=== PATIENT | male | born 1940 | race Caucasian/White ===

== ENCOUNTER → 2019-02-27 15:58 | Outpatient (CLI) | payer MEDICARE, SELFPAY | PROVIDERS: PCP Internal Medicine; Visit Provider Internal Medicine | DX: R19.5 Other fecal abnormalities (principal); R15.9 Full incontinence of feces; R19.7 Diarrhea, unspecified; C61 Malignant neoplasm of prostate ==

== ENCOUNTER → 2019-03-20 13:32 | Outpatient (CLI) | payer MEDICARE, SELFPAY ==
[2019-03-20 16:36] LABS: Thyroid Stimulating Hormone 1.55 uIU/mL (0.47-4.68)
== END ==
PROVIDERS: PCP Internal Medicine; Visit Provider Internal Medicine Cardiovascular Disease
DX: I48.91 Unspecified atrial fibrillation (principal)
CPT/HCPCS: 36415; 84443

== ENCOUNTER → 2019-03-22 15:47 | Outpatient (CLI) | payer MEDICARE, SELFPAY ==
[2019-03-22 16:54] LABS: Add Manual Diff / Slide Review NO; Basophils Absolute Auto 100 /uL (0-100); Basophils Percent Auto 0.9 % (0-2); Eosinophils Absolute Auto 300 /uL (0-450); Eosinophils Percent Auto 4.5 % (2-4); Hematocrit 40.4 % (41-53); Hemoglobin 13.5 g/dL (13.5-17.5); Lymphocytes Absolute Auto 1400 /uL (1100-4500); Lymphocytes Percent Auto 22.9 % (25-40); Mean Corpuscular HGB Conc 33.4 % (30-36); Mean Corpuscular Hemoglobin 31.8 PG (26-34); Mean Corpuscular Volume 95.3 fL (80-100); Monocytes Absolute Auto 500 /uL (0-900); Monocytes Percent Auto 8.1 % (3-14); Neutrophils Absolute Auto 3900 /uL (1500-7000); Neutrophils Percent Auto 63.6 % (50-75); Platelet Count 227 X10^3/uL (150-400); Red Blood Cell Count 4.24 X10^6/uL (4.5-5.9); Red Cell Distribution Width 14.1 % (11.6-14.8); White Blood Cell Count 6.1 X10^3/uL (4.5-11.0)
[2019-03-22 16:56] LABS: Reticulocyte Count, Percent 0.5 % (0.87-2.60)
[2019-03-22 17:19] LABS: HEMOLYSIS < 15 (0-50); Iron 102 ug/dL (49-181)
[2019-03-22 17:23] LABS: Blood Urea Nitrogen 24 mg/dL (9-20); C-Reactive Protein Quant 0.9 mg/dL (<1.0); Calcium 9.5 mg/dL (8.4-10.2); Carbon Dioxide 32 mmol/L (22-32); Chloride 102 mmol/L (98-107); Estimated Glomerular Filt Rate > 60.0 mL/min (>60); Glucose 93 mg/dL (80-110); HEMOLYSIS < 15 (0-50); Potassium 4.3 mmol/L (3.4-5.1); Sodium 139 mmol/L (137-145)
[2019-03-22 17:30] LABS: Percent Iron Saturation 32 % (20-50); Total Iron Binding Capacity 317 ug/dL (261-462); Transferrin 234 mg/dL (206-381)
[2019-03-22 17:58] LABS: Erythrocyte Sedimentation Rate 9 MM/HR (0-15)
[2019-03-22 18:28] LABS: Folate > 20.0 ng/mL (2.76-20.0); Vitamin B12 631 pg/mL (239-931)
[2019-03-24 14:55] LABS: Haptoglobin 96 mg/dL (43-212)
== END ==
PROVIDERS: PCP Internal Medicine; Visit Provider Internal Medicine
DX: D64.9 Anemia, unspecified (principal); I10 Essential (primary) hypertension; I48.91 Unspecified atrial fibrillation; Z79.01 Long term (current) use of anticoagulants
CPT/HCPCS: 36415; 80048; 82607; 82746; 83010; 83540; 83550; 85025; 85045; 85651; 86140

== ENCOUNTER → 2019-04-30 11:06 | Outpatient (CLI) | payer MEDICARE, SELFPAY ==
[2019-04-30 14:51] LABS: Adenovirus F 40/41 Not Detected (Not Detect); Astrovirus Not Detected (Not Detect); Campylobacter Not Detected (Not Detect); Clostridium difficile toxin AB Not Detected (Not Detect); Cryptosporidium Not Detected (Not Detect); Cyclospora cayetanensis Not Detected (Not Detect); Entamoeba histolytica Not Detected (Not Detect); Enteroaggregative E.coli Not Detected (Not Detect); Enteropathogenic E.coli Not Detected (Not Detect); Enterotoxigenic E.coli It/st Not Detected (Not Detect); Giardia lamblia Not Detected (Not Detect); Norovirus GI/GII Not Detected (Not Detect); Plesiomonsa shigelloides Not Detected (Not Detect); Rotavirus A Not Detected (Not Detect); Salmonella Not Detected (Not Detect); Shiga-like toxin-prod E.coli Not Detected (Not Detect); Shigella/Enteroinvasive E.coli Not Detected (Not Detect); Vibrio Not Detected (Not Detect); Vibrio cholerae Not Detected (Not Detect); Yersinia enterocolitica Not Detected (Not Detect)
== END ==
PROVIDERS: PCP Internal Medicine; Visit Provider Physician Assistant
DX: R15.9 Full incontinence of feces (principal)
CPT/HCPCS: 87507

== ENCOUNTER → 2019-10-26 15:19 | Outpatient (CLI) | payer MEDICARE, SELFPAY ==
[2019-10-26 16:42] LABS: Alanine Aminotransferase 26 IU/L (<50); Albumin 4.3 g/dL (3.5-5.0); Albumin Globulin Ratio 1.7 (1.0-2.8); Alkaline Phosphatase 79 U/L (38-126); Aspartate Aminotransferase 34 IU/L (17-59); BUN Creatinine Ratio 23.6 (6-22); Bilirubin Total 0.9 mg/dL (0.2-1.3); Blood Urea Nitrogen 26 mg/dL (9-20); C-Reactive Protein Quant 0.6 mg/dL (<1.0); Calcium 9.4 mg/dL (8.4-10.2); Carbon Dioxide 31 mmol/L (22-32); Chloride 102 mmol/L (98-107); Estimated Glomerular Filt Rate > 60.0 mL/min (>60); Globulin 2.6 g/dL (1.7-4.1); Glucose 99 mg/dL (80-110); HEMOLYSIS < 15 (0-50); Potassium 3.9 mmol/L (3.4-5.1); Sodium 140 mmol/L (137-145); Total Protein 6.9 g/dL (6.3-8.2)
[2019-10-26 16:44] LABS: Add Manual Diff / Slide Review NO; Basophils Absolute Auto 0 /uL (0-100); Basophils Percent Auto 0.7 % (0-2); Eosinophils Absolute Auto 100 /uL (0-450); Eosinophils Percent Auto 2.4 % (2-4); Hematocrit 41.2 % (41-53); Lymphocytes Absolute Auto 1200 /uL (1100-4500); Lymphocytes Percent Auto 20.8 % (25-40); Mean Corpuscular HGB Conc 33.9 % (30-36); Mean Corpuscular Hemoglobin 32.6 PG (26-34); Mean Corpuscular Volume 96.2 fL (80-100); Monocytes Absolute Auto 500 /uL (0-900); Monocytes Percent Auto 7.9 % (3-14); Neutrophils Absolute Auto 4100 /uL (1500-7000); Neutrophils Percent Auto 68.2 % (50-75); Platelet Count 210 X10^3/uL (150-400); Red Blood Cell Count 4.28 X10^6/uL (4.5-5.9); Red Cell Distribution Width 14.9 % (11.6-14.8); White Blood Cell Count 5.9 X10^3/uL (4.5-11.0)
[2019-10-26 17:34] LABS: Erythrocyte Sedimentation Rate 5 MM/HR (0-15)
== END ==
PROVIDERS: PCP Internal Medicine; Visit Provider Internal Medicine
DX: R10.9 Unspecified abdominal pain (principal)
CPT/HCPCS: 36415; 80053; 85025; 85651; 86140

== ENCOUNTER → 2019-10-30 12:37 | Outpatient (CLI) | payer MEDICARE, SELFPAY ==
--- NOTE | 2019-10-30 12:38 | DI.US.S_ITS ---
PROCEDURE: US RENAL COMPLETE INDICATIONS: RT FLANK PAIN TECHNIQUE: Real-time scanning was performed of the kidneys and bladder, with image documentation. COMPARISON: None. FINDINGS: Kidneys: Kidneys are normal in size. Right kidney measures 10.7 cm long; left kidney measures 10.6 cm long. Right renal cortical thickness is 1.1 cm; left renal cortical thickness is 1.6 cm. Renal cortical echotexture is normal. No hydronephrosis or nephrolithiasis. No suspicious solid mass lesions. Bladder: Pre-void bladder volume is 152 mL. Post-void residual is 54 mL. Pre-void images demonstrate no intraluminal masses or stones. On pre-void images, bilateral ureteral jets are noted with color Doppler interrogation. (Of note, ureteral jets may not be detectable in up to 25% of cases due to insufficient differences in specific gravity between ureteral and bladder urine). Miscellaneous: No free pelvic fluid. Incidental finding of cholelithiasis without evidence for cholecystitis. IMPRESSION: 1. No source for right flank pain identified. 2. Cholelithiasis without acute cholecystitis. Dictated by: Lukas Garcia [facility] Interpreted: Cally Escalante MD on 10/30/2019 at 15:05 Approved by: Cally Escalante M.D. on 10/30/2019 at 16:22
== END ==
PROVIDERS: PCP Internal Medicine; Visit Provider Internal Medicine
DX: R10.9 Unspecified abdominal pain (principal); K80.20 Calculus of gallbladder without cholecystitis without obstruction
CPT/HCPCS: 76770

== ENCOUNTER 2020-06-06 12:06 | Emergency (ER) | payer MEDICARE, SELFPAY ==
[2020-06-06] VITALS (15 sets, daily range): BP systolic 115–162; BP diastolic 72–94; PULSE 69–86; RESP 15–30; TEMP 36.7; O2SAT 94–98; BMI 30.1
--- NOTE | 2020-06-06 12:38 | DI.US.S_ITS ---
PROCEDURE: US CAROTID DOPPLER BI INDICATIONS: SYNCOPE TECHNIQUE: Color and pulse Doppler interrogation was performed of both carotid systems, with image documentation and velocity measurements. COMPARISON: None. FINDINGS: Stenosis calculations are based on SRU (Society of Radiologists in Ultrasound) criteria. Right side: Brachial blood pressure: 125/79 mm Hg. Common carotid artery peak systolic velocity: 63 cm/sec. Internal carotid artery peak systolic velocity: 32 cm/sec. Internal carotid artery end diastolic velocity: 14 cm/sec. External carotid artery peak systolic velocity: 74 cm/sec. ICA/CCA peak systolic ratio: 0.5 . Yu scale imaging description: Mild soft plaque Percent internal carotid artery stenosis: Less than 50% stenosis . Vertebral artery: Flow direction is not identified. Left side: Brachial blood pressure: 128/88 mm Hg. Common carotid artery peak systolic velocity: 54 cm/sec. Internal carotid artery peak systolic velocity: 44 cm/sec. Internal carotid artery end diastolic velocity: 16 cm/sec. External carotid artery peak systolic velocity: 70 cm/sec. ICA/CCA peak systolic ratio: 0.8 . Yu scale imaging description: Pqja-mg-[id number] soft plaque Percent internal carotid artery stenosis: Less than 50% stenosis . Vertebral artery: Flow direction is antegrade. IMPRESSION: Mild to moderate soft plaque within the carotid arteries, no significant stenosis found. Based on the imaging findings less than 50% stenosis is estimated to be present at each proximal internal carotid artery. Nonvisualization of the right vertebral artery likely due to a normal anatomic variant diminutive right vertebral vessel. Dictated by: Tarik Snow M.D. on 06/06/2020 at 13:50 Approved by: Tarik Snow M.D. on 06/06/2020 at 13:52
--- NOTE | 2020-06-06 12:38 | DI.CT.S_ITS ---
PROCEDURE: CT HEAD/BRAIN WO CON INDICATIONS: fall coumadin TECHNIQUE: Noncontrast 4.5 mm thick angled axial sections acquired from the foramen magnum to the vertex, with coronal and sagittal reformats. For radiation dose reduction, the following was used: automated exposure control, adjustment of mA and/or kV according to patient size. COMPARISON: None. FINDINGS: Image quality: Excellent. CSF spaces: Basal cisterns are patent. No extra-axial fluid collections. The ventricles are symmetric in size and shape. Brain: No intracranial bleeds or masses. There is cerebral volume loss for age, with resultant ventricular and sulcal prominence. There are periventricular and deep white matter chronic small vessel ischemic changes. There is intracranial internal carotid artery atherosclerosis. Skull and face: Calvarium and visualized facial bones appear intact, without suspicious lesions. Sinuses: Visualized sinuses and mastoids are clear. IMPRESSION: Mild microvascular atherosclerotic change in the deep white matter of each hemisphere but no brain injury is found. Note is made of a mild cephalohematoma involving the midline and left paramedian forehead region. Dictated by: Tarik Snow M.D. on 06/06/2020 at 13:54 Approved by: Tarik Snow M.D. on 06/06/2020 at 13:54
--- NOTE | 2020-06-06 12:39 | DI.RAD.S_ITS ---
PROCEDURE: XR CHEST 1V INDICATIONS: syncope TECHNIQUE: One view of the chest was acquired. COMPARISON: None. FINDINGS: Surgical changes and devices: None. Lungs and pleura: Lungs are clear. No pleural effusions or pneumothorax. Mediastinum: Mediastinal contours appear normal. Heart size is normal. Bones and chest wall: No suspicious bony lesions. Overlying soft tissues appear unremarkable. IMPRESSION: No acute disease. Dictated by: Javier Jim M.D. on 06/06/2020 at 13:38 Approved by: Javier Jim M.D. on 06/06/2020 at 13:39
--- NOTE | 2020-06-06 12:54 | ED_ITS ---
HPI - Syncope General Chief Complaint: Trauma Stated Complaint: fainted last night, hit forehead on carpet Time Seen by Provider: 06/06/20 12:31 Source: patient Mode of arrival: Family Vehicle Limitations: no limitations History of Present Illness HPI narrative: Patient is an 80-year-old male who presents after syncopal episode last evening. He states he got up from his reclining chair he walked around the corner and his heard him pass out hitting his face and head. He is on Coumadin for atrial fibrillation. He states that he may have felt like he was going to pass out he had some brief episode of dizziness but it was too brief for him to do anything before he hit the ground. He thought he could get to the bed but he was unable to do so. His states that he was out for quite some time but he was able to turn his head and come to. They decided to wait until morning is for him to be evaluated. He currently denies any chest pain numbness tingling or weakness. He has a large contusion on left side of his head. He said this happened to him once before 13 years ago prior to when he was diagnosed with atrial fibrillation MD complaint: loss of consciousness and collapsed Related Data Home Medications Medication Instructions Recorded Confirmed metoprolol tartrate 75 mg tablet 75 mg PO BID 03/22/19 11/01/19 Previous Rx's Medication Instructions Recorded tamsulosin 0.4 mg capsule 0.4 mg PO DAILY #90 cap 01/01/20 warfarin 5 mg tablet 5 mg PO DAILY #90 tab 01/01/20 furosemide 20 mg tablet 20 mg PO DAILY #90 tab 01/03/20 allopurinol 300 mg tablet 300 mg PO DAILY #90 tab 06/02/20 Allergies Allergy/AdvReac Type Severity Reaction Status Date / Time No Known Drug Allergies Allergy Verified 06/06/20 12:38 Review of Systems Review of Systems Narrative: GENERAL: Denies chills, fatigue, malaise, fever, sweats, travel HEENT: Denies sinus pain, ear pain, sore throat, difficulty swallowing, neck pain RESPIRATORY: Denies dyspnea, cough, wheezing, hemoptysis, sputum. CARDIOVASCULAR: See HPI GASTROINTESTINAL: Denies nausea, vomiting, abdominal pain, diarrhea, constipation, melena. : Denies dysuria, frequency, incontinence, hematuria, urinary retention, flank pain. MUSCULOSKELETAL: Denies weakness, joint pain, or bony pain SKIN: No rash, no erythema, no pruritus NEUROLOGIC: Denies weakness, dizziness, headache, numbness, change in speech, confusion PSYCHIATRIC: No concerning psychosocial issues. 12 point review of systems is negative except for those stated above and HPI Patient History Medical History Anemia (Chronic) Atrial fibrillation (Chronic ~2006) Chicken pox (Resolved) Fecal incontinence (Chronic ~2014) Gout (Chronic ~1996) Hearing loss (Chronic ~1971) Herpes (Resolved) Hypertension (Chronic ~2006) Kidney stones (Inactive ~2009) Low testosterone (Chronic ~2011) Measles (Resolved) Melanoma (Resolved ~2017) Mumps (Resolved) Peripheral edema (Chronic) Prostate cancer (Inactive ~2011) Seasonal allergies (Chronic ~2009) Urinary incontinence (Acute) Vision disorder (Chronic) Surgical History Carcinoma (Inactive ~2016) History of rotator cuff surgery (Inactive ~1994) Family History Father Cancer Hypertension Sister Stomach problems Grandfather Lung disease Grandmother No problems noted. Social History Smoking Status: Former smoker Smoking Status: Former smoker alcohol intake frequency: 0-2 drinks per day Alcohol type: wine Substance Use Type: does not use Exam Initial Vital Signs Initial Vital Signs: Vital Signs Temperature 98.0 F 06/06/20 12:33 Pulse Rate 81 06/06/20 12:33 Respiratory Rate 17 06/06/20 12:33 Blood Pressure 123/79 06/06/20 12:33 Pulse Oximetry 97 06/06/20 12:33 GENERAL: Well-appearing, well-nourished and in no acute distress. HEENT: Head contusion left forehead extraocular muscles intact NECK: No vertebral tenderness step-offs pain with flexion and extension no pain with rotation CARDIOVASCULAR: Regular rate and rhythm without murmurs, rubs or gallops. RESPIRATORY: Breath sounds equal bilaterally, no wheezes rales or rhonchi. ABDOMEN: Soft, nontender. Normoactive bowel sounds all 4 quadrants. No guarding or rebound. EXTREMITIES: Normal range of motion, no clubbing or edema. Neurovascularly intact NEUROLOGICAL: Alert and oriented x4.Normal gait and speech. Forming Process Line Worker strength equal bilaterally SKIN: Warm, dry, no laceration, no petechiae, no rashes or lesions. Scores NIH Stroke Scale Level of Conciousness: Alert, keenly responsive Ask month/age: Answers both questions correctly. Open/close eyes, close hand: Performs both tasks correctly Best gaze horizontal: Normal Visual colindres: No visual loss Facial palsy: Normal symetrical movement Left arm drift: No drift for full 10 sec Right arm drift: No drift for full 10 sec Left leg drift: No drift for full 10 sec Right leg drift: No drift for full 10 sec Limb ataxia: Absent Sensory on face/arms/legs: Normal, no sensory loss Best language: No aphasia, normal Dysarthria: Normal Extinction or inattention: No abnormality Total NIH Stroke scale score: 0 Course Orders Ordered: ED Orders 06/06/20 12:38 CT head/brain wo con Stat US carotid doppler BI Stat 06/06/20 12:39 XR chest 1V Stat 06/06/20 12:40 EKG-12 Lead Stat 06/06/20 13:19 CT cervical spine wo con Stat 06/06/20 13:22 Complete Blood Count AUTO DIFF Stat Comprehensive Metabolic Panel Stat Lipase Stat Partial Thromboplastin Time Stat Prothrombin Time INR Stat Troponin & CK Cardiac Panel Stat 06/06/20 15:21 Troponin I Stat Discontinued Medications Sodium Chloride (Normal Saline 0.9%) 1,000 mls @ 150 mls/hr IV CONT HEIKE Last Infusion: 06/06/20 17:28 Dose: 0 mls/hr Documented by: Admin: 06/06/20 13:00 Dose: 150 mls/hr Documented by: MANOJ Vital Signs Vital signs: Vital Signs - 8 hr 06/06/20 12:33 06/06/20 12:34 06/06/20 13:00 Temperature 98.0 F Pulse Rate 81 86 75 Respiratory Rate 17 23 26 H Blood Pressure 123/79 Pulse Oximetry 97 96 95 06/06/20 13:03 06/06/20 13:04 06/06/20 13:15 Temperature Pulse Rate 74 73 77 Respiratory Rate 26 H 21 30 H Blood Pressure 128/88 125/79 128/87 Pulse Oximetry 95 96 96 06/06/20 13:30 06/06/20 14:00 06/06/20 14:30 Temperature Pulse Rate 70 72 70 Respiratory Rate 20 20 Blood Pressure 115/72 120/80 138/85 Pulse Oximetry 97 94 96 06/06/20 15:00 06/06/20 15:30 06/06/20 16:00 Temperature Pulse Rate 69 70 70 Respiratory Rate 19 15 18 Blood Pressure 153/90 H 151/88 H Pulse Oximetry 96 97 98 06/06/20 16:30 06/06/20 17:00 06/06/20 17:03 Temperature Pulse Rate 71 71 77 Respiratory Rate 23 28 H 18 Blood Pressure 143/88 H 162/82 H 151/94 H Pulse Oximetry 97 97 98 MDM - Syncope Lab Data Attestation: I reviewed the patient's lab results. Result diagrams: 06/06/20 13:22 06/06/20 13:22 Labs: Lab Results 06/06/20 06/06/20 06/06/20 Range/Units 13:22 13:22 13:22 WBC 8.3 (4.5-11.0) X10^3/uL RBC 4.23 L (4.5-5.9) X10^6/uL Hgb 13.7 (13.5-17.5) g/dL Hct 40.8 L (41-53) % MCV 96.5 (80-100) fL MCH 32.3 (26-34) PG MCHC 33.5 (30-36) % RDW 14.6 (11.6-14.8) % Plt Count 187 (150-400) X10^3/uL Neut % (Auto) 76.3 H (50-75) % Lymph % (Auto) 14.0 L (25-40) % [place] % (Auto) 7.2 (3-14) % Eos % (Auto) 1.5 L (2-4) % Baso % (Auto) 1.0 (0-2) % Neut # (Auto) 6300 (3169-3314) /uL Lymph # (Auto) 1200 (2759-3937) /uL [place] # (Auto) 600 (0-900) /uL Eos # (Auto) 100 (0-450) /uL Baso # (Auto) 100 (0-100) /uL PT 29.0 H (10.1-12.7) SECONDS INR 2.6 H (0.9-1.3) APTT 41 H (26.4-36.2) SECONDS Sodium 138 (137-145) mmol/L Potassium 4.0 (3.4-5.1) mmol/L Chloride 105 (98-107) mmol/L Carbon Dioxide 28 (22-32) mmol/L BUN 25 H (9-20) mg/dL Creatinine 0.95 (0.66-1.25) mg/dL Estimated GFR > 60.0 (>60) mL/min BUN/Creatinine Ratio 26.3 H (6-22) Glucose 103 (80-110) mg/dL Calcium 9.1 (8.4-10.2) mg/dL Total Bilirubin 1.2 (0.2-1.3) mg/dL AST 36 (17-59) IU/L ALT 28 (<50) IU/L Alkaline Phosphatase 86 (38-126) U/L Total Creatine Kinase 151 (55-170) U/L CK-MB (CK-2) 2.67 H (<2.37) ng/mL CK-MB (CK-2) Rel Index 1.8 (1.5-5.0) % Troponin I 0.101 H (0.01-0.034) ng/mL Total Protein 6.9 (6.3-8.2) g/dL Albumin 4.1 (3.5-5.0) g/dL Globulin 2.8 (1.7-4.1) g/dL Albumin/Globulin Ratio 1.5 (1.0-2.8) Lipase 153 (23-300) U/L 06/06/ Range/Units 15:21 WBC (4.5-11.0) X10^3/uL RBC (4.5-5.9) X10^6/uL Hgb (13.5-17.5) g/dL Hct (41-53) % MCV (80-100) fL MCH (26-34) PG MCHC (30-36) % RDW (11.6-14.8) % Plt Count (150-400) X10^3/uL Neut % (Auto) (50-75) % Lymph % (Auto) (25-40) % [place] % (Auto) (3-14) % Eos % (Auto) (2-4) % Baso % (Auto) (0-2) % Neut # (Auto) (4307-8414) /uL Lymph # (Auto) (0577-4768) /uL [place] # (Auto) (0-900) /uL Eos # (Auto) (0-450) /uL Baso # (Auto) (0-100) /uL PT (10.1-12.7) SECONDS INR (0.9-1.3) APTT (26.4-36.2) SECONDS Sodium (137-145) mmol/L Potassium (3.4-5.1) mmol/L Chloride (98-107) mmol/L Carbon Dioxide (22-32) mmol/L BUN (9-20) mg/dL Creatinine (0.66-1.25) mg/dL Estimated GFR (>60) mL/min BUN/Creatinine Ratio (6-22) Glucose (80-110) mg/dL Calcium (8.4-10.2) mg/dL Total Bilirubin (0.2-1.3) mg/dL AST (17-59) IU/L ALT (<50) IU/L Alkaline Phosphatase (38-126) U/L Total Creatine Kinase (55-170) U/L CK-MB (CK-2) (<2.37) ng/mL CK-MB (CK-2) Rel Index (1.5-5.0) % Troponin I 0.089 H (0.01-0.034) ng/mL Total Protein (6.3-8.2) g/dL Albumin (3.5-5.0) g/dL Globulin (1.7-4.1) g/dL Albumin/Globulin Ratio (1.0-2.8) Lipase (23-300) U/L Imaging Data CT scan - head: Radiologist's Impression: PROCEDURE: CT HEAD/BRAIN WO CON INDICATIONS: fall coumadin TECHNIQUE: Noncontrast 4.5 mm thick angled axial sections acquired from the foramen magnum to the vertex, with coronal and sagittal reformats. For radiation dose reduction, the following was used: automated exposure control, adjustment of mA and/or kV according to patient size. COMPARISON: None. FINDINGS: Image quality: Excellent. CSF spaces: Basal cisterns are patent. No extra-axial fluid collections. The ventricles are symmetric in size and shape. Brain: No intracranial bleeds or masses. There is cerebral volume loss for age, with resultant ventricular and sulcal prominence. There are periventricular and deep white matter chronic small vessel ischemic changes. There is intracranial internal carotid artery atherosclerosis. Skull and face: Calvarium and visualized facial bones appear intact, without nguyen spicious lesions. Sinuses: Visualized sinuses and mastoids are clear. IMPRESSION: Mild microvascular atherosclerotic change in the deep white matter of each hemisphere but no brain injury is found. Note is made of a mild cephalohematoma involving the midline and left paramedian forehead region. Dictated by: Tarik Snow M.D. on 06/06/2020 at 13:54 Approved by: Tarik Sonw M.D. on 06/06/2020 at 13:54 CT - cervical spine: Radiologist's Impression: PROCEDURE: CT CERVICAL SPINE WO CON INDICATIONS: fall coumadin last night TECHNIQUE: Noncontrast 3 mm thick sections acquired from the skull base to the T4 level. Sagittal and coronal reformats were then constructed. For radiation dose reduction, the following was used: automated exposure control, adjustment of mA and/or kV according to patient size. COMPARISON: None. FINDINGS: Image quality: Excellent. Bones: No fractures or dislocations. Visualized superior ribs are intact. Soft tissues: Prevertebral soft tissues are normal in thickness. No paravertebral hematomas. No apical pneumothoraces. IMPRESSION: Nnhs-gn-[id number] degenerative disc disease and facet osteoarthritis along cervical spine but no fracture or traumatic subluxation is seen. Dictated by: Tarik Snow M.D. on 06/06/2020 at 13:52 Chest x-ray: Radiologist's Impression: PROCEDURE: XR CHEST 1V INDICATIONS: syncope TECHNIQUE: One view of the chest was acquired. COMPARISON: None. FINDINGS: Surgical changes and devices: None. Lungs and pleura: Lungs are clear. No pleural effusions or pneumothorax. Mediastinum: Mediastinal contours appear normal. Heart size is normal. Bones and chest wall: No suspicious bony lesions. Overlying soft tissues appear unremarkable. IMPRESSION: No acute disease. Dictated by: Javier Jim M.D. on 06/06/2020 at 13:38 carotid doppler: Radiologist's Impression: PROCEDURE: US CAROTID DOPPLER BI INDICATIONS: SYNCOPE TECHNIQUE: Color and pulse Doppler interrogation was performed of both carotid systems, with image documentation and velocity measurements. COMPARISON: None. FINDINGS: Stenosis calculations are based on SRU (Society of Radiologists in Ultrasound) criteria. Right side: Brachial blood pressure: 125/79 mm Hg. Common carotid artery peak systolic velocity: 63 cm/sec. Internal carotid artery peak systolic velocity: 32 cm/sec. Internal carotid artery end diastolic velocity: 14 cm/sec. External carotid artery peak systolic velocity: 74 cm/sec. ICA/CCA peak systolic ratio: 0.5 . Yu scale imaging description: Mild soft plaque Percent internal carotid artery stenosis: Less than 50% stenosis . Vertebral artery: Flow direction is not identified. Left side: Brachial blood pressure: 128/88 mm Hg. Common carotid artery peak systolic velocity: 54 cm/sec. Internal carotid artery peak systolic velocity: 44 cm/sec. Internal carotid artery end diastolic velocity: 16 cm/sec. External carotid artery peak systolic velocity: 70 cm/sec. ICA/CCA peak systolic ratio: 0.8 . Yu scale imaging description: Aini-jm-ikexwkje soft plaque Percent internal carotid artery stenosis: Less than 50% stenosis . Vertebral artery: Flow direction is antegrade. IMPRESSION: Mild to moderate soft plaque within the carotid arteries, no significant stenosis found. Based on the imaging findings less than 50% stenosis is estimated to be present at each proximal internal carotid artery. Nonvisualization of the right vertebral artery likely due to a normal anatomic variant diminutive right vertebral vessel. Dictated by: Tarik Snow M.D. on 06/06/2020 at 13:50 Approved by: Tarik Snow M.D. on 06/06/2020 at 13:52 ECG Data Attestation: I personally reviewed and interpreted this ECG as follows: Prior ECG tracings: not available for review Interpretation: Atrial fibrillation rate [address] changes no prior to compare [facility] Narrative Medical decision making narrative: The patient had a likely syncopal episode last evening falling and hitting his head while on Coumadin. Scans are negative carotid Doppler is also reassuring. However troponin is noted to be indet erminate. Patient denies any chest pain at all or palpitations shortness of breath he has no symptoms concerning for acute coronary syndrome. Repeat troponin has decreased. I touch base with patient's primary care provider Dr. Rizo who follow-up with patient in the clinic. At this time patient feels ready and able to go home. Discharge Plan Departure Patient Disposition: Home Clinical Impression: Closed head injury Qualifiers: Encounter type: initial encounter Qualified Code(s): S09.90XA - Unspecified injury of head, initial encounter Atrial fibrillation Qualifiers: Atrial fibrillation type: persistent (not longstanding) Qualified Code(s): I48.19 - Other persistent atrial fibrillation Discharge Date/Time: 06/06/20 18:33 Instructions: Closed Head Injury Activity Restrictions/Additional Instructions: *You have been diagnosed with closed head injury in atrial fibrillation *What to do: Be sure that when You fallen and your head is extremely important to come to the emergency department immediately specially because you are on warfarin which can cause internal brain bleeding *Continue to take medications as directed *Follow up with your primary care provider in 2-3 days *Return to ER if you should have increased confusion, weakness, chest pain, shortness of breath or any new, worsening or concerning symptoms Prescriptions: No Action tamsulosin 0.4 mg capsule 0.4 mg PO DAILY Qty: 90 RF: 1 warfarin 5 mg tablet 5 mg PO DAILY Qty: 90 RF: 3 furosemide 20 mg tablet 20 mg PO DAILY Qty: 90 RF: 1 allopurinol 300 mg tablet 300 mg PO DAILY Qty: 90 RF: 3 metoprolol tartrate 75 mg tablet 75 mg PO BID RF: 0 Referrals: Stan Rizo MD [Primary Care Provider] -
[2020-06-06] MEDS: SODIUM CHLORIDE 0.9% 1,000 ML 150 ML IV (13:00)
--- NOTE | 2020-06-06 13:08 | PC.NURSE ---
pt to ct
--- NOTE | 2020-06-06 13:19 | DI.CT.S_ITS ---
PROCEDURE: CT CERVICAL SPINE WO CON INDICATIONS: fall coumadin last night TECHNIQUE: Noncontrast 3 mm thick sections acquired from the skull base to the T4 level. Sagittal and coronal reformats were then constructed. For radiation dose reduction, the following was used: automated exposure control, adjustment of mA and/or kV according to patient size. COMPARISON: None. FINDINGS: Image quality: Excellent. Bones: No fractures or dislocations. Visualized superior ribs are intact. Soft tissues: Prevertebral soft tissues are normal in thickness. No paravertebral hematomas. No apical pneumothoraces. 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 Dictated by: Tarik Snow M.D. on 06/06/2020 at 13:52 Approved by: Tarik Snow M.D. on 06/06/2020 at 13:53
[2020-06-06 13:30] LABS: Add Manual Diff / Slide Review NO; Basophils Absolute Auto 100 /uL (0-100); Eosinophils Absolute Auto 100 /uL (0-450); Eosinophils Percent Auto 1.5 % (2-4); Hematocrit 40.8 % (41-53); Hemoglobin 13.7 g/dL (13.5-17.5); Lymphocytes Absolute Auto 1200 /uL (1100-4500); Mean Corpuscular HGB Conc 33.5 % (30-36); Mean Corpuscular Hemoglobin 32.3 PG (26-34); Mean Corpuscular Volume 96.5 fL (80-100); Monocytes Absolute Auto 600 /uL (0-900); Monocytes Percent Auto 7.2 % (3-14); Neutrophils Absolute Auto 6300 /uL (1500-7000); Neutrophils Percent Auto 76.3 % (50-75); Platelet Count 187 X10^3/uL (150-400); Red Blood Cell Count 4.23 X10^6/uL (4.5-5.9); Red Cell Distribution Width 14.6 % (11.6-14.8); White Blood Cell Count 8.3 X10^3/uL (4.5-11.0)
[2020-06-06 13:38] LABS: INR 2.6 (0.9-1.3)
[2020-06-06 13:40] LABS: PTT Partial Thromboplastin Tim 41 SECONDS (26.4-36.2)
[2020-06-06 13:42] LABS: Alanine Aminotransferase 28 IU/L (<50); Albumin 4.1 g/dL (3.5-5.0); Albumin Globulin Ratio 1.5 (1.0-2.8); Alkaline Phosphatase 86 U/L (38-126); Aspartate Aminotransferase 36 IU/L (17-59); BUN Creatinine Ratio 26.3 (6-22); Bilirubin Total 1.2 mg/dL (0.2-1.3); Blood Urea Nitrogen 25 mg/dL (9-20); Calcium 9.1 mg/dL (8.4-10.2); Carbon Dioxide 28 mmol/L (22-32); Chloride 105 mmol/L (98-107); Creatine Kinase 151 U/L (55-170); Estimated Glomerular Filt Rate > 60.0 mL/min (>60); Globulin 2.8 g/dL (1.7-4.1); Glucose 103 mg/dL (80-110); HEMOLYSIS < 15 (0-50); Lipase 153 U/L (23-300); Sodium 138 mmol/L (137-145); Total Protein 6.9 g/dL (6.3-8.2)
[2020-06-06 13:55] LABS: Troponin I 0.101 ng/mL (0.01-0.034)
[2020-06-06 13:57] LABS: CKMB % Relative Index 1.8 % (1.5-5.0); Creatine Kinase MB 2.67 ng/mL (<2.37)
[2020-06-06 15:52] LABS: Troponin I 0.089 ng/mL (0.01-0.034)
== END 2020-06-06 18:33 | disposition home or self-care (01) ==
PROVIDERS: Emergency Provider Emergency Medicine; PCP Internal Medicine
DX: S09.90XA Unspecified injury of head, initial encounter (principal); I48.19 Other persistent atrial fibrillation; Z79.01 Long term (current) use of anticoagulants; R55 Syncope and collapse; S00.93XA Contusion of unspecified part of head, initial encounter
CPT/HCPCS: 36415; 70450; 71045; 72125; 80053; 82550; 82553; 83690; 84484; 85025; 85610; 85730; 93005; 93010; 93880; 96360; 96361; 99284

== ENCOUNTER → 2020-06-18 13:58 | Outpatient (CLI) | payer MEDICARE, SELFPAY ==
--- NOTE | 2020-07-10 09:28 | P.HOLT.S_ITS ---
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 These 5 events were associated variably with atrial fibrillation and PVCs. (Patient was continuously in atrial fibrillation) Data: minimum heart rate identified was 46 beats per minute at 11:28 on 27 June 2020. Maximum heart rate was 210 beats per minute at 23:38 on 01 July 2020 during a 9 beat run of nonsustained ventricular tachycardia Patient was continuously in atrial fibrillation as above with heart rate ranging between 46 and 189 beats per minute Patient had less than 1% of identified beats as ventricular ectopic in origin There were 21 runs of nonsustained ventricular tachycardia the fastest being 9 beat run as above at 210 beats per minute. The longest run was Falcon 0.5 seconds long at a much lower rate of 120 beats per minute and could well be consistent with alternate ventricular conduction of his atrial fibrillation rather than true VT. Impression: Patient with continuous atrial fibrillation with relatively controlled rate. Also with significant episodes of nonsustained ventricular tachycardia Clinical correlation suggested
== END ==
PROVIDERS: Family Provider Internal Medicine; PCP Internal Medicine; Referring Provider Internal Medicine; Visit Provider Internal Medicine
DX: R55 Syncope and collapse (principal)
CPT/HCPCS: 0296T; 0298T

== ENCOUNTER → 2020-07-17 14:50 | Outpatient (CLI) | payer MEDICARE, SELFPAY ==
--- NOTE | 2020-07-17 14:54 | DI.ECHO.S_ITS ---
[facility] +---------+ : : [address] : [address] : : : : [id number] : : : : Phone: [phone]+ Echocardiogram Report + + :Name: AZIZA FARMER Study Date: 07/17/2020 Height: 73 in : :[facility] Weight: 210 lb : : Gender: Male BSA: 2.2 m2 : :: 1940 Age: 80 yrs BP: 126/89 mmHg: :Reason For Study: AFIB, VENT TACHYCARDIA : :Ordering Physician: SAMMI, : :CAMMY Cavazos Performed By: Yoli Irving : :Referring: CAMMY CHAPA : + + Interpretation Summary 1) Normal left ventricular size with mildly increased thickness and low normal systolic function (EF 50-55%). 2) Normal right ventricular size with mildly reduced function. 3) Both atria are very severely dilated. 4) There is mild to moderate mitral regurgitation. 5) There is moderate tricuspid regurgitation. 6) The right ventricular systolic pressure is estimated to be at least 38 mmHg based on an estimated right atrial pressure of 8 mm Hg. 7) The ascending aorta is moderately enlarged at 4.7cm. 8) Compared to the Echo done 04/16/2019, no significant change. Procedure: A two-dimensional transthoracic echocardiogram with color flow and Doppler was performed. The study quality was technically adequate. Comparison is made with the echocardiogram of 04/16/2019. The patient was in atrial fibrillation with heart rates between 73-91 bpm during the exam. Left Ventricle: The left ventricle is normal in size. Left ventricular wall thickness is mildly increased. The ejection fraction is estimated to be 50- 55%. Diastolic function could not be accurately assessed due to atrial fibrillation. Right Ventricle: The right ventricle is normal size. Right ventricular systolic function is mildly reduced. Atria: Both atria are severely dilated. There is no Doppler evidence for an interatrial shunt. Mitral Valve: The mitral valve is normal in structure but abnormal in function. There is mild to moderate mitral regurgitation. Aortic Valve: The aortic valve is trileaflet. The aortic valve opens well. There is no aortic valve stenosis. There is trace aortic regurgitation. Tricuspid Valve: The tricuspid valve is normal in structure but is abnormal in function. There is moderate tricuspid regurgitation. The right ventricular systolic pressure is estimated to be at least 38 mmHg based on an estimated right atrial pressure of 8 mm Hg. Pulmonic Valve: The pulmonic valve is not well visualized. There is a trace or physiologic amount of pulmonic regurgitation. Great Vessels: The aortic root is mildly dilated. The ascending aorta is moderately enlarged. The IVC is dilated (diameter is greater than 2.1 cm) yet it collapses greater than 50% with a sniff. This suggests a right atrial pressure of 8 mm Hg. Pericardium/ Pleura There is no pericardial effusion. There is no pleural effusion. MMode/2D Measurements & Calculations LVIDd: 4.6 cm LVOT diam: 2.3 cm LVIDs: 3.4 cm Ao root diam: 4.2 cm FS: 26.7 % asc Aorta Diam: 4.7 cm EPSS: 0.51 cm Ao Arch Diam (Prox Trans): 3.0 cm IVSd: 0.93 cm LVPWd: 1.2 cm LV buchanan. diameter/BSA (cm/m^2): 2.1 LV sys. diameter/BSA (cm/m^2): 1.5 LA A2 area: 45.2 cm2 RA long axis: 8.8 cm LA A4 area: 44.8 cm2 RA area: 42.2 cm2 LA length (vol): 8.8 cm RA vol: 171.5 ml LA vol: 196.1 ml RA : 78.1 ml/m2 LA vol index: 89.3 ml/m2 IVC diam: 2.2 cm RVD1 (basal): 3.6 cm TAPSE: 1.6 cm Doppler Measurements & Calculations Ao V2 max: 102.6 cm/sec LVOT Max Tony: 63.4 cm/sec Ao V2 mean: 72.0 cm/sec LV V1 max P.6 mmHg Ao max P.2 mmHg LV V1 VTI: 11.6 cm Ao mean P.3 mmHg SILVINO(I,D): 2.6 cm2 Ao V2 VTI: 18.2 cm SILVINO(V,D): 2.5 cm2 sev ratio: 0.64 SILVINO indexed to BSA (cm^2/m^2): 1.2 MV E max tony: 83.6 cm/sec TR max tony: 270.6 cm/sec MV A max tony: 1.6 cm/sec TR max P.1 mmHg MV E/A: 52.3 PA V2 max: 38.4 cm/sec Med Peak E' Tony: 7.5 cm/sec PA V2 mean: 25.5 cm/sec E/E' med: 11.1 PA mean P.30 mmHg Lat Peak E' Tony: 12.2 cm/sec PA pr(Accel): 34.0 mmHg E/E' lat: 6.8 E/e' average: 9.0 MV dec time: 0.17 sec SV(LVOT): 47.4 ml Reading Physician:11:04 AM
== END ==
PROVIDERS: Family Provider Internal Medicine; PCP Internal Medicine; Referring Provider Internal Medicine; Visit Provider Internal Medicine
DX: I08.1 Rheumatic disorders of both mitral and tricuspid valves (principal); I77.89 Other specified disorders of arteries and arterioles; I48.19 Other persistent atrial fibrillation; I47.2 Ventricular tachycardia
CPT/HCPCS: 93306

== ENCOUNTER → 2021-12-16 09:45 | Outpatient (CLI) | payer MEDICARE, SELFPAY ==
[2021-12-16 11:13] LABS: Add Manual Diff / Slide Review NO; Basophils Absolute Auto 0 /uL (0-100); Basophils Percent Auto 0.8 % (0-2); Eosinophils Absolute Auto 200 /uL (0-450); Eosinophils Percent Auto 3.1 % (2-4); Hematocrit 40.6 % (41-53); Hemoglobin 13.7 g/dL (13.5-17.5); Lymphocytes Absolute Auto 1200 /uL (1100-4500); Mean Corpuscular HGB Conc 33.9 % (30-36); Mean Corpuscular Hemoglobin 32.8 PG (26-34); Mean Corpuscular Volume 96.7 fL (80-100); Monocytes Absolute Auto 400 /uL (0-900); Neutrophils Absolute Auto 3100 /uL (1500-7000); Neutrophils Percent Auto 62.1 % (50-75); Platelet Count 170 X10^3/uL (150-400); Red Cell Distribution Width 14.7 % (11.6-14.8)
[2021-12-16 11:31] LABS: Alanine Aminotransferase 30 IU/L (<50); Albumin 4.1 g/dL (3.5-5.0); Albumin Globulin Ratio 1.6 (1.0-2.8); Alkaline Phosphatase 74 U/L (38-126); Aspartate Aminotransferase 33 IU/L (17-59); BUN Creatinine Ratio 25.8 (6-22); Bilirubin Total 1.2 mg/dL (0.2-1.3); Blood Urea Nitrogen 24 mg/dL (9-20); Calcium 9.2 mg/dL (8.4-10.2); Carbon Dioxide 28 mmol/L (22-32); Chloride 105 mmol/L (98-107); Cholesterol 147 mg/dL (140-199); Estimated Glomerular Filt Rate > 60.0 mL/min (>60); Globulin 2.6 g/dL (1.7-4.1); Glucose 94 mg/dL (80-110); HDL Cholesterol 48 mg/dL (40-60); HEMOLYSIS < 15 (0-50); LDL Cholesterol Calculated 86 mg/dL (<100); Potassium 3.8 mmol/L (3.4-5.1); Sodium 139 mmol/L (137-145); Total Protein 6.7 g/dL (6.3-8.2); Triglycerides 67 mg/dL (35-150); Uric Acid 4.6 mg/dL (3.5-8.5)
== END ==
PROVIDERS: Family Provider Internal Medicine; PCP Internal Medicine; Referring Provider Internal Medicine; Visit Provider Internal Medicine
DX: I10 Essential (primary) hypertension (principal); I48.19 Other persistent atrial fibrillation; M10.9 Gout, unspecified; Z13.6 Encounter for screening for cardiovascular disorders; Z79.01 Long term (current) use of anticoagulants
CPT/HCPCS: 36415; 80053; 80061; 84550; 85025

== ENCOUNTER → 2022-04-06 10:52 | Outpatient (CLI) | payer MEDICARE, SELFPAY ==
[2022-04-06 12:31] LABS: Blood Urea Nitrogen 26 mg/dL (9-20); Carbon Dioxide 34 mmol/L (22-32); Chloride 99 mmol/L (98-107); Estimated Glomerular Filt Rate > 60 mL/min (>60); Glucose 86 mg/dL (80-110); HEMOLYSIS < 15 (0-50); Potassium 3.7 mmol/L (3.4-5.1); Sodium 141 mmol/L (137-145)
== END ==
PROVIDERS: Family Provider Internal Medicine; PCP Internal Medicine; Referring Provider Nurse Practitioner Acute Care; Visit Provider Nurse Practitioner Acute Care
DX: I50.9 Heart failure, unspecified (principal)
CPT/HCPCS: 36415; 80048

== ENCOUNTER → 2022-05-17 12:03 | Outpatient (CLI) | payer MEDICARE, SELFPAY ==
--- NOTE | 2022-05-17 | DI.ECHO.S_ITS ---
[facility]---------+ [facility] +---------+ : : [address] : [address] : : : : [id number] : : : : Phone: [phone]+ Echocardiogram Report + + :Name: AZIZA FARMER Study Date: 05/17/2022 Height: 71 in : :[facility] ReadingLocation: Weight: 216 lb : : Gender: Male BSA: 2.2 m2 : :: 1940 Age: 82 yrs BP: 103/77 mmHg: :Reason For Study: VENTRICULAR TACHYCARDIA : :Ordering Physician: MATT, : :SHAHRAM TRAYLOR Performed By: Yoli Irving : :Referring: SHAHRAM GUTIERREZ : + + Interpretation Summary There is mild concentric left ventricular hypertrophy. The ejection fraction is estimated to be 45-50%. There is apical hypokinesis. There is severe biatrial enlargement. There is mild mitral regurgitation. There is mild to moderate tricuspid regurgitation. The right ventricular systolic pressure is estimated to be at least 34 mmHg based on an estimated right atrial pressure of 8 mm Hg. The ascending aorta is moderately enlarged.46mm, no change from 2019 Procedure: A two-dimensional transthoracic echocardiogram with color flow and Doppler was performed. The study quality was technically adequate. Comparison is made with the echocardiogram of 07/17/2020. The patient was in atrial fibrillation with heart rates between 69-95 bpm during the exam. Left Ventricle: The left ventricle is normal in size. There is mild concentric left ventricular hypertrophy. The ejection fraction is estimated to be 45-50%. There is apical hypokinesis. Right Ventricle: The right ventricle is borderline dilated. Right ventricular systolic function is mildly reduced. Atria: The left atrium is severely dilated. There is severe biatrial enlargement. The right atrium is severely dilated. There is no Doppler evidence for an interatrial shunt. Mitral Valve: There is mild mitral annular calcification. The mitral valve is normal in structure and function. There is mild mitral regurgitation. Aortic Valve: The aortic valve is trileaflet. The aortic valve opens well. There is no aortic valve stenosis. There is trace aortic regurgitation. Tricuspid Valve: The tricuspid valve leaflets are thin and pliable. There is mild to moderate tricuspid regurgitation. The right ventricular systolic pressure is estimated to be at least 34 mmHg based on an estimated right atrial pressure of 8 mm Hg. Pulmonic Valve: The pulmonic valve is not well visualized. There is no pulmonic valvular regurgitation. Great Vessels: The aortic root is normal size. The ascending aorta is moderately enlarged. The IVC is dilated (diameter is greater than 2.1 cm) yet it collapses greater than 50% with a sniff. This suggests a right atrial pressure of 8 mm Hg. Pericardium/ Pleura There is no pericardial effusion. There is no pleural effusion. MMode/2D Measurements & Calculations LVIDd: 4.1 cm LVOT diam: 2.4 cm LVIDs: 3.1 cm Ao root diam: 3.6 cm FS: 23.4 % asc Aorta Diam: 4.6 cm IVSd: 1.2 cm Ao Arch Diam (Prox Trans): 3.6 cm LVPWd: 1.3 cm LV buchanan. diameter/BSA (cm/m^2): 1.9 LV sys. diameter/BSA (cm/m^2): 1.4 LA A2 area: 42.2 cm2 RA long axis: 10.0 cm LA A4 area: 48.3 cm2 RA area: 59.9 cm2 LA length (vol): 9.6 cm RA vol: 304.2 ml LA vol: 180.4 ml RA : 139.6 ml/m2 LA vol index: 82.8 ml/m2 IVC diam: 2.2 cm RVD1 (basal): 4.1 cm RVD2 (mid): 3.4 cm TAPSE: 1.5 cm Doppler Measurements & Calculations Ao V2 max: 101.6 cm/sec LVOT Max Tony: 57.5 cm/sec Ao V2 mean: 74.5 cm/sec LV V1 max P.3 mmHg Ao max P.1 mmHg LV V1 VTI: 11.1 cm Ao mean P.4 mmHg SILVINO(I,D): 2.6 cm2 Ao V2 VTI: 18.7 cm SILVINO(V,D): 2.5 cm2 sev ratio: 0.59 SILVINO indexed to BSA (cm^2/m^2): 1.2 MV E max tony: 67.7 cm/sec TR max tony: 255.6 cm/sec MV A max tony: 1.6 cm/sec TR max P.1 mmHg MV E/A: 43.5 PA pr(Accel): 31.0 mmHg Med Peak E' Tony: 9.5 cm/sec E/E' med: 7.1 Lat Peak E' Tony: 11.4 cm/sec E/E' lat: 5.9 E/e' average: 6.5 MV dec time: 0.20 sec SV(LVOT): 48.2 ml Reading Physician:03:23 PM
== END ==
PROVIDERS: Family Provider Internal Medicine; PCP Internal Medicine; Referring Provider Nurse Practitioner Acute Care; Visit Provider Nurse Practitioner Acute Care
DX: I77.89 Other specified disorders of arteries and arterioles (principal); I47.2 Ventricular tachycardia; I08.1 Rheumatic disorders of both mitral and tricuspid valves; I50.9 Heart failure, unspecified
CPT/HCPCS: 93306

== ENCOUNTER → 2022-08-20 11:24 | Outpatient (CLI) | payer MEDICARE, SELFPAY ==
[2022-08-20 12:36] LABS: Add Manual Diff / Slide Review NO; Basophils Absolute Auto 0 /uL (0-100); Basophils Percent Auto 0.9 % (0-2); Eosinophils Absolute Auto 200 /uL (0-450); Eosinophils Percent Auto 3.3 % (2-4); Hematocrit 40.2 % (41-53); Hemoglobin 13.4 g/dL (13.5-17.5); Lymphocytes Absolute Auto 1100 /uL (1100-4500); Lymphocytes Percent Auto 21.1 % (25-40); Mean Corpuscular HGB Conc 33.4 % (30-36); Mean Corpuscular Hemoglobin 32.6 PG (26-34); Mean Corpuscular Volume 97.7 fL (80-100); Monocytes Absolute Auto 500 /uL (0-900); Monocytes Percent Auto 8.8 % (3-14); Neutrophils Absolute Auto 3400 /uL (1500-7000); Neutrophils Percent Auto 65.9 % (50-75); Platelet Count 180 X10^3/uL (150-400); Red Blood Cell Count 4.11 X10^6/uL (4.5-5.9); Red Cell Distribution Width 14.6 % (11.6-14.8); White Blood Cell Count 5.2 X10^3/uL (4.5-11.0)
[2022-08-20 12:41] LABS: INR 3.4 (0.9-1.3); Prothrombin Time 39.8 SECONDS (10.1-12.7)
[2022-08-20 12:59] LABS: Alanine Aminotransferase 28 IU/L (<50); Albumin 3.9 g/dL (3.5-5.0); Albumin Globulin Ratio 1.4 (1.0-2.8); Alkaline Phosphatase 80 U/L (38-126); Aspartate Aminotransferase 34 IU/L (17-59); BUN Creatinine Ratio 24.3 (6-22); Bilirubin Total 1.4 mg/dL (0.2-1.3); Blood Urea Nitrogen 25 mg/dL (9-20); Carbon Dioxide 32 mmol/L (22-32); Chloride 101 mmol/L (98-107); Estimated Glomerular Filt Rate > 60 mL/min (>60); Globulin 2.8 g/dL (1.7-4.1); Glucose 99 mg/dL (80-110); HEMOLYSIS < 15 (0-50); Potassium 3.9 mmol/L (3.4-5.1); Sodium 140 mmol/L (137-145); Total Protein 6.7 g/dL (6.3-8.2)
[2022-08-20 13:28] LABS: Free T4, Direct Thyroxine 1.62 ng/dL (0.78-2.19); T4 Total Thyroxine 6.77 ug/dL (5.5-11.0)
[2022-08-20 13:43] LABS: Thyroid Stimulating Hormone 2.01 uIU/mL (0.47-4.68)
[2022-08-21 23:03] LABS: Deamidated Gliadin Ab IgA 4 units (0-19); Deamidated Gliadin Ab IgG 2 units (0-19); Immunoglobulin A,Qn 241 mg/dL (61-437); t-Transglutaminase IgA <2 U/mL (0-3)
== END ==
PROVIDERS: Family Provider Internal Medicine; PCP Internal Medicine; Referring Provider Internal Medicine Gastroenterology; Visit Provider Internal Medicine Gastroenterology
DX: R15.9 Full incontinence of feces (principal); R10.84 Generalized abdominal pain; I10 Essential (primary) hypertension
CPT/HCPCS: 36415; 80053; 82784; 83516; 84436; 84439; 84443; 85025; 85610

== ENCOUNTER → 2022-08-23 14:01 | Outpatient (CLI) | payer MEDICARE, SELFPAY ==
[2022-08-23 16:06] LABS: Collection Time Urine 24 Hours; Creatinine 24 Hour Urine 1119 mg/day (1000-2000); Creatinine Urine Random 86.1 mg/dL; Total Volume Urine 1300 mL
== END ==
PROVIDERS: Family Provider Internal Medicine; PCP Internal Medicine; Referring Provider Internal Medicine Gastroenterology; Visit Provider Internal Medicine Gastroenterology
DX: R15.9 Full incontinence of feces (principal); R10.84 Generalized abdominal pain
CPT/HCPCS: 82570; 82705; 87045; 87177; 87205; 87899

== ENCOUNTER → 2023-02-28 10:42 | Outpatient (CLI) | payer MEDICARE, SELFPAY ==
--- NOTE | 2023-02-28 10:44 | DI.US.S_ITS ---
PROCEDURE: US ABDOMEN LIMITED INDICATIONS: VENTRAL HERNIA TECHNIQUE: Real-time focused scanning was performed of the inguinal region, with image documentation. COMPARISON: Merged With [facility], CT, CT ABDOMEN PELVIS WITH CONTRAST, 08/24/2022, 17:10. FINDINGS: A ventral hernia defect is visualized superior to the umbilicus which measures 2.1 cm at the neck. This appears non reducible and contains both fat and peristalsing bowel. IMPRESSION: Bowel containing paraumbilical ventral hernia. Dictated by: María Saucedo M.D. on 02/28/2023 at 12:03 Approved by: María Saucedo M.D. on 02/28/2023 at 12:04
== END ==
PROVIDERS: Family Provider Internal Medicine; PCP Internal Medicine; Referring Provider Surgery; Visit Provider Surgery
DX: K43.9 Ventral hernia without obstruction or gangrene (principal)
CPT/HCPCS: 76705

== ENCOUNTER 2023-03-23 10:22 | Day surgery (SDC) | payer MEDICARE, SELFPAY ==
[2023-03-18 12:51] VITALS: BMI 28.5
[2023-03-23] VITALS (14 sets, daily range): BP systolic 99–119; BP diastolic 66–86; PULSE 66–85; RESP 11–16; TEMP 35.8–36.7; O2SAT 91–98; BMI 28.5
[2023-03-23] MEDS: LACTATED RINGERS 1,000 ML 100 ML IV (10:54)
--- NOTE | 2023-03-23 11:03 | PM.PREOP ---
Pre-operative Note Interval Note History & Physical reviewed/Exam performed by Physician: Yes Changes to H&P: No
[2023-03-23] MEDS: CEFAZOLIN 2 GM/100 ML PREMIX 100 ML IV (11:32)
--- NOTE | 2023-03-23 11:41 | SUR.OPER ---
Supine on padded OR bed, head on pillow, arms secured on padded arm boards at <90 degrees abduction, legs uncrossed, safety belt at thigh, tape over blanket over lower legs.
[2023-03-23] MEDS: BUPIVACAINE 0.25% (PF) VIAL 30 ML INJ (11:57)
--- NOTE | 2023-03-23 12:16 | P.OP_ITS ---
Operative Date/Time/Diagnoses Date of procedure: 03/23/23 Time of procedure: 12:17 Pre-op diagnosis: Ventral hernia 8cm Post-op diagnosis: same Procedure & Clinicians Procedure: Open ventral hernia repair with mesh Same procedure as scheduled: Yes Indications: 83-year-old man with a symptomatic bowel containing ventral hernia here open elective repair. Surgeon: Yaya Leslie Blood Bank Laboratory Professional: Gopal Willis Click Yes if Unassisted: Yes Anesthesia Type: General Operative Notes Findings: 8 cm [place] cheese fascial defect Specimen(s): none sent Estimated Blood Loss (mL): 20 Procedure in detail: Patient was brought to the operating room placed supine on the table. Bilateral lower extremity compression devices were applied. General anesthesia was induced he was intubated with an endotracheal tube. Received 2 g of Ancef prior to skin incision. He was prepped and draped in sterile fashion time-out performed. A midline incision was made the subcutaneous tissue was divided and the fascia was exposed. Was a [place]-cheese defect involving midline. Midline was open in the abdomen was entered atraumatically. Fascial defect was approximately 8 cm its distal point just below the umbilicus. The hernia sac was resected. A 12 cm Bard Ventralex patch was placed into the defect. The anti-adhesive surface was placed towards the bowel. All 4 corners were tacked with Ethibond suture. A small stab incision was made all 4 quadrants and using the Ricardo-Sudheer device the tagged sutures were brought through the abdominal wall and secured. The mesh covered the defect well in all directions with several cm of overlap. The mesh was then tacked to the posterior abdominal wall and locations using interrupted Ethibond suture. Midline fascia was then closed with a running Ethibond suture. Subcutaneous tissue was reapproximated Vicryl skin closed with Monocryl followed by application of Dermabond. He tolerated procedure well and was extubated and transferred to recovery in stable condition Complications: none Post-operative Condition: stable Disposition: same day surgery
[2023-03-23] MEDS: HYDROMORPHONE 2 MG INJ IV ×2 (13:06→13:20)
[2023-03-23] MEDS: hydrOXYzine 50 MG/ML INJ 25 MG IM (13:08)
[2023-03-23] MEDS: OXYCODONE IR 5 MG TABLET PO (13:21)
== END 2023-03-23 15:45 | disposition home or self-care (01) ==
PROVIDERS: Family Provider Internal Medicine; PCP Internal Medicine; Referring Provider Surgery; Visit Provider Surgery
PROC: (CPT 49594; principal; 2023-03-23 11:15)
DX: K43.6 Other and unspecified ventral hernia with obstruction, without gangrene (principal)
CPT/HCPCS: 49594; 82962; 85610; J0690; J1170; J3010; J3410

== ENCOUNTER → 2023-04-12 07:07 | Outpatient (CLI) | payer MEDICARE, SELFPAY ==
[2023-04-12 07:53] LABS: Add Manual Diff / Slide Review NO; Basophils Absolute Auto 100 /uL (0-100); Basophils Percent Auto 0.8 % (0-2); Eosinophils Absolute Auto 200 /uL (0-450); Eosinophils Percent Auto 3.5 % (2-4); Hematocrit 40.1 % (41-53); Hemoglobin 13.5 g/dL (13.5-17.5); Lymphocytes Absolute Auto 1500 /uL (1100-4500); Lymphocytes Percent Auto 23.2 % (25-40); Mean Corpuscular HGB Conc 33.8 % (30-36); Mean Corpuscular Hemoglobin 32.7 PG (26-34); Mean Corpuscular Volume 96.8 fL (80-100); Monocytes Absolute Auto 700 /uL (0-900); Monocytes Percent Auto 10.3 % (3-14); Neutrophils Absolute Auto 4000 /uL (1500-7000); Neutrophils Percent Auto 62.2 % (50-75); Platelet Count 228 X10^3/uL (150-400); Red Blood Cell Count 4.14 X10^6/uL (4.5-5.9); Red Cell Distribution Width 14.7 % (11.6-14.8); White Blood Cell Count 6.4 X10^3/uL (4.5-11.0)
[2023-04-12 08:11] LABS: Alanine Aminotransferase 33 IU/L (<50); Albumin 3.7 g/dL (3.5-5.0); Albumin Globulin Ratio 1.4 (1.0-2.8); Alkaline Phosphatase 115 U/L (38-126); Aspartate Aminotransferase 36 IU/L (17-59); BUN Creatinine Ratio 23.9 (6-22); Bilirubin Total 1.7 mg/dL (0.2-1.3); Blood Urea Nitrogen 22 mg/dL (9-20); Calcium 8.9 mg/dL (8.4-10.2); Carbon Dioxide 31 mmol/L (22-32); Chloride 100 mmol/L (98-107); Estimated Glomerular Filt Rate > 60 mL/min (>60); Globulin 2.7 g/dL (1.7-4.1); Glucose 96 mg/dL (80-110); HEMOLYSIS < 15 (0-50); Potassium 3.6 mmol/L (3.4-5.1); Sodium 136 mmol/L (137-145); Total Protein 6.4 g/dL (6.3-8.2)
[2023-04-12 08:28] LABS: Free T4, Direct Thyroxine 1.85 ng/dL (0.78-2.19)
[2023-04-12 08:42] LABS: Thyroid Stimulating Hormone 1.96 uIU/mL (0.47-4.68)
== END ==
PROVIDERS: Family Provider Internal Medicine; PCP Internal Medicine; Referring Provider Internal Medicine Cardiovascular Disease; Visit Provider Internal Medicine Cardiovascular Disease
DX: I48.21 Permanent atrial fibrillation (principal)
CPT/HCPCS: 36415; 80053; 84439; 84443; 85025

== ENCOUNTER → 2023-05-05 12:17 | Outpatient (CLI) | payer MEDICARE, SELFPAY ==
--- NOTE | 2023-05-05 12:19 | DI.ECHO.S_ITS ---
[facility]---------+ [facility] +---------+ : : [address] : [address] : : : : [id number] : : : : Phone: [phone] : : [phone] +---------+ Echocardiogram Report + + :Name: AZIZA FARMER Study Date: 05/05/2023 Height: 71 in : :[facility] ReadingLocation: Weight: 200 lb : : Gender: Male BSA: 2.1 m2 : :: 1940 Age: 83 yrs BP: 115/85 mmHg: :Reason For Study: Heart Failure : :Ordering Physician: SUSI : :SHAHRAM Performed By: Olivia Rivera : :Referring: SHAHRAM GOLDMAN : + + Interpretation Summary The ejection fraction is estimated to be 35-40%. Left ventricular function has slightly worsened compared to the previous exam. There is apical hypokinesis. The right ventricle is moderately dilated. Right ventricular systolic function is moderately reduced. There is severe biatrial enlargement. There is no Doppler evidence for an interatrial shunt. There is mild mitral regurgitation. The aortic valve is moderately calcified. The right ventricular systolic pressure is estimated to be at least 35 mmHg based on an estimated right atrial pressure of 15 mm Hg. There is moderate tricuspid regurgitation. The ascending aorta is moderately enlarged. Procedure: A two-dimensional transthoracic echocardiogram with color flow and Doppler was performed. The study quality was technically adequate. Comparison is made with the echocardiogram of 05/17/2022. The patient was in atrial fibrillation with heart rates between 80 bpm during the exam. Left Ventricle: The left ventricular cavity is small. The ejection fraction is estimated to be 35-40%. Left ventricular function has slightly worsened compared to the previous exam. There is apical hypokinesis. Diastolic function could not be accurately assessed due to atrial fibrillation. Right Ventricle: The right ventricle is moderately dilated. Right ventricular systolic function is moderately reduced. Atria: The left atrium is severely dilated. There is severe biatrial enlargement. The right atrium is severely dilated. There is no Doppler evidence for an interatrial shunt. Mitral Valve: The mitral valve leaflets appear borderline thickened, but open well. There is no mitral valve stenosis. There is mild mitral regurgitation. Aortic Valve: The aortic valve is trileaflet. The aortic valve is moderately calcified. There is no aortic valve stenosis. There is trace aortic regurgitation. Tricuspid Valve: The tricuspid valve is normal. There is no tricuspid stenosis. There is moderate tricuspid regurgitation. The right ventricular systolic pressure is estimated to be at least 35 mmHg based on an estimated right atrial pressure of 15 mm Hg. Pulmonic Valve: The pulmonic valve leaflets are thin and pliable; valve motion is normal. There is no pulmonic valvular stenosis. There is trace pulmonic regurgitation. Great Vessels: The aortic root is normal size. The ascending aorta is moderately enlarged. The pulmonary artery is normal size. The IVC is dilated (diameter is greater than 2.1 cm) and it collapses less than 50% with a sniff. This suggests a high right atrial pressure of 15 mm Hg. Pericardium/ Pleura There is no pericardial effusion. MMode/2D Measurements & Calculations LVIDd: 4.2 cm LVOT diam: 2.0 cm LVIDs: 4.4 cm Ao root diam: 3.6 cm FS: -4.8 % asc Aorta Diam: 4.7 cm IVSd: 1.2 cm LVPWd: 1.7 cm LV buchanan. diameter/BSA (cm/m^2): 2.0 LV sys. diameter/BSA (cm/m^2): 2.1 LA A4 area: 35.7 cm2 RA long axis: 10.8 cm RA area: 58.3 cm2 RA vol: 267.2 ml RA : 126.7 ml/m2 IVC diam: 2.5 cm RVD1 (basal): 5.2 cm LVLs ap4: 5.2 cm LVLd ap2: 6.0 cm TAPSE_phl: 0.87 cm LVLs ap2: 5.6 cm Doppler Measurements & Calculations Ao V2 max: 96.5 cm/sec LVOT Max Tony: 58.5 cm/sec Ao V2 mean: 65.6 cm/sec LV V1 max P.4 mmHg Ao max P.0 mmHg LV V1 VTI: 10.1 cm Ao mean P.0 mmHg SILVINO(I,D): 1.8 cm2 Ao V2 VTI: 17.5 cm SILVINO(V,D): 1.9 cm2 sev ratio: 0.58 SILVINO indexed to BSA (cm^2/m^2): 0.86 TR max tony: 237.0 cm/sec SV(LVOT): 31.7 ml TR max P.9 mmHg PA V2 max: 63.5 cm/sec PA V2 mean: 43.0 cm/sec PA mean P.0 mmHg PA pr(Accel): 29.0 mmHg AV VR_phl: 0.61 SILVINO(VTI)/BSA_phl: 0.86 Reading Physician:05:01 PM
== END ==
PROVIDERS: Family Provider Internal Medicine; PCP Internal Medicine; Referring Provider Orthopaedic Surgery; Visit Provider Orthopaedic Surgery
DX: I08.1 Rheumatic disorders of both mitral and tricuspid valves (principal); I77.89 Other specified disorders of arteries and arterioles; I47.20 Ventricular tachycardia, unspecified; I50.9 Heart failure, unspecified
CPT/HCPCS: 93306

== ENCOUNTER → 2023-05-20 11:37 | Outpatient (CLI) | payer MEDICARE, SELFPAY ==
[2023-05-20 12:26] LABS: BUN Creatinine Ratio 25.8 (6-22); Blood Urea Nitrogen 25 mg/dL (9-20); Estimated Glomerular Filt Rate > 60 mL/min (>60)
== END ==
PROVIDERS: Family Provider Internal Medicine; PCP Internal Medicine; Referring Provider Surgery; Visit Provider Surgery
DX: R19.00 Intra-abdominal and pelvic swelling, mass and lump, unspecified site (principal)
CPT/HCPCS: 36415; 82565; 84520

== ENCOUNTER → 2023-05-24 12:27 | Outpatient (CLI) | payer MEDICARE, SELFPAY ==
--- NOTE | 2023-05-24 12:28 | DI.CT.S_ITS ---
PROCEDURE: CT ABDOMEN PELVIS W CON INDICATIONS: Recurrent hernia versus seroma TECHNIQUE: After the administration of oral and intravenous contrast, axial sections were acquired from the lung bases to the pubic symphysis. Coronal and sagittal reformats were performed. For radiation dose reduction, the following was used: automated exposure control, adjustment of mA and/or kV according to patient size. COMPARISON:[facility], CT, CT ABDOMEN PELVIS WITH CONTRAST, 08/24/2022, 17:10. [facility], MR, MR ABDOMEN PELVIS WITH/WITHOUT CONTRAST, 10/19/2022, 16:38. FINDINGS: Image quality: Good Lower chest: Scattered scarring/atelectasis. Cardiomegaly and biatrial enlargement partially seen. Solid organs: Nodular liver contour. Cholelithiasis. No pathologic dilation of the biliary tree or pancreatic duct. No splenomegaly. No adrenal nodules. No hydronephrosis. Vessels and lymph nodes: No abdominal aortic aneurysm. The main portal vein is not opacified on this study. No pathologic lymph nodes by size criteria. Bowel and peritoneum: No intra-abdominal abscess or pathologic free fluid. Numerous colonic diverticula are seen. Body wall: Postsurgical changes in the anterior body wall. Bowel and fat containing left periumbilical hernia with neck measuring about 2.3 centimeters is seen. No drainable fluid collection. There is also a tiny fat containing umbilical hernia with underlying mesh. Pelvis: Prostate radiation seeds. Bladder is unremarkable. Bones: No acute or suspicious osseous finding. IMPRESSION: No drainable fluid collection is identified. Postsurgical changes in the anterior body wall. A fat and bowel containing hernia is seen left of the umbilicus. A small umbilical fat containing hernia is also present with underlying mesh. Irregular liver contour suspicious for cirrhosis and chronic liver disease. Consider future HCC screening if clinically indicated. Cardiomegaly and biatrial enlargement. Other findings as above. Dictated by: Jourdan Webber M.D. on 05/24/2023 at 16:25 Approved by: Jourdan Webber M.D. on 05/24/2023 at 16:31
== END ==
PROVIDERS: Family Provider Internal Medicine; PCP Internal Medicine; Referring Provider Surgery; Visit Provider Surgery
DX: R22.2 Localized swelling, mass and lump, trunk (principal); I51.7 Cardiomegaly; K80.20 Calculus of gallbladder without cholecystitis without obstruction; K57.90 Diverticulosis of intestine, part unspecified, without perforation or abscess without bleeding; K42.9 Umbilical hernia without obstruction or gangrene
CPT/HCPCS: 74177; Q9967

== ENCOUNTER → 2023-09-01 08:11 | Outpatient (CLI) | payer MEDICARE, SELFPAY ==
--- NOTE | 2023-09-01 | DI.NM.S_ITS ---
PROCEDURE: NM CATIA PERF SPECT R&S PHARM Rest and pharmacological stress myocardial perfusion SPECT with gated imaging and ejection fraction RADIOPHARMACEUTICAL: 11.9 mCi Tc-99m tetrafosmin IV at rest and 25.9 mCi Tc-99m tetrafosmin IV at peak effect of pharmacological stress. [id number] was performed. INDICATIONS: Cardiomyopathy, Permanent atrial fibrillation TECHNIQUE: Radiopharmaceutical was injected at peak stress test, and also at rest. SPECT images were obtained. SPECT myocardial perfusion images were displayed in short axis, horizontal long axis, and vertical long axis views. Gated images were reviewed using ContentDJ software. COMPARISON: None. CARDIAC STRESS: A pharmacologic stress test was performed under the supervision of an attending staff, using an infusion of lexiscan 0.4mg IV X1. Hemodynamic data: There is normal blood pressure and heart rate response to pharmacologic stress. Symptoms: The patient denied anginal chest pain. Aminophylline: none EKG: Resting ECG showed atrial fibrillation and PVCs. No diagnostic changes of ischemia with lexiscan. FINDINGS: Raw data: There is good myocardial uptake of radiotracer. No significant motion artifacts. Left ventricle function: Gated images demonstrate normal left ventricular wall thickening. No segmental wall motion abnormalities. No transient ischemic dilation; TID is 1.17 (normal less than 1.3). Left ventricle resting end diastolic volume is 85 mL. Left ventricle stress ejection fraction is 67%; normal range is above 45%. Myocardial perfusion: There is normal distribution of activity in the right and left ventricular myocardium. No fixed or reversible perfusion defects. IMPRESSION: Low risk, normal pharm nuclear stress test with normal LV function (EF post stress 67%). Dictated by: Ross Higginbotham MD on 09/02/2023 at 13:35 Approved by: Ross Higginbotham MD on 09/02/2023 at 13:36
== END ==
PROVIDERS: Family Provider Internal Medicine; PCP Internal Medicine; Referring Provider Physician Assistant; Visit Provider Physician Assistant
DX: I48.21 Permanent atrial fibrillation (principal); I42.9 Cardiomyopathy, unspecified
CPT/HCPCS: 78452; 93017; A9502; J2785

== ENCOUNTER → 2023-10-13 11:20 | Outpatient (CLI) | payer MEDICARE, SELFPAY ==
--- NOTE | 2023-10-13 | DI.CT.S_ITS ---
PROCEDURE: CT ABDOMEN PELVIS W CON INDICATIONS: Incisional hernia without obstruction or gangrene TECHNIQUE: After the administration of intravenous contrast, axial sections acquired from the lung bases to the pubic symphysis. Coronal and sagittal reformats were performed. For radiation dose reduction, the following was used: automated exposure control, adjustment of mA and/or kV according to patient size. COMPARISON: [facility], CT, CT ABDOMEN PELVIS W CON, 05/24/2023, 14:08. FINDINGS: Image quality: Diagnostic. Lower Chest: Bibasilar atelectasis and scarring as before. Moderate cardiomegaly. Persistent small pericardial effusion. ABDOMEN: Liver: Stable appearance of nodular liver contour. Gallbladder: Cholelithiasis with findings suggestive mild hyperemia of the gallbladder wall and pericholecystic stranding. Biliary ducts: No biliary dilation. Pancreas: Homogeneous enhancement without focal lesions or pancreatic ductal dilatation. No peripancreatic inflammation or organized fluid collections. Spleen: Size is within normal limits. Adrenal Glands: No adrenal nodules. Kidneys and Ureters: Kidneys are symmetric in size and enhancement, and there is no obstructive uropathy. No perinephric inflammatory changes. Ureters are normal in course and caliber. Stomach and Bowel: Stomach and small bowel loops appear unremarkable. Colonic diverticulosis without acute diverticulitis. Peritoneum: No abnormal intraperitoneal fluid. No free air. Ventral Wall: Stable postoperative changes of the anterior abdominal wall. Bowel and fat containing periumbilical hernia is again noted and not significantly changed. No evidence for inflammatory changes of the herniated bowel or evidence for obstruction or inflammation proximally. Stable appearance of small fat containing umbilical hernia without underlying mesh. No acute inflammatory changes. Abdominal Nodes: No retroperitoneal or mesenteric adenopathy by size criteria. Vessels: Aorta and inferior vena cava are normal in size. Extensive atherosclerosis. PELVIS: Pelvic Organs: Radiation seeds noted in the prostate fossa. Bladder: Unremarkable. Pelvic Nodes: No enlarged lymph nodes. Miscellaneous: No inguinal hernias are seen. Bones: Diffuse osteopenia. New age-indeterminate superior endplate compression fracture of L3 without significant vertebral body height loss. No retropulsion of fracture fragments of the superior endplate. IMPRESSION: 1. Stable postsurgical changes of the anterior abdominal wall with stable appearance of bowel and fat containing periumbilical hernia without evidence for acute inflammatory changes or obstruction proximally. 2. Cholelithiasis with suggestion of wall hyperemia and pericholecystic stranding. Recommend clinical correlation for possible cholecystitis. Findings may be secondary to liver cirrhosis/chronic liver disease. 3. Moderate cardiomegaly with persistent small pericardial effusion. 4. Colonic diverticulosis without acute diverticulitis. 5. Diffuse osteopenia with interval development of age-indeterminate superior endplate compression fracture of L3 without significant vertebral body height loss. No evidence for retropulsion of fracture fragment into the spinal canal. Other chronic findings as above. Dictated by: Víctor Angeles M.D. on 10/13/2023 at 17:33 Approved by: Víctor Angeles M.D. on 10/13/2023 at 17:45
[2023-10-13 11:53] LABS: Estimated Glomerular Filt Rate > 60 mL/min (>60)
== END ==
PROVIDERS: Radiology Diagnostic Radiology; Family Provider Internal Medicine; PCP Internal Medicine; Referring Provider Surgery; Visit Provider Surgery
DX: K43.2 Incisional hernia without obstruction or gangrene (principal); K42.9 Umbilical hernia without obstruction or gangrene; K80.20 Calculus of gallbladder without cholecystitis without obstruction; I51.7 Cardiomegaly; K57.90 Diverticulosis of intestine, part unspecified, without perforation or abscess without bleeding; M48.56XA Collapsed vertebra, not elsewhere classified, lumbar region, initial encounter for fracture; Z79.01 Long term (current) use of anticoagulants
CPT/HCPCS: 36415; 74177; 82565; Q9967

== ENCOUNTER → 2024-01-13 15:02 | Outpatient (CLI) | payer MEDICARE, SELFPAY ==
[2024-01-13 16:38] LABS: Alanine Aminotransferase 32 IU/L (<50); Albumin 3.6 g/dL (3.5-5.0); Albumin Globulin Ratio 1.3 (1.0-2.8); Alkaline Phosphatase 137 U/L (38-126); Aspartate Aminotransferase 47 IU/L (17-59); BUN Creatinine Ratio 25.2 (6-22); Bilirubin Total 1.8 mg/dL (0.2-1.3); Blood Urea Nitrogen 32 mg/dL (9-20); Calcium 9.1 mg/dL (8.4-10.2); Carbon Dioxide 28 mmol/L (22-32); Chloride 105 mmol/L (98-107); Estimated Glomerular Filt Rate 55 mL/min (>60); Globulin 2.8 g/dL (1.7-4.1); Glucose 94 mg/dL (80-110); HEMOLYSIS < 15 (0-50); Potassium 4.1 mmol/L (3.4-5.1); Sodium 137 mmol/L (137-145); Total Protein 6.4 g/dL (6.3-8.2)
== END ==
PROVIDERS: Family Provider Internal Medicine; PCP Internal Medicine; Referring Provider Nurse Practitioner Acute Care; Visit Provider Nurse Practitioner Acute Care
DX: I42.0 Dilated cardiomyopathy (principal)
CPT/HCPCS: 36415; 80053

== ENCOUNTER → 2024-02-20 11:24 | Outpatient (CLI) | payer MEDICARE, SELFPAY ==
[2024-02-20 12:33] LABS: HEMOLYSIS 17 (0-50); NT-proBNP (BNP-Adult 18+) 5830 pg/mL (<450)
[2024-02-20 12:34] LABS: BUN Creatinine Ratio 32.7 (6-22); Blood Urea Nitrogen 32 mg/dL (9-20); Calcium 9.4 mg/dL (8.4-10.2); Carbon Dioxide 36 mmol/L (22-32); Chloride 98 mmol/L (98-107); Estimated Glomerular Filt Rate > 60 mL/min (>60); Glucose 135 mg/dL (80-110); Potassium 3.3 mmol/L (3.4-5.1); Sodium 138 mmol/L (137-145)
== END ==
PROVIDERS: Family Provider Internal Medicine; PCP Internal Medicine; Visit Provider Nurse Practitioner Family
DX: I48.0 Paroxysmal atrial fibrillation (principal)
CPT/HCPCS: 36415; 80048; 83880

== ENCOUNTER → 2024-02-25 12:30 | Outpatient (CLI) | payer MEDICARE, SELFPAY ==
[2024-02-25 13:03] LABS: BUN Creatinine Ratio 32.2 (6-22); Blood Urea Nitrogen 39 mg/dL (9-20); Calcium 9.4 mg/dL (8.4-10.2); Carbon Dioxide 33 mmol/L (22-32); Chloride 100 mmol/L (98-107); Estimated Glomerular Filt Rate 59 mL/min (>60); Glucose 103 mg/dL (80-110); HEMOLYSIS < 15 (0-50); Potassium 4.3 mmol/L (3.4-5.1); Sodium 139 mmol/L (137-145)
== END ==
PROVIDERS: Family Provider Internal Medicine; PCP Internal Medicine; Referring Provider Nurse Practitioner Family; Visit Provider Nurse Practitioner Family
DX: I42.0 Dilated cardiomyopathy (principal)
CPT/HCPCS: 36415; 80048

== ENCOUNTER → 2024-03-05 14:18 | Outpatient (CLI) | payer MEDICARE, SELFPAY ==
[2024-03-05 16:07] LABS: BUN Creatinine Ratio 32.7 (6-22); Blood Urea Nitrogen 35 mg/dL (9-20); Calcium 9.1 mg/dL (8.4-10.2); Carbon Dioxide 32 mmol/L (22-32); Chloride 103 mmol/L (98-107); Estimated Glomerular Filt Rate > 60 mL/min (>60); Glucose 107 mg/dL (80-110); HEMOLYSIS < 15 (0-50); Potassium 3.8 mmol/L (3.4-5.1); Sodium 140 mmol/L (137-145)
== END ==
PROVIDERS: Family Provider Internal Medicine; PCP Internal Medicine; Referring Provider Nurse Practitioner Acute Care; Visit Provider Nurse Practitioner Acute Care
DX: I42.0 Dilated cardiomyopathy (principal)
CPT/HCPCS: 36415; 80048

== ENCOUNTER → 2024-03-06 13:54 | Outpatient (CLI) | payer MEDICARE, SELFPAY ==
--- NOTE | 2024-03-06 13:56 | DI.ECHO.S_ITS ---
[place] [facility] : : [id number] : : [place] : : [id number] : : Phone: [phone] Echocardiogram Report + + :Name: AZIZA FARMER Study Date: 03/06/2024 Height: 71 in : :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 The ejection fraction is estimated to be 35-40%. There is apical hypokinesis. The interventricular septum is flattened, consistent with a right ventricular volume overload condition. Diastolic function could not be accurately assessed due to atrial fibrillation. The right ventricle is severely dilated. Right ventricular systolic function is moderately reduced. There is severe biatrial enlargement. There is mild to moderate mitral regurgitation. There is mild aortic regurgitation. There is severe tricuspid regurgitation. Pulmonary artery systolic pressure is underestimated due to the severity of TR. The ascending aorta is moderately enlarged, 4.6 cm. Compared to the prior study dated 05/05/2023, the right ventricle is more dilated and there is an increase in the tricuspid regurgitation. Procedure: A two-dimensional transthoracic echocardiogram with color flow and Doppler was performed. The study quality was technically adequate. Comparison is made with the echocardiogram of 05/05/2023. The patient was in atrial fibrillation with heart rates between 70-95 bpm during the exam. Left Ventricle: The left ventricular cavity is small. The estimated left ventricular end diastolic volume is 58 ml. There is normal left ventricular wall thickness. The ejection fraction is estimated to be 35-40%. The interventricular septum is flattened, consistent with a right ventricular volume overload condition. There is apical hypokinesis. Diastolic function could not be accurately assessed due to atrial fibrillation. Right Ventricle: The right ventricle is severely dilated. Right ventricular systolic function is moderately reduced. Atria: There is severe biatrial enlargement. There is no Doppler evidence for an interatrial shunt. Mitral Valve: The mitral valve is normal. There is mild to moderate mitral regurgitation. Aortic Valve: The aortic valve is trileaflet. The aortic valve opens well. The aortic valve is mildly calcified. There is no aortic valve stenosis. There is mild aortic regurgitation. Tricuspid Valve: The tricuspid valve leaflets are thin and pliable. There is severe tricuspid regurgitation. Pulmonic Valve: The pulmonic valve is not well seen, but is grossly normal. There is mild pulmonic regurgitation. Great Vessels: The aortic root is mildly dilated. The ascending aorta is moderately enlarged. The IVC is dilated (diameter is greater than 2.1 cm) and it collapses less than 50% with a sniff. This suggests a high right atrial pressure of 15 mm Hg. Pericardium/ Pleura There is a small pericardial effusion noted. There is no pleural effusion. MMode/2D Measurements & Calculations LVIDd: 4.1 cm LVOT diam: 2.2 cm LVIDs: 2.8 cm Ao root diam: 4.2 cm FS: 33.0 % asc Aorta Diam: 4.6 cm IVSd: 1.1 cm Ao Arch Diam (Prox Trans): 3.0 cm LVPWd: 1.0 cm LV buchanan. diameter/BSA (cm/m^2): 2.0 LV sys. diameter/BSA (cm/m^2): 1.3 LA A2 area: 47.6 cm2 RA long axis: 10.4 cm LA A4 area: 50.7 cm2 RA area: 69.6 cm2 LA length (vol): 9.4 cm RA vol: 396.0 ml LA vol: 218.0 ml RA : 190.6 ml/m2 LA vol index: 104.9 ml/m2 IVC diam: 3.1 cm RVD1 (basal): 5.2 cm Doppler Measurements & Calculations Ao V2 max: 96.3 cm/sec LVOT Max Papito: 52.6 cm/sec Ao V2 mean: 77.5 cm/sec LV V1 max P.1 mmHg Ao max P.7 mmHg LV V1 VTI: 9.0 cm Ao mean P.5 mmHg SILVINO(I,D): 2.0 cm2 Ao V2 VTI: 17.7 cm SILVINO(V,D): 2.1 cm2 sev ratio: 0.51 SILVINO indexed to BSA (cm^2/m^2): 0.94 MV E max papito: 76.8 cm/sec TR max papito: 223.0 cm/sec MV A max papito: 0.70 cm/sec TR max P.9 mmHg MV E/A: 109.2 PA V2 max: 51.8 cm/sec Med Peak E' Papito: 8.1 cm/sec PA V2 mean: 37.1 cm/sec E/E' med: 9.5 PA mean P.62 mmHg Lat Peak E' Papito: 15.0 cm/sec PA pr(Accel): 44.7 mmHg E/E' lat: 5.1 E/e' average: 7.3 MV dec time: 0.14 sec SV(LVOT): 34.6 ml Reading Physician:09:18 PM
== END ==
PROVIDERS: Family Provider Internal Medicine; PCP Internal Medicine; Referring Provider Nurse Practitioner Acute Care; Visit Provider Nurse Practitioner Acute Care
DX: I42.0 Dilated cardiomyopathy (principal); I08.3 Combined rheumatic disorders of mitral, aortic and tricuspid valves; I77.810 Thoracic aortic ectasia; I77.89 Other specified disorders of arteries and arterioles; I31.39 Other pericardial effusion (noninflammatory)
CPT/HCPCS: 93306

== ENCOUNTER → 2024-03-28 12:17 | Outpatient (CLI) | payer MEDICARE, SELFPAY ==
[2024-03-28 14:52] LABS: Blood Urea Nitrogen 28 mg/dL (9-20); Carbon Dioxide 29 mmol/L (22-32); Chloride 104 mmol/L (98-107); Estimated Glomerular Filt Rate > 60 mL/min (>60); Glucose 109 mg/dL (80-110); HEMOLYSIS < 15 (0-50); Potassium 4.1 mmol/L (3.4-5.1); Sodium 139 mmol/L (137-145)
== END ==
PROVIDERS: Family Provider Internal Medicine; PCP Internal Medicine; Referring Provider Nurse Practitioner Acute Care; Visit Provider Nurse Practitioner Acute Care
DX: Z01.818 Encounter for other preprocedural examination (principal); Z51.89 Encounter for other specified aftercare; I34.0 Nonrheumatic mitral (valve) insufficiency
CPT/HCPCS: 36415; 80048

== ENCOUNTER → 2024-11-22 15:08 | Outpatient (CLI) | payer MEDICARE, SELFPAY ==
[2024-11-22 16:35] LABS: BUN Creatinine Ratio 26.1 (6-22); Blood Urea Nitrogen 31 mg/dL (9-20); Calcium 9.1 mg/dL (8.4-10.2); Carbon Dioxide 34 mmol/L (22-32); Chloride 96 mmol/L (98-107); Estimated Glomerular Filt Rate 59 mL/min (>60); Glucose 114 mg/dL (80-110); HEMOLYSIS < 15 (0-50); Potassium 3.4 mmol/L (3.4-5.1); Sodium 137 mmol/L (137-145)
== END ==
LOC: LAB 15:10
PROVIDERS: Family Provider Internal Medicine; PCP Internal Medicine; Referring Provider Internal Medicine; Visit Provider Internal Medicine
DX: I42.9 Cardiomyopathy, unspecified (principal)
CPT/HCPCS: 36415; 80048

== ENCOUNTER 2024-11-28 19:08 | Emergency (ER) | payer MEDICARE, SELFPAY ==
[2024-11-28] VITALS (11 sets, daily range): BP systolic 109–154; BP diastolic 65–86; PULSE 40–169; RESP 13–26; TEMP 36.3; O2SAT 95–98; BMI 26.7
--- NOTE | 2024-11-28 19:28 | EKG_ITS ---
[address] [address] Test Date: 2024-11-28 Pat Name: Wilfredo Lara Department: Room: Gender: Male [employer]: ERIK : 1940 Requested By: Order Number: [id number] Reading MD: Stan Rizo MD Measurements Intervals [place] Rate: 92 P: DE: QRS: 264 QRSD: 92 T: -43 QT: 412 QTc: 509 Interpretive Statements Undetermined rhythm, possible afib based on prior tracing Right superior axis deviation Incomplete right bundle branch block Possible Right ventricular hypertrophy Possible Inferior infarct , age undetermined Cannot rule out Anterior infarct , age undetermined Prolonged QT Electronically Signed On 11-29-2024 7:29:30 PST by Stan Rizo MD
--- NOTE | 2024-11-28 19:29 | DI.RAD.S_ITS ---
PROCEDURE: XR CHEST 1V INDICATIONS: chest pain TECHNIQUE: One view of the chest was acquired. COMPARISON: [facility], CR, XR CHEST 1V, 06/06/2020, 12:56. FINDINGS: Surgical changes and devices: None. Lungs and pleura: Right pneumothorax measuring 2.3 cm. No midline shift. Mediastinum: Mediastinal contours appear normal. Heart size is markedly enlarged. Bones and chest wall: No suspicious bony lesions. Overlying soft tissues appear unremarkable. IMPRESSION: Small right pneumothorax. The above findings were discussed with Dr. Michael Govea on 11/28/2024 at 7:54 p.m.. Dictated by: Cally Escalante M.D. on 11/28/2024 at 19:53 Approved by: Cally Escalante M.D. on 11/28/2024 at 19:56
[2024-11-28 19:58] LABS: Add Manual Diff / Slide Review NO; Basophils Absolute Auto 100 /uL (0-100); Basophils Percent Auto 0.8 % (0-2); Eosinophils Absolute Auto 100 /uL (0-450); Hematocrit 36.1 % (41-53); Hemoglobin 12.1 g/dL (13.5-17.5); Lymphocytes Absolute Auto 700 /uL (1100-4500); Lymphocytes Percent Auto 9.5 % (25-40); Mean Corpuscular HGB Conc 33.6 % (30-36); Mean Corpuscular Hemoglobin 33.3 PG (26-34); Mean Corpuscular Volume 99.3 fL (80-100); Monocytes Absolute Auto 700 /uL (0-900); Monocytes Percent Auto 10.1 % (3-14); Neutrophils Absolute Auto 5700 /uL (1500-7000); Neutrophils Percent Auto 78.6 % (50-75); Platelet Count 182 X10^3/uL (150-400); Red Blood Cell Count 3.64 X10^6/uL (4.5-5.9); Red Cell Distribution Width 15.4 % (11.6-14.8); White Blood Cell Count 7.3 X10^3/uL (4.5-11.0)
[2024-11-28 20:01] LABS: Prothrombin Time 33.5 SECONDS (9.4-12.5)
[2024-11-28 20:04] LABS: PTT Partial Thromboplastin Tim 50 SECONDS (25.1-36.5)
[2024-11-28 20:07] LABS: Alanine Aminotransferase 38 IU/L (<50); Albumin 3.9 g/dL (3.5-5.0); Albumin Globulin Ratio 1.3 (1.0-2.8); Alkaline Phosphatase 134 U/L (38-126); Aspartate Aminotransferase 60 IU/L (17-59); BUN Creatinine Ratio 28.9 (6-22); Bilirubin Total 2.6 mg/dL (0.2-1.3); Blood Urea Nitrogen 35 mg/dL (9-20); Carbon Dioxide 33 mmol/L (22-32); Chloride 99 mmol/L (98-107); Creatine Kinase 285 U/L (55-170); Estimated Glomerular Filt Rate 58 mL/min (>60); Globulin 2.9 g/dL (1.7-4.1); Glucose 116 mg/dL (80-110); HEMOLYSIS < 15 (0-50); Lipase 261 U/L (23-300); Magnesium 2.1 mg/dL (1.6-2.3); Potassium 3.3 mmol/L (3.4-5.1); Sodium 138 mmol/L (137-145); Total Protein 6.8 g/dL (6.3-8.2)
[2024-11-28 20:18] LABS: NT-proBNP (BNP-Adult 18+) 6400 pg/mL (<450)
[2024-11-28 20:20] LABS: Troponin I 0.139 ng/mL (0.01-0.034)
--- NOTE | 2024-11-28 20:27 | DI.CT.S_ITS ---
PROCEDURE: CT HEAD/BRAIN WO CON INDICATIONS: GLF yest, warfarin, ?syncope TECHNIQUE: Noncontrast 4.5 mm thick angled axial sections acquired from the foramen magnum to the vertex, with coronal and sagittal reformats. For radiation dose reduction, the following was used: automated exposure control, adjustment of mA and/or kV according to patient size. COMPARISON: [facility], CT, CT HEAD/BRAIN WO CON, 06/06/2020, 13:06. FINDINGS: Image quality: Diagnostic CSF spaces: Basal cisterns are patent. Lateral ventricles are symmetric. Volume: Vascular calcifications. Periventricular white matter disease is commonly seen with chronic microangiopathy. Volume loss is present. These findings are moderate Brain: No intracranial hemorrhage. Yu-white differentiation is grossly maintained. Craniofacial structures: No significant paranasal sinus opacity. IMPRESSION: No acute intracranial pathology. Dictated by: Jourdan Webber M.D. on 11/28/2024 at 21:23 Approved by: Jourdan Webber M.D. on 11/28/2024 at 21:25
--- NOTE | 2024-11-28 20:28 | DI.CT.S_ITS ---
PROCEDURE: CT CERVICAL SPINE WO CON INDICATIONS: GLF synope last night TECHNIQUE: Noncontrast 3 mm thick sections acquired from the skull base to the T4 level. Sagittal and coronal reformats were then constructed. For radiation dose reduction, the following was used: automated exposure control, adjustment of mA and/or kV according to patient size. COMPARISON: [facility], CT, CT CERVICAL SPINE WO CON, 06/06/2020, 13:06. FINDINGS: Image quality: Diagnostic Bones: Moderate diffuse spondylotic changes with facet arthropathy, disc space height loss, and osteophytes. Vertebral body heights are well maintained. There is no traumatic subluxation. Soft tissues: Vascular calcifications. No apical pneumothorax. Prevertebral soft tissues within normal limits. IMPRESSION: No displaced fracture or traumatic subluxation. If there is high concern for further derangement, consider MRI evaluation. Moderate background spondylosis. Dictated by: Jourdan Webber M.D. on 11/28/2024 at 21:25 Approved by: Jourdan Webber M.D. on 11/28/2024 at 21:27
--- NOTE | 2024-11-28 20:28 | DI.CT.S_ITS ---
PROCEDURE: CT ANGIO CHEST ABDOMEN PELVIS INDICATIONS: syncope, dissection protocol, R PTX on CXR small TECHNIQUE: Precontrast 5 mm thick sections acquired from the lung apices to the iliac crests. After the administration of intravenous contrast, 2.5 mm thick sections again acquired from the lung apices to the iliac crests. Maximum intensity projection (MIP) oblique sagittal and coronal reformats were then acquired. For radiation dose reduction, the following was used: automated exposure control. COMPARISON: [facility], CR, XR CHEST 1V, 11/28/2024, 19:34. FINDINGS: Image quality: Diagnostic Lungs and pleura: No pneumothorax seen. Small right and trace left effusions. Mild bronchial wall thickening. No dense airspace disease. Micro nodules for example in the left , dedicated follow-up is optional for high risk patients. Mediastinum, heart, and esophagus: Cardiomegaly. Pericardial effusion. Prominent pericardial folds. Coronary calcifications. Biatrial significant enlargement. Borderline aneurysmal ascending aorta of 4.9 cm. Atherosclerotic calcifications. No intramural hematoma. There are areas of calcified and noncalcified aortic plaque. No acute dissection. Small amount of esophageal fluid, possibly from reflux. No pathologic lymph nodes by size criteria. Chest wall and thyroid: 1.7 cm right posterior thyroid nodule. Mild diffuse body wall anasarca Liver: Irregular liver contour. Gallbladder and biliary system: Cholelithiasis, nondilated Pancreas: No ductal dilation Spleen: Nonenlarged Adrenals: No discrete nodules Kidneys: No solid mass or hydronephrosis. Vessels and lymph nodes: [id number] atherosclerotic calcifications. The major mesenteric arteries and renal arteries are overall patent. No pathologic lymph nodes by size criteria. Bowel and peritoneum: No small bowel obstruction. Diffuse colonic diverticula. No pathologic ascites. Body wall: Diffuse anasarca. Wide neck ventral hernia containing nonobstructed bowel. Small fat containing inguinal hernias. Pelvis: Bladder is unremarkable. There are post treatment changes of the prostate. These are not well assessed on CT. Bones: No aggressive appearing osseous abnormality. There are degenerative changes. Age-indeterminate, nonacute appearing L3 height loss and scattered Schmorl's nodes. IMPRESSION: Marked cardiomegaly, biatrial enlargement, and coronary calcifications. [id number] pericardial effusion. No acute or dissection. Borderline aneurysmal ascending aorta up to 4.9 cm. No pneumothorax. Suspected bronchitis and small pleural effusions. Consider future imaging surveillance to assess for resolution. 1.7 cm right posterior thyroid nodule, consider nonurgent sonographic follow-up. Cholelithiasis Irregular liver contour suggestive of chronic liver disease and possible cirrhosis. Differential includes congestive hepatopathy. Consider future HCC surveillance if clinically indicated. Wide neck ventral hernia containing nonobstructed bowel. Other findings above. Dictated by: Jourdan Webber M.D. on 11/28/2024 at 21:33 Approved by: Jourdan Webber M.D. on 11/28/2024 at 21:41
--- NOTE | 2024-11-28 20:30 | ED.FALL ---
HPI - Fall General Chief Complaint: Fall Stated Complaint: fall, back and leg px, blood thinners+ Time Seen by Provider: 11/28/24 20:19 Source: patient Mode of arrival: Ambulatory History of Present Illness HPI Narrative: 84-year-old male with history of coronary artery disease status post single coronary stent last month Oct 2024 [facility], history of atrial fibrillation on chronic warfarin anticoagulation, cardiomyopathy, syncopal episode 3 years ago, loop recorder in place, no pacemaker, had admission last month to [facility] for heart failure and coronary stenting x1, discharged on new Jardiance medication along with Bumex, saw [facility] last week and believes his Bumex dose was increased. Yesterday while walking along his kitchen floor he felt weak and fell toward the floor, believes he hit his left chest on the kitchen counter, can not recall if he hit his head, can not recall if he lost consciousness at that time. No nausea or vomiting. No focal weakness or face arm or leg. Has some bruising to the left arm, left chest, left upper quadrant. Modified trauma activation by injuries Related Data Home Medications Medication Instructions Recorded Confirmed fluticasone propionate 50 1 spray intranasal DAILY PRN 10/28/22 07/24/24 mcg/actuation nasal allergy symptoms spray,suspension (Flonase Allergy Relief) loperamide 2 mg capsule 2 mg PO DAILY PRN fecal 12/02/23 07/24/24 incontinence atorvastatin 40 mg tablet 40 mg PO BEDTIME 11/20/24 11/20/24 bumetanide 1 mg tablet 2 mg PO DAILY 11/20/24 11/20/24 clopidogrel 75 mg tablet 75 mg PO DAILY 11/20/24 11/20/24 empagliflozin 10 mg tablet 10 mg PO DAILY 11/20/24 11/20/24 (Jardiance) metoprolol succinate 25 mg 25 mg PO BID 11/20/24 11/20/24 tablet,extended release 24 hr pantoprazole 40 mg tablet,delayed 40 mg PO DAILY 11/20/24 11/20/24 release potassium chloride 10 mEq 20 meq PO DAILY 11/20/24 11/20/24 tablet,extended release (Klor-Con) Previous Rx's Medication Instructions Recorded tamsulosin 0.4 mg capsule 0.4 mg PO DAILY #90 caps 12/30/23 warfarin 5 mg tablet 5 mg PO .COMPLEX #70 tabs 02/06/24 allopurinol 300 mg tablet 300 mg PO DAILY #90 tabs 10/30/24 Allergies Allergy/AdvReac Type Severity Reaction Status Date / Time empagliflozin AdvReac Intermediate weight gain Verified 11/20/24 14:11 [From Jardiance] Patient History Medical History (Updated 11/28/24 @ 20:36 by Michael Govea MD) Coronary artery disease (~10/2024) Ventral hernia Cardiomyopathy Presence of cardiac device Easy bruisability Edema Nonsustained ventricular tachycardia Anemia Peripheral edema Vision disorder Seasonal allergies (~2009) Gout (~1996) Mumps Measles Herpes Chicken pox Hearing loss (~1971) Kidney stones (~2009) Fecal incontinence (~2014) Low testosterone (~2011) Hypertension (~2006) Atrial fibrillation (~2006) Prostate cancer (~2011) Melanoma (~2017) Surgical History (Updated 10/31/24 @ 07:55 by Stan Rizo MD) S/P coronary artery stent placement (~10/2024) S/P repair of ventral hernia (~03/2023) Carcinoma (~2016) History of rotator cuff surgery (~1994) Family History Father Cancer Hypertension Sister Stomach problems Grandfather Lung disease Grandmother No problems noted. Social History marital status: household members: spouse lives independently: Yes occupational status: previously employed Smoking Status: Former smoker alcohol intake: current substance use type: does not use Smoking Status: Former smoker alcohol intake frequency: 0-2 drinks per day Alcohol type: wine Exam Narrative Exam Narrative: GENERAL: Well-developed patient, in mild distress. HEAD: Atraumatic. Normocephalic. EYES: Pupils equal round and reactive. Extraocular motions intact. No scleral icterus. No injection or drainage. ENT: Nose without bleeding, purulent drainage. Throat without erythema, tonsillar hypertrophy or exudate. Airway patent. NECK: Trachea midline. Non tender CARDIOVASCULAR: Regular rate and rhythm without murmurs, gallops, or rubs. RESPIRATORY: Clear to auscultation. Breath sounds equal bilaterally. No wheezes, rales, or rhonchi. No crepitance right or left chest, neither mid axillary line nor posterior. Small patch ecchymoses mid axillary line left, without crepitance or swelling about nipple line. GASTROINTESTINAL: Abdomen soft, non-tender, nondistended. Left upper quadrant and left lateral mid axillary line abdominal ecchymoses patchy, without crepitance. Ventral hernia reducible, without obvious tenderness or discomfort. EXTREMITIES: No edema or joint tenderness. Bruising to the mid distal left upper arm, no gross swelling, no deformity, elbow and shoulder normal range of motion, good distal perfusion hand/fingers on that side. No tenderness to left shoulder or along clavicle. BACK: Nontender without deformity or crepitance. No flank tenderness. NEURO: AOx3. Motor functions grossly nonfocal. SKIN: No rash or erythema of visible areas Initial Vital Signs Initial Vital Signs: Vital Signs Temperature 97.4 F L 11/28/24 19:17 Pulse Rate 75 11/28/24 19:17 Respiratory Rate 16 11/28/24 19:17 Blood Pressure 154/86 H 11/28/24 19:17 Pulse Oximetry 95 11/28/24 19:17 Oxygen Delivery Method Room Air 11/28/24 19:17 Course Orders Ordered: ED Orders 11/28/24 21:52 Trop I [Troponin I] Stat Discontinued Medications Acetaminophen (Acetaminophen 325 Mg Tablet) 975 mg PO NOW ONE Stop: 11/28/24 23:54 Last Admin: 11/28/24 23:58 Dose: 975 mg Documented By: Aspirin (Aspirin 81 Mg Chew Tab) 324 mg PO NOW ONE Stop: 11/28/24 19:30 Last Admin: 11/28/24 20:45 Dose: Not Given Documented By: JOSE FRANCISCO POTASSIUM CHLORIDE IN WATER (Potassium Cl 10 Meq/100 Ml Margot) 10 meq in 100 mls @ 100 mls/hr IV Q1H HEIKE Stop: 11/28/24 22:44 Last Infusion: 11/28/24 22:58 Dose: Infused Documented By: Admin: 11/28/24 22:00 Dose: 100 mls/hr Documented By: Infusion: 11/28/24 21:57 Dose: Infused Documented By: Admin: 11/28/24 20:50 Dose: 100 mls/hr Documented By: Sodium Chloride (Normal Saline 0.9%) 1,000 mls @ 125 mls/hr IV CONT HEIKE Last Infusion: 11/28/24 22:59 Dose: Infused Documented By: Infusion: 11/28/24 21:15 Dose: 110 mls/hr Documented By: Admin: 11/28/24 21:14 Dose: 125 mls/hr Documented By: JONNY Potassium Chloride (Potassium Chloride 20 Meq Tab) 20 meq PO NOW ONE Stop: 11/28/24 22:27 Last Admin: 11/28/24 22:50 Dose: 20 meq Documented By: JONNY Vital Signs Vital signs: Vital Signs - 8 hr 11/28/24 22:30 11/28/24 22:30 11/28/24 23:00 Pulse Rate 97 H 90 Respiratory Rate 15 24 Blood Pressure 117/65 Pulse Oximetry 96 96 Oxygen Delivery Method Room Air 11/28/24 23:00 11/28/24 23:30 11/28/24 23:30 Pulse Rate 93 H Respiratory Rate 20 Blood Pressure 119/72 113/75 Pulse Oximetry 95 Oxygen Delivery Method Room Air - Fall Lab Data Attestation: I reviewed the patient's lab results. Lab results narrative: White blood cell count 7.3, hemoglobin 12.1, platelets [id number]. Sodium 138, potassium 3.3 low, chloride 99, serum CO2 33, BUN 35 with creatinine 1.21, glucose 116. T bili 2.6, alkaline phosphatase 134, ALT 60, AST 38. BNP 6400. 11/28/24 19:41 11/28/24 19:41 Labs: Lab Results 11/28/24 11/28/24 Range/Units 19:41 21:52 WBC 7.3 (4.5-11.0) X10^3/uL RBC 3.64 L (4.5-5.9) X10^6/uL Hgb 12.1 L (13.5-17.5) g/dL Hct 36.1 L (41-53) % MCV 99.3 (80-100) fL MCH 33.3 (26-34) PG MCHC 33.6 (30-36) % RDW 15.4 H (11.6-14.8) % Plt Count 182 (150-400) X10^3/uL Neut % (Auto) 78.6 H (50-75) % Lymph % (Auto) 9.5 L (25-40) % Socorro % (Auto) 10.1 (3-14) % Eos % (Auto) 1.0 L (2-4) % Baso % (Auto) 0.8 (0-2) % Neut # (Auto) 5700 (1178-3085) /uL Lymph # (Auto) 700 L (1408-3328) /uL Socorro # (Auto) 700 (0-900) /uL Eos # (Auto) 100 (0-450) /uL Baso # (Auto) 100 (0-100) /uL PT 33.5 H (9.4-12.5) SECONDS INR 3.0 H (0.9-1.3) APTT 50 H (25.1-36.5) SECONDS Sodium 138 (137-145) mmol/L Potassium 3.3 L (3.4-5.1) mmol/L Chloride 99 (98-107) mmol/L Carbon Dioxide 33 H (22-32) mmol/L BUN 35 H (9-20) mg/dL Creatinine 1.21 (0.66-1.25) mg/dL Estimated GFR 58 L (>60) mL/min BUN/Creatinine Ratio 28.9 H (6-22) Glucose 116 H (80-110) mg/dL Calcium 9.0 (8.4-10.2) mg/dL Magnesium 2.1 (1.6-2.3) mg/dL Total Bilirubin 2.6 H (0.2-1.3) mg/dL AST 60 H (17-59) IU/L ALT 38 (<50) IU/L Alkaline Phosphatase 134 H (38-126) U/L Total Creatine Kinase 285 H (55-170) U/L Troponin I 0.139 H* 0.122 H* (0.01-0.034) ng/mL NT-Pro-B Natriuret Pep 6400 H (<450) pg/mL Total Protein 6.8 (6.3-8.2) g/dL Albumin 3.9 (3.5-5.0) g/dL Globulin 2.9 (1.7-4.1) g/dL Albumin/Globulin Ratio 1.3 (1.0-2.8) Lipase 261 (23-300) U/L Imaging Data Chest x-ray: Radiologist's Impression: [address] [address] XRay Report Signed Patient: Wilfredo Lara MR#: [id number] : 1940 Acct:[id number] Age/Sex: 84 / M Date of Service: 11/28/24 Loc: ED Accession Number: [id number] Procedure: XR chest 1V Ordering Provider: Michael Govea MD PROCEDURE: XR CHEST 1V INDICATIONS: chest pain TECHNIQUE: One view of the chest was acquired. COMPARISON: [facility], CR, XR CHEST 1V, 06/06/2020, 12:56. FINDINGS: Surgical changes and devices: None. Lungs and pleura: Right pneumothorax measuring 2.3 cm. No midline shift. Mediastinum: Mediastinal contours appear normal. Heart size is markedly enlarged. Bones and chest wall: No suspicious bony lesions. Overlying soft tissues appear unremarkable. IMPRESSION: Small right pneumothorax. The above findings were discussed with Dr. Michael Govea on 11/28/2024 at 7:54 p.m.. Dictated by: Cally Escalante M.D. on 11/28/2024 at 19:53 Approved by: Cally Escalante M.D. on 11/28/2024 at 19:56 CT scan - head: Radiologist's Impression: [address] [address] [address] Scan Report Signed Patient: Wilfredo Lara MR#: [id number] : 1940 Acct:[id number] Age/Sex: 84 / M Date of Service: 11/28/24 Loc: ED Accession Number: [id number] Procedure: CT head/brain wo con Ordering Provider: Mihcael Govea MD PROCEDURE: CT HEAD/BRAIN WO CON INDICATIONS: GLF yest, warfarin, ?syncope TECHNIQUE: Noncontrast 4.5 mm thick angled axial sections acquired from the foramen magnum to the vertex, with coronal and sagittal reformats. For radiation dose reduction, the following was used: automated exposure control, adjustment of mA and/or kV according to patient size. COMPARISON: [facility], CT, CT HEAD/BRAIN WO CON, 06/06/2020, 13:06. FINDINGS: Image quality: Diagnostic CSF spaces: Basal cisterns are patent. Lateral ventricles are symmetric. Volume: Vascular calcifications. Periventricular white matter disease is commonly seen with chronic microangiopathy. Volume loss is present. These findings are moderate Brain: No intracranial hemorrhage. Yu-white differentiation is grossly maintained. Craniofacial structures: No significant paranasal sinus opacity. IMPRESSION: No acute intracranial pathology. Dictated by: Jourdan Webber M.D. on 11/28/2024 at 21:23 Approved by: Jourdan Webber M.D. on 11/28/2024 at 21:25 CT - cervical spine: Radiologist's Impression: [place] [id number] CT Scan Report Signed Patient: Wilfredo Lara MR#: [id number] : 1940 Acct:[id number] Age/Sex: 84 / M Date of Service: 11/28/24 Loc: ED Accession Number: [id number] Procedure: CT cervical spine wo con Ordering Provider: Michael Govea MD PROCEDURE: CT CERVICAL SPINE WO CON INDICATIONS: GLF synope last night TECHNIQUE: Noncontrast 3 mm thick sections acquired from the skull base to the T4 level. Sagittal and coronal reformats were then constructed. For radiation dose reduction, the following was used: automated exposure control, adjustment of mA and/or kV according to patient size. COMPARISON: [facility], CT, CT CERVICAL SPINE WO CON, 06/06/2020, 13:06. FINDINGS: Image quality: Diagnostic Bones: Moderate diffuse spondylotic changes with facet arthropathy, disc space height loss, and osteophytes. Vertebral body heights are well maintained. There is no traumatic subluxation. Soft tissues: Vascular calcifications. No apical pneumothorax. Prevertebral soft tissues within normal limits. IMPRESSION: No displaced fracture or traumatic subluxation. If there is high concern for further derangement, consider MRI evaluation. Moderate background spondylosis. Dictated by: Jourdan Webber M.D. on 11/28/2024 at 21:25 Approved by: Jourdan Webber M.D. on 11/28/2024 at 21:27 CT angio chest abdomen and pelvis.: Radiologist's Impression: [address] [address] [address] Scan Report Signed Patient: Wilfredo Lara MR#: [id number] : 1940 Acct:[id number] Age/Sex: 84 / M Date of Service: 11/28/24 Loc: ED Accession Number: [id number] Procedure: CT angio chest abdomen pelvis Ordering Provider: Michael Govea MD PROCEDURE: CT ANGIO CHEST ABDOMEN PELVIS INDICATIONS: syncope, dissection protocol, R PTX on CXR small TECHNIQUE: Precontrast 5 mm thick sections acquired from the lung apices to the iliac crests. After the administration of intravenous contrast, 2.5 mm thick sections again acquired from the lung apices to the iliac crests. Maximum intensity projection (MIP) oblique sagittal and coronal reformats were then acquired. For radiation dose reduction, the following was used: automated exposure control. COMPARISON: [facility], CR, XR CHEST 1V, 11/28/2024, 19:34. FINDINGS: Image quality: Diagnostic Lungs and pleura: No pneumothorax seen. Small right and trace left effusions. Mild bronchial wall thickening. No dense airspace disease. Micro nodules for example in the left , dedicated follow-up is optional for high risk patients. Mediastinum, heart, and esophagus: Cardiomegaly. Pericardial effusion. Prominent pericardial folds. Coronary calcifications. Biatrial significant enlargement. Borderline aneurysmal ascending aorta of 4.9 cm. Atherosclerotic calcifications. No intramural hematoma. There are areas of calcified and noncalcified aortic plaque. No acute dissection. Small amount of esophageal fluid, possibly from reflux. No pathologic lymph nodes by size criteria. Chest wall and thyroid: 1.7 cm right posterior thyroid nodule. Mild diffuse body wall anasarca Liver: Irregular liver contour. Gallbladder and biliary system: Cholelithiasis, nondilated Pancreas: No ductal dilation Spleen: Nonenlarged Adrenals: No discrete nodules Kidneys: No solid mass or hydronephrosis. Vessels and lymph nodes: Johj-ak-mumrviox atherosclerotic calcifications. The major mesenteric arteries and renal arteries are overall patent. No pathologic lymph nodes by size criteria. Bowel and peritoneum: No small bowel obstruction. Diffuse colonic diverticula. No pathologic ascites. Body wall: Diffuse anasarca. Wide neck ventral hernia containing nonobstructed bowel. Small fat containing inguinal hernias. Pelvis: Bladder is unremarkable. There are post treatment changes of the prostate. These are not well assessed on CT. Bones: No aggressive appearing osseous abnormality. There are degenerative changes. Age-indeterminate, nonacute appearing L3 height loss and scattered Schmorl's nodes. IMPRESSION: Marked cardiomegaly, biatrial enlargement, and coronary calcifications. Oxhw-ia-qxxwuthm pericardial effusion. No acute or dissection. Borderline aneurysmal ascending aorta up to 4.9 cm. No pneumothorax. Suspected bronchitis and small pleural effusions. Consider future imaging surveillance to assess for resolution. 1.7 cm right posterior thyroid nodule, consider nonurgent sonographic follow-up. Cholelithiasis Irregular liver contour suggestive of chronic liver disease and possible cirrhosis. Differential includes congestive hepatopathy. Consider future HCC surveillance if clinically indicated. Wide neck ventral hernia containing nonobstructed bowel. Other findings above. Dictated by: Jourdan Webber M.D. on 11/28/2024 at 21:33 Approved by: oJurdan Webber M.D. on 11/28/2024 at 21:41 ECG Data Attestation: I personally reviewed and interpreted this ECG as follows: Interpretation: Undetermined rhythm, history of atrial fibrillation noted, incomplete right bundle branch block. QRS 92, QTC 509. MDM Narrative Medical decision making narrative: 84-year-old male with history of CAD, cardiomyopathy, syncope, wearing loop recorder, atrial fibrillation on chronic warfarin anticoagulation, reported admission for congestive heart failure last month [facility], one-week ago had increased Bumex dose, had ground level fall in the kitchen yesterday, bruising noted to his left chest and arm and left upper quadrant. Screening chest x-ray shows small right-sided pneumothorax. EKG and labs pending. Modified trauma by injury pattern, elderly chronic anticoagulation with pneumothorax. Primary survey: ABCs intact, no neuro deficits, GCS 15. Secondary survey: See physical exam, remarkable for left mid humerus bruising without deformity or swelling with normal range of motion and distal perfusion of the extremity, left upper quadrant abdomen bruising, small patch bruising left mid axillary line left chest, no respiratory distress, no obvious tenderness to right chest side of pneumothorax reported on chest x-ray Hemodynamically stable, type and screen, other labs pending. Keep NPO. CT head, chest abdomen and pelvis. INR also pending. Troponin pending. Potassium 3.3 low, NPO at present, IV KCL for now. Chest x-ray portable study, impression: ?Small right pneumothorax. ? See radiology report. CT head noncontrast study. Impressions: ?No acute intracranial patholog. ? See radiology report. CT cervical spine without contrast. Impressions: ?No displaced fracture or traumatic subluxation..? See radiology report. CT angiogram chest abdomen and pelvis. Impressions: ?Marked cardiomegaly, biatrial enlargement, and coronary calcifications. Qtjv-bi-ikckfpcj pericardial effusion. No acute aortic dissection. Borderline aneurysmal ascending aorta up to 4.9 cm. No pneumothorax. Suspected bronchitis and small pleural effusions. Consider future imaging surveillance to assess for resolution. 1.7 cm right posterior thyroid nodule, consider nonemergent sonographic follow up. Cholelithiasis. Irregular liver contour suggestive of chronic liver disease and possible cirrhosis. Differential includes congestive hepatopath. Consider future HCC surveillance if clinically indicated. Wide neck ventral hernia containing nonobstructive bowel.. See radiology report Pneumothorax NOT confirmed by CT. Pleural effusion mentioned, not described as hemothorax. Pericardial fluid not described as bloody. No rib fractures. Initial troponin slight elevation 0.13, interval repeat troponin pending. We will give oral potassium. Repeat troponin 0.122 slight elevation as well but decreased from prior. We will consult [facility], case discussed with cardiology Dr. Mayelin [facility], he has not concerned about the troponin values this time, advises no change in medication at this time, follow up with the cardiology as planned. Regarding his recent fall and ecchymoses, patient advised to follow up with his regular doctor in the next couple of days to reassess any symptoms. Repeat potassium then advised. Return precautions discussed. Discharged home. Discharge Plan Departure Patient Disposition: Home Clinical Impression: Pneumothorax on right, Chronic anticoagulation, Contusion of left chest wall, Abdominal contusion, History of atrial fibrillation, History of coronary artery disease, History of syncope, Hypokalemia, Elevated troponin Activity Restrictions/Additional Instructions: Mr Lara, Recent fall yesterday, with bruising left arm and chest and upper abdomen. History of atrial fibrillation taking warfarin. Recent coronary stenting last month at [facility]. EKG not suggestive of heart attack, no active chest pain. Slight troponin elevation of unclear significance. Initial screening chest x-ray was read by Radiology described concern for small right-sided pneumothorax, however you did not seem to have any injury to the right chest, on examination. CT angiogram of chest abdomen and pelvis was performed to further delineate possible injuries. No injury patterns mentioned. There was no pneumothorax or hemothorax injury patterns to the chest. There was small pleural effusion in the lung, and small amount of fluid around the heart, not described as bloody. You have an enlarged heart, that is known in the past. Troponin blood test elevation was discussed with Cardiology on-call Dr. Howell, who did not think it required any change in therapy or further workup at this time. Continue taking your current medications as planned. Follow up with your local [facility], and with their cardiology team as planned. Your potassium level was low, repletion was given IV then oral. Recheck your potassium level in follow up next couple of days with your regular doctor. Also to reassess any pain or bruising problems. For now continue your warfarin and other chronic medications at current doses. Follow up with your regular doctor as above next couple of days to reassess injuries symptoms, and recheck your potassium levels. Return to this/nearest emergency department earlier for any change worsening symptoms or any concerns prior. Thank you for allowing our team to evaluate you today. Prescriptions: No Action tamsulosin 0.4 mg capsule 0.4 mg PO DAILY Qty: 90 3RF warfarin 5 mg tablet 5 mg PO .COMPLEX Qty: 70 3RF Protocol: Dose Management Condition: Tuesday Dose/Route: 5 mg Instruction: 1 x 5 mg tablet Condition: Tuesday Dose/Route: 2.5 mg Instruction: 0.5 x 5 mg tablets Condition: Tuesday Dose/Route: 2.5 mg Instruction: 0.5 x 5 mg tablets Condition: Tuesday Dose/Route: 2.5 mg Instruction: 0.5 x 5 mg tablets Condition: Dose/Route: 2.5 mg Instruction: 0.5 x 5 mg tablets Condition: Tuesday Dose/Route: 2.5 mg Instruction: 0.5 x 5 mg tablets Condition: Tuesday Dose/Route: 5 mg Instruction: 1 x 5 mg tablet Protocol Text: Adjustment Start Date: Tuesday11/07/24 INR Value: 2.4 INR Date: 11/06/24 Recheck Date: 11/21/24 Rx Instructions: Take 5 mg orally (1 tab) Tuesday and Tuesday; 2.5 mg (1/2 tab) all other days or as directed. allopurinol 300 mg tablet 300 mg PO DAILY Qty: 90 3RF fluticasone propionate [Flonase Allergy Relief] 50 mcg/actuation spray,suspension 1 spray intranasal DAILY PRN (Reason: allergy symptoms) Rx Instructions: administer into each nostril bumetanide 1 mg tablet 2 mg PO DAILY metoprolol succinate 25 mg tablet extended release 24 hr 25 mg PO BID atorvastatin 40 mg tablet 40 mg PO BEDTIME clopidogrel 75 mg tablet 75 mg PO DAILY Jardiance 10 mg tablet 10 mg PO DAILY pantoprazole 40 mg tablet,delayed release (DR/EC) 40 mg PO DAILY potassium chloride [Klor-Con 10] 10 mEq tablet extended release 20 meq PO DAILY loperamide 2 mg capsule 2 mg PO DAILY PRN (Reason: fecal incontinence) Referrals: Stan Rizo MD [Primary Care Provider] - Stand Alone Forms: Patient Portal/API/Survey
--- NOTE | 2024-11-28 20:32 | PC.NURSE ---
Patient in the room resting and is not complaining of any issues other than back pain and butt pain from his fall. He is alert and oriented and not in acute distress.
--- NOTE | 2024-11-28 20:35 | PC.NURSE ---
Patient has good pulses in radial on palpation. They are bounding and regularly irregular.
[2024-11-28] MEDS: POTASSIUM CHLORIDE IN WATER 10 MEQ/100 ML PIGGYBACK 100 MEQ IV ×2 (20:50→22:00)
--- NOTE | 2024-11-28 21:01 | PC.NURSE ---
Patient having a rate of 88 beats per minute and is regularly irregular. He is not in acute distress at this time.
[2024-11-28] MEDS: SODIUM CHLORIDE 0.9% 1,000 ML 125 ML IV (21:14)
--- NOTE | 2024-11-28 21:19 | PC.NURSE ---
Provider ordered IV fluids to discontinue after IV potassium is finished.
[2024-11-28 22:26] LABS: Troponin I 0.122 ng/mL (0.01-0.034)
[2024-11-28] MEDS: POTASSIUM CHLORIDE 20 MEQ TAB PO (22:50)
[2024-11-28] MEDS: ACETAMINOPHEN 325 MG TABLET 975 MG PO (23:58)
== END 2024-11-28 23:59 | disposition home or self-care (01) ==
PROVIDERS: Emergency Provider Emergency Medicine; Family Provider Internal Medicine; PCP Internal Medicine
DX: J93.9 Pneumothorax, unspecified (principal); S40.022A Contusion of left upper arm, initial encounter; S30.1XXA Contusion of abdominal wall, initial encounter; R07.9 Chest pain, unspecified; I45.10 Unspecified right bundle-branch block; I48.91 Unspecified atrial fibrillation; Z79.01 Long term (current) use of anticoagulants; E87.6 Hypokalemia; R79.89 Other specified abnormal findings of blood chemistry; Z86.79 Personal history of other diseases of the circulatory system
CPT/HCPCS: 36415; 70450; 71045; 71275; 72125; 74174; 80053; 82550; 83690; 83735; 83880; 84484; 85025; 85610; 85730; 93005; 93010; 96365; 96366; 99284; 99285; Q9967

== ENCOUNTER → 2024-12-11 11:27 | Outpatient (CLI) | payer MEDICARE, SELFPAY ==
[2024-12-11 12:22] LABS: Alanine Aminotransferase 26 IU/L (<50); Albumin 3.8 g/dL (3.5-5.0); Albumin Globulin Ratio 1.5 (1.0-2.8); Alkaline Phosphatase 148 U/L (38-126); Aspartate Aminotransferase 81 IU/L (17-59); Bilirubin Total 2.5 mg/dL (0.2-1.3); Bilirubin Unconjugated 1.2 mg/dL (0.0-1.1); Blood Urea Nitrogen 29 mg/dL (9-20); Calcium 9.2 mg/dL (8.4-10.2); Carbon Dioxide 33 mmol/L (22-32); Chloride 96 mmol/L (98-107); Estimated Glomerular Filt Rate 56 mL/min (>60); Globulin 2.6 g/dL (1.7-4.1); Glucose 100 mg/dL (80-110); HEMOLYSIS 19 (0-50); Potassium 3.3 mmol/L (3.4-5.1); Sodium 137 mmol/L (137-145); Total Protein 6.4 g/dL (6.3-8.2)
== END ==
PROVIDERS: Family Provider Internal Medicine; PCP Internal Medicine; Referring Provider Internal Medicine; Visit Provider Internal Medicine
DX: E87.6 Hypokalemia (principal); I42.9 Cardiomyopathy, unspecified; I10 Essential (primary) hypertension; I48.91 Unspecified atrial fibrillation; R60.9 Edema, unspecified; R74.01 Elevation of levels of liver transaminase levels
CPT/HCPCS: 36415; 80048; 80076; 83735

== ENCOUNTER → 2024-12-27 14:28 | Outpatient (CLI) | payer MEDICARE, SELFPAY ==
[2024-12-27 15:27] LABS: BUN Creatinine Ratio 26.3 (6-22); Blood Urea Nitrogen 25 mg/dL (9-20); Calcium 9.3 mg/dL (8.4-10.2); Carbon Dioxide 28 mmol/L (22-32); Chloride 101 mmol/L (98-107); Estimated Glomerular Filt Rate > 60 mL/min (>60); Glucose 101 mg/dL (80-110); HEMOLYSIS 16 (0-50); Magnesium 2.1 mg/dL (1.6-2.3); Potassium 3.8 mmol/L (3.4-5.1); Sodium 138 mmol/L (137-145)
== END ==
PROVIDERS: Family Provider Internal Medicine; PCP Internal Medicine; Referring Provider Internal Medicine; Visit Provider Internal Medicine
DX: I10 Essential (primary) hypertension (principal); C61 Malignant neoplasm of prostate; R53.1 Weakness
CPT/HCPCS: 36415; 80048; 83735

== ENCOUNTER 2025-01-27 14:16 | Emergency (ER) | payer MEDICARE, SELFPAY ==
[2025-01-27] VITALS (22 sets, daily range): BP systolic 83–147; BP diastolic 55–100; PULSE 57–90; RESP 12–19; TEMP 37.2; O2SAT 92–100; BMI 25.1
--- NOTE | 2025-01-27 15:12 | DI.RAD.S_ITS ---
PROCEDURE: XR CHEST 1V INDICATIONS: chest pain TECHNIQUE: One view of the chest was acquired. COMPARISON: [facility], CT, CT ANGIO CHEST ABDOMEN PELVIS, 11/28/2024, 20:36. [facility], CR, XR CHEST 1V, 11/28/2024, 19:34. FINDINGS: Surgical changes and devices: Electronic cardiac device is seen. Lungs and pleura: Lungs are clear. No pleural effusions or pneumothorax. Mediastinum: Mediastinal contours appear normal. Heart size is prominently enlarged. Atherosclerotic calcification of the aortic arch is noted. Bones and chest wall: No suspicious bony lesions. Age-appropriate bony degenerative changes are seen. Overlying soft tissues appear unremarkable. IMPRESSION: Prominent cardiomegaly. No focal pulmonary abnormality. Postoperative and degenerative changes are seen. Dictated by: Irving Leyva M.D. on 01/27/2025 at 14:53 Approved by: Irving Leyva M.D. on 01/27/2025 at 14:55
--- NOTE | 2025-01-27 15:13 | EKG_ITS ---
[address] [address] Test Date: 2025-01-27 Pat Name: Wilfredo Lara Department: Room: Gender: Male Unit Technician: : 1940 Requested By: Order Number: [id number] Reading MD: Stan Rizo MD Measurements Intervals [place] Rate: 77 P: [place]: QRS: -84 QRSD: 104 T: -43 QT: 426 QTc: 482 Interpretive Statements Atrial fibrillation Left axis deviation Low voltage QRS Possible Inferior infarct , age undetermined Cannot rule out Anteroseptal infarct , age undetermined NO SIGNIFICANT CHANGE FROM PRIOR TRACING Electronically Signed On 01-28-2025 7:30:26 PDT by Stan Rizo MD
[2025-01-27 15:23] LABS: Add Manual Diff / Slide Review NO; Basophils Absolute Auto 0 /uL (0-100); Basophils Percent Auto 0.9 % (0-2); Eosinophils Absolute Auto 200 /uL (0-450); Eosinophils Percent Auto 5.1 % (2-4); Hematocrit 32.3 % (41-53); Hemoglobin 10.8 g/dL (13.5-17.5); Lymphocytes Absolute Auto 800 /uL (1100-4500); Lymphocytes Percent Auto 17.5 % (25-40); Mean Corpuscular HGB Conc 33.5 % (30-36); Mean Corpuscular Volume 101.4 fL (80-100); Monocytes Absolute Auto 500 /uL (0-900); Monocytes Percent Auto 11.9 % (3-14); Neutrophils Absolute Auto 2900 /uL (1500-7000); Neutrophils Percent Auto 64.6 % (50-75); Platelet Count 146 X10^3/uL (150-400); Red Blood Cell Count 3.18 X10^6/uL (4.5-5.9); Red Cell Distribution Width 16.7 % (11.6-14.8); White Blood Cell Count 4.4 X10^3/uL (4.5-11.0)
[2025-01-27 15:24] LABS: INR 2.5 (0.9-1.3); Prothrombin Time 27.9 SECONDS (9.4-12.5)
--- NOTE | 2025-01-27 15:25 | ED.LOWEXIN ---
HPI - Extremity Injury (Lower) General Chief Complaint: Extremity Injury, Lower Stated Complaint: sent from [facility] edema problem Time Seen by Provider: 01/27/25 15:15 Source: patient Mode of arrival: Ambulatory History of Present Illness HPI Narrative: 84-year-old gentleman history of CAD x1 stent back in November 10 history of atrial fibrillation on Coumadin presents with increased scrotal edema bilateral lower leg swelling and right leg laceration after hitting his leg against the desk last evening. He is taking his Bumex as as directed. Denies chest pain fever, chills, cough, but does report weight gain, and shortness of breath and dyspnea on exertion. Other than what is stated 14 point review of system is negative Related Data Home Medications Medication Instructions Recorded Confirmed fluticasone propionate 50 1 spray intranasal DAILY PRN 10/28/22 12/11/24 mcg/actuation nasal allergy symptoms spray,suspension (Flonase Allergy Relief) loperamide 2 mg capsule 2 mg PO DAILY PRN fecal 12/02/23 12/11/24 incontinence atorvastatin 40 mg tablet 40 mg PO BEDTIME 11/20/24 12/11/24 clopidogrel 75 mg tablet 75 mg PO DAILY 11/20/24 12/11/24 empagliflozin 10 mg tablet 10 mg PO DAILY 11/20/24 12/11/24 (Jardiance) metoprolol succinate 25 mg 25 mg PO BID 11/20/24 12/11/24 tablet,extended release 24 hr pantoprazole 40 mg tablet,delayed 40 mg PO DAILY 11/20/24 12/11/24 release Previous Rx's Medication Instructions Recorded warfarin 5 mg tablet 5 mg PO .COMPLEX #70 tabs 02/06/24 allopurinol 300 mg tablet 300 mg PO DAILY #90 tabs 10/30/24 potassium chloride 20 mEq 20 meq PO DAILY #180 tabs 12/31/24 tablet,extended release tamsulosin 0.4 mg capsule 0.4 mg PO DAILY #90 caps 01/04/25 Allergies Allergy/AdvReac Type Severity Reaction Status Date / Time empagliflozin AdvReac Intermediate weight gain Verified 12/11/24 10:39 [From Jardiance] Review of Systems Review of Systems ROS Unobtainable: All systems reviewed & are unremarkable except as noted in HPI and below Patient History Medical History (Updated 01/27/25 @ 18:33 by Stan Gill, DO) Coronary artery disease (~10/2024) Ventral hernia Cardiomyopathy Presence of cardiac device Easy bruisability Edema Nonsustained ventricular tachycardia Anemia Peripheral edema Vision disorder Seasonal allergies (~2009) Gout (~1996) Mumps Measles Herpes Chicken pox Hearing loss (~1971) Kidney stones (~2009) Fecal incontinence (~2014) Low testosterone (~2011) Hypertension (~2006) Atrial fibrillation (~2006) Prostate cancer (~2011) Melanoma (~2017) Surgical History (Updated 10/31/24 @ 07:55 by Stan Rizo MD) S/P coronary artery stent placement (~10/2024) S/P repair of ventral hernia (~03/2023) Carcinoma (~2016) History of rotator cuff surgery (~1994) Family History Father Cancer Hypertension Sister Stomach problems Grandfather Lung disease Grandmother No problems noted. Social History marital status: household members: spouse lives independently: Yes occupational status: previously employed Smoking Status: Former smoker alcohol intake: current substance use type: does not use Smoking Status: Former smoker alcohol intake frequency: 0-2 drinks per day Alcohol type: wine Exam Narrative Exam Narrative: GENERAL: [84] year old patient appears stated age. Well-developed patient, in mild distress. HEAD: Atraumatic. Normocephalic. EYES: Pupils equal round and reactive. Extraocular motions intact. No scleral icterus. No injection or drainage. ENT: Nose without bleeding, purulent drainage. Throat without erythema, tonsillar hypertrophy or exudate. Airway patent. NECK: Trachea midline. Non tender CARDIOVASCULAR: Regular rate and rhythm without murmurs, gallops, or rubs. RESPIRATORY: Diminished b/s b/l with faint crackles at bases GASTROINTESTINAL: Abdomen soft, non-tender, nondistended. Umbilical hernia grapefruit size : Testicle normal size, scrotum normal, uncircumsized EXTREMITIES: +2 Pretibial edema b/l BACK: Nontender without deformity or crepitance. No flank tenderness. NEURO: AOx3. SKIN: No rash or erythema of visible areas. R lateral ankle V shape laceration 2.5x2.5cm Initial Vital Signs Initial Vital Signs: Vital Signs Temperature 98.9 F 01/27/25 14:27 Pulse Rate 74 01/27/25 14:27 Respiratory Rate 16 01/27/25 14:27 Blood Pressure 147/100 H 01/27/25 14:27 Pulse Oximetry 100 01/27/25 14:27 Oxygen Delivery Method Room Air 01/27/25 14:27 Procedures Laceration Repair Laceration 1: Time of procedure: 03:52 Site: lower extremity Side (If applicable): right Size (cm): 2.5 Description: linear and other (Inverted V shape) Depth: simple, single layer Local Anesthetic: lidocaine 1% and with epi Amount of anesthesia used (mL): 3 Skin layer closed with: nylon Skin layer suture size: 3-0 Number of sutures: 6 Technique: simple, interrupted Course Orders Ordered: ED Orders 01/27/25 15:06 Complete Blood Count AUTO DIFF Stat Comprehensive Metabolic Panel Stat Lipase Stat Magnesium Stat NT-proBNP (BNP-Adult 18+) Stat PTT Partial Thromboplastin Joaquin Stat Prothrombin Time INR Stat Troponin & CK Cardiac Panel Stat 01/27/25 15:12 XR chest 1V Stat EKG-12 Lead Stat 01/27/25 17:30 Troponin I Stat Discontinued Medications Bumetanide (Bumetanide 1 Mg/4 Ml Vial) 1 mg IV NOW ONE Stop: 01/27/25 17:06 Last Admin: 01/27/25 17:35 Dose: 1 mg Documented By: JONNY Lidocaine/Epinephrine (Lidocaine 1% W/Epi 10ml) 20 ml INJ INTRA-OP ONE Stop: 01/27/25 15:25 Last Admin: 01/27/25 16:11 Dose: 20 ml Documented By: JONNY Vital Signs Vital signs: Vital Signs - 8 hr 01/27/25 14:27 01/27/25 14:37 01/27/25 14:38 Temperature 98.9 F Pulse Rate 74 75 Respiratory Rate 16 Blood Pressure 147/100 H 83/57 L Pulse Oximetry 100 98 Oxygen Delivery Method Room Air 01/27/25 14:38 01/27/25 14:39 01/27/25 14:39 Temperature Pulse Rate 74 84 Respiratory Rate Blood Pressure 91/58 L Pulse Oximetry 98 97 Oxygen Delivery Method 01/27/25 15:00 01/27/25 15:00 01/27/25 15:06 Temperature Pulse Rate 67 71 Respiratory Rate Blood Pressure 89/57 L Pulse Oximetry 98 98 Oxygen Delivery Method 01/27/25 15:06 01/27/25 15:10 01/27/25 15:10 Temperature Pulse Rate 69 Respiratory Rate Blood Pressure 88/58 L 90/57 L Pulse Oximetry 99 Oxygen Delivery Method 01/27/25 15:15 01/27/25 15:15 01/27/25 15:20 Temperature Pulse Rate 79 71 Respiratory Rate 19 Blood Pressure 91/59 L Pulse Oximetry 98 98 Oxygen Delivery Method 01/27/25 15:20 01/27/25 15:25 01/27/25 15:25 Temperature Pulse Rate 87 Respiratory Rate 16 Blood Pressure 90/55 L 93/57 L Pulse Oximetry 98 Oxygen Delivery Method 01/27/25 15:30 01/27/25 15:30 01/27/25 15:35 Temperature Pulse Rate 70 90 Respiratory Rate 16 15 Blood Pressure 95/59 L Pulse Oximetry 98 96 Oxygen Delivery Method 01/27/25 15:35 01/27/25 15:41 01/27/25 15:41 Temperature Pulse Rate 89 Respiratory Rate 15 Blood Pressure 101/64 101/66 Pulse Oximetry 98 Oxygen Delivery Method 01/27/25 15:45 01/27/25 15:45 01/27/25 15:55 Temperature Pulse Rate 71 87 Respiratory Rate 16 14 Blood Pressure 97/65 Pulse Oximetry 99 97 Oxygen Delivery Method 01/27/25 15:55 01/27/25 16:00 01/27/25 16:00 Temperature Pulse Rate 90 Respiratory Rate 14 Blood Pressure 94/64 99/66 Pulse Oximetry 93 Oxygen Delivery Method 01/27/25 16:05 01/27/25 16:05 01/27/25 16:11 Temperature Pulse Rate 77 87 Respiratory Rate 12 14 Blood Pressure 103/70 Pulse Oximetry 97 92 Oxygen Delivery Method 01/27/25 16:11 01/27/25 16:21 01/27/25 16:21 Temperature Pulse Rate 57 L Respiratory Rate 19 Blood Pressure 112/62 96/71 Pulse Oximetry 100 Oxygen Delivery Method 01/27/25 16:30 01/27/25 17:00 Temperature Pulse Rate 76 72 Respiratory Rate Blood Pressure Pulse Oximetry 100 100 Oxygen Delivery Method MDM - Extremity Injury (Lower) Lab Data 01/27/25 15:06 01/27/25 15:06 Labs: Lab Results 01/27/25 01/27/25 Range/Units 15:06 17:30 WBC 4.4 L (4.5-11.0) X10^3/uL RBC 3.18 L (4.5-5.9) X10^6/uL Hgb 10.8 L (13.5-17.5) g/dL Hct 32.3 L (41-53) % MCV 101.4 H (80-100) fL MCH 34.0 (26-34) PG MCHC 33.5 (30-36) % RDW 16.7 H (11.6-14.8) % Plt Count 146 L (150-400) X10^3/uL Neut % (Auto) 64.6 (50-75) % Lymph % (Auto) 17.5 L (25-40) % [place] % (Auto) 11.9 (3-14) % Eos % (Auto) 5.1 H (2-4) % Baso % (Auto) 0.9 (0-2) % Neut # (Auto) 2900 (1968-6742) /uL Lymph # (Auto) 800 L (6636-0152) /uL [place] # (Auto) 500 (0-900) /uL Eos # (Auto) 200 (0-450) /uL Baso # (Auto) 0 (0-100) /uL PT 27.9 H (9.4-12.5) SECONDS INR 2.5 H (0.9-1.3) APTT 44 H (25.1-36.5) SECONDS Sodium 136 L (137-145) mmol/L Potassium 4.6 (3.4-5.1) mmol/L Chloride 103 (98-107) mmol/L Carbon Dioxide 28 (22-32) mmol/L BUN 34 H (9-20) mg/dL Creatinine 1.20 (0.66-1.25) mg/dL Estimated GFR 59 L (>60) mL/min BUN/Creatinine Ratio 28.3 H (6-22) Glucose 103 (80-110) mg/dL Calcium 9.0 (8.4-10.2) mg/dL Magnesium 2.4 H (1.6-2.3) mg/dL Total Bilirubin 2.0 H (0.2-1.3) mg/dL AST 36 (17-59) IU/L ALT 28 (<50) IU/L Alkaline Phosphatase 147 H (38-126) U/L Total Creatine Kinase 52 L (55-170) U/L Troponin I 0.079 H 0.068 H (0.01-0.034) ng/mL NT-Pro-B Natriuret Pep 5960 H (<450) pg/mL Total Protein 5.9 L (6.3-8.2) g/dL Albumin 3.6 (3.5-5.0) g/dL Globulin 2.3 (1.7-4.1) g/dL Albumin/Globulin Ratio 1.6 (1.0-2.8) Lipase 283 (23-300) U/L Imaging Data Chest x-ray: Radiologist's Impression: [address] [address] XRay Report Signed Patient: Wilfredo Lara MR#: [id number] : 1940 Acct:[id number] Age/Sex: 84 / M Date of Service: 01/27/25 Loc: ED Accession Number: [id number] Procedure: XR chest 1V Ordering Provider: Stan Gill D.O. PROCEDURE: XR CHEST 1V INDICATIONS: chest pain TECHNIQUE: One view of the chest was acquired. COMPARISON: [facility], CT, CT ANGIO CHEST ABDOMEN PELVIS, 11/28/2024, 20:36. [facility], CR, XR CHEST 1V, 11/28/2024, 19:34. FINDINGS: Surgical changes and devices: Electronic cardiac device is seen. Lungs and pleura: Lungs are clear. No pleural effusions or pneumothorax. Mediastinum: Mediastinal contours appear normal. Heart size is prominently enlarged. Atherosclerotic calcification of the aortic arch is noted. Bones and chest wall: No suspicious bony lesions. Age-appropriate bony degenerative changes are seen. Overlying soft tissues appear unremarkable. IMPRESSION: Prominent cardiomegaly. No focal pulmonary abnormality. Postoperative and degenerative changes are seen. ECG Data Interpretation: Afib Low voltage LAD HR 77 QRS 104 QT 426 Change from 11/28/24 MDM Narrative Medical decision making narrative: All lab work EKG chest x-ray vital signs nursing triage note previously ER visits in all imaging modalities all reviewed. Patient given Bumex 1 mg IV x1 here. Patient's BNP is 5960 and troponin is 0.079 and on repeat went down to 0.068. His troponin back in November 28, 2024 went as high as 0.139. Patient was offered admission but he politely declined admission and wanted to go home. Suture removal with PCP in 10-14 days. Continue to take Bumex as directed. Differential diagnosis includes leg laceration, foreign body, cellulitis, CHF, kidney injury, electrolyte derangement. Discharge Plan Departure Patient Disposition: Home Clinical Impression: Laceration of leg Qualifiers: Encounter type: initial encounter Laterality: right Qualified Code(s): S81.811A - Laceration without foreign body, right lower leg, initial encounter CHF (congestive heart failure) Qualifiers: Heart failure type: systolic Heart failure chronicity: acute on chronic Qualified Code(s): I50.23 - Acute on chronic systolic (congestive) heart failure Instructions: DI for Laceration Repair Activity Restrictions/Additional Instructions: Return with new or worsening symptoms. Take your medicines as directed follow up with PCP in 10-14 days for suture removal Prescriptions: No Action warfarin 5 mg tablet 5 mg PO .COMPLEX Qty: 70 3RF Protocol: Dose Management Condition: Tuesday Dose/Route: 2.5 mg Instruction: 0.5 x 5 mg tablets Condition: Tuesday Dose/Route: 2.5 mg Instruction: 0.5 x 5 mg tablets Condition: Tuesday Dose/Route: 2.5 mg Instruction: 0.5 x 5 mg tablets Condition: Tuesday Dose/Route: 2.5 mg Instruction: 0.5 x 5 mg tablets Condition: Dose/Route: 2.5 mg Instruction: 0.5 x 5 mg tablets Condition: Tuesday Dose/Route: 2.5 mg Instruction: 0.5 x 5 mg tablets Condition: Tuesday Dose/Route: 2.5 mg Instruction: 0.5 x 5 mg tablets Protocol Text: Adjustment Start Date: Tuesday01/14/25 INR Value: 2.1 INR Date: 01/14/25 Recheck Date: 01/28/25 Rx Instructions: Take 5 mg orally (1 tab) Tuesday and Tuesday; 2.5 mg (1/2 tab) all other days or as directed. allopurinol 300 mg tablet 300 mg PO DAILY Qty: 90 3RF potassium chloride 20 mEq tablet extended release 20 meq PO DAILY Qty: 180 3RF tamsulosin 0.4 mg capsule 0.4 mg PO DAILY Qty: 90 3RF fluticasone propionate [Flonase Allergy Relief] 50 mcg/actuation spray,suspension 1 spray intranasal DAILY PRN (Reason: allergy symptoms) Rx Instructions: administer into each nostril metoprolol succinate 25 mg tablet extended release 24 hr 25 mg PO BID atorvastatin 40 mg tablet 40 mg PO BEDTIME clopidogrel 75 mg tablet 75 mg PO DAILY Jardiance 10 mg tablet 10 mg PO DAILY pantoprazole 40 mg tablet,delayed release (DR/EC) 40 mg PO DAILY loperamide 2 mg capsule 2 mg PO DAILY PRN (Reason: fecal incontinence) Referrals: Stan Rizo MD [Primary Care Provider] - Stand Alone Forms: Patient Portal/API/Survey
[2025-01-27 15:27] LABS: PTT Partial Thromboplastin Tim 44 SECONDS (25.1-36.5)
[2025-01-27 15:29] LABS: Alanine Aminotransferase 28 IU/L (<50); Albumin 3.6 g/dL (3.5-5.0); Albumin Globulin Ratio 1.6 (1.0-2.8); Alkaline Phosphatase 147 U/L (38-126); Aspartate Aminotransferase 36 IU/L (17-59); BUN Creatinine Ratio 28.3 (6-22); Blood Urea Nitrogen 34 mg/dL (9-20); Carbon Dioxide 28 mmol/L (22-32); Chloride 103 mmol/L (98-107); Creatine Kinase 52 U/L (55-170); Estimated Glomerular Filt Rate 59 mL/min (>60); Globulin 2.3 g/dL (1.7-4.1); Glucose 103 mg/dL (80-110); HEMOLYSIS < 15 (0-50); Lipase 283 U/L (23-300); Magnesium 2.4 mg/dL (1.6-2.3); Potassium 4.6 mmol/L (3.4-5.1); Sodium 136 mmol/L (137-145); Total Protein 5.9 g/dL (6.3-8.2)
[2025-01-27 15:40] LABS: NT-proBNP (BNP-Adult 18+) 5960 pg/mL (<450); Troponin I 0.079 ng/mL (0.01-0.034)
[2025-01-27] MEDS: LIDOCAINE 1% W/EPI 10ML 20 ML INJ (16:11)
--- NOTE | 2025-01-27 16:13 | PC.NURSE ---
patient has history of bilateral pitting edema and is currently being seen by his doctor for medication management. He cut his leg last night and had his leg bandaged in hopes that is would stop weeping serosanguinous fluid. he came to the ed today to be evaluated. he denies other symptoms. sutured pt wound
[2025-01-27] MEDS: BUMETANIDE 1 MG/4 ML VIAL IV (17:35)
[2025-01-27 18:03] LABS: Troponin I 0.068 ng/mL (0.01-0.034)
== END 2025-01-27 19:02 | disposition home or self-care (01) ==
PROVIDERS: Emergency Provider Family Medicine; Family Provider Internal Medicine; PCP Internal Medicine
DX: S81.811A Laceration without foreign body, right lower leg, initial encounter (principal); I50.23 Acute on chronic systolic (congestive) heart failure; I48.91 Unspecified atrial fibrillation; Z79.01 Long term (current) use of anticoagulants; X58.XXXA Exposure to other specified factors, initial encounter
CPT/HCPCS: 12001; 36415; 71045; 80053; 82550; 83690; 83735; 83880; 84484; 85025; 85610; 85730; 93005; 93010; 96374; 99284

== ENCOUNTER 2025-02-08 19:30 | Emergency (ER) | payer MEDICARE, SELFPAY ==
[2025-02-08] VITALS (18 sets, daily range): BP systolic 91–118; BP diastolic 56–76; PULSE 0–130; RESP 13–46; TEMP 36.4; O2SAT 78–98; BMI 25.2
--- NOTE | 2025-02-08 20:00 | DI.CT.S_ITS ---
PROCEDURE: CT HEAD/BRAIN WO CON INDICATIONS: dizziness, falls, on coumadin TECHNIQUE: Noncontrast 4.5 mm thick angled axial sections acquired from the foramen magnum to the vertex, with coronal and sagittal reformats. For radiation dose reduction, the following was used: automated exposure control, adjustment of mA and/or kV according to patient size. COMPARISON: [facility], CT, CT HEAD/BRAIN WO CON, 11/28/2024, 20:36. FINDINGS: Image quality: Diagnostic. CSF spaces: Basal cisterns are patent. No extra-axial fluid collections. The ventricles are symmetric in size and shape. Brain: No intracranial bleeds or mass effect. There is cerebral volume loss, with resultant ventricular and sulcal prominence. There are periventricular and deep white matter chronic small vessel ischemic changes. There is intracranial internal carotid artery atherosclerosis. Skull and face: Calvarium and visualized facial bones appear intact, without suspicious lesions. Sinuses: Visualized sinuses and mastoids are clear. IMPRESSION: No acute intracranial pathology. Dictated by: Dariusz Walker M.D. on 02/08/2025 at 20:38 Approved by: Dariusz Walker M.D. on 02/08/2025 at 20:39
--- NOTE | 2025-02-08 20:00 | EKG_ITS ---
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
--- NOTE | 2025-02-08 20:00 | DI.CT.S_ITS ---
PROCEDURE: CT ANGIO HEAD AND NECK INDICATIONS: dizziness, falls, on coumadin TECHNIQUE: After the administration of intravenous contrast, 1 mm thick sections acquired from the aortic arch through the [place] of [place]. 3-dimensional avnnhed-ypfrticho-dntsznvgrx (MIP) and/or volume rendering reformats were acquired of the central intracranial vasculature and neck separately. For radiation dose reduction, the following was used: automated exposure control, adjustment of mA and/or kV according to patient size. COMPARISON: None. FINDINGS: Image quality: Diagnostic. BRAIN: CSF spaces: Ventricles are normal in size and shape. Basal cisterns are patent. No extra-axial fluid collections. Brain: No significant abnormality of the brain can be seen. Skull and face: Calvarium and facial bones appear intact, without suspicious lesions. Orbits appear normal. Sinuses: Sinuses and mastoids are clear. HEAD CT ANGIOGRAPHY: Anterior circulation: Intracranial internal carotid arteries are normal in size and flow. The flow within the paired anterior cerebral arteries is normal and symmetric. The flow within the middle cerebral arteries is normal and symmetric. The anterior communicating artery is seen. No aneurysms are seen. 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 No evidence of rupture. Flow within the posterior cerebral arteries is normal and symmetric. No aneurysms are seen. NECK CT ANGIOGRAPHY: Carotid system: The great vessels demonstrate a conventional anatomy as they arise from the aortic arch. The origins of the common carotid arteries appear patent. The common carotid arteries demonstrate normal caliber and courses. The bifurcation regions are both widely patent. The internal carotid arteries demonstrate normal calibers and courses. Posterior circulation: The origins of the vertebral arteries both appear widely patent. The more superior extracranial portions of both vertebral arteries also demonstrate normal courses and calibers. They join to form a normal appearing basilar artery. Soft tissues: Small right pleural effusion. Trace fluid within the pericardiac recess. Bones: No suspicious bony lesions. Visualized cervical spine appears normally aligned. 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 Unclear clinical significance but probably an incidental finding. No significant abnormality is seen within the arteries of the neck. Any quantitative measurements of stenosis were performed using NASCET criteria. Dictated by: Dariusz Walker M.D. on 02/08/2025 at 20:40 Approved by: Dariusz Walker M.D. on 02/08/2025 at 20:44
--- NOTE | 2025-02-08 20:03 | ED.DIZZY ---
HPI - Dizziness General Chief Complaint: Fall Stated Complaint: Fall after dizziness x4days, lower back px Time Seen by Provider: 02/08/25 19:48 History of Present Illness HPI Narrative: 84-year-old gentleman history of CAD x1 stent, atrial fibrillation on Coumadin, presents with dizziness that has been worsening over the past week period. He reports his dizziness as room spinning sensation that can happen within 15 minutes of being ambulatory or in a few hours. He states he has fallen at least once if not twice due to the dizziness but denies loss of consciousness headache blurred vision difficulty speaking difficulty swallowing or weakness on 1 side of the body. Patient denies fever chills cough runny nose sore throat chest pain or worsening shortness of breath dyspnea on exertion. Other than what is stated 14 point review of system is negative Related Data Home Medications Medication Instructions Recorded Confirmed fluticasone propionate 50 1 spray intranasal DAILY PRN 10/28/22 12/11/24 mcg/actuation nasal allergy symptoms spray,suspension (Flonase Allergy Relief) loperamide 2 mg capsule 2 mg PO DAILY PRN fecal 12/02/23 12/11/24 incontinence atorvastatin 40 mg tablet 40 mg PO BEDTIME 11/20/24 12/11/24 clopidogrel 75 mg tablet 75 mg PO DAILY 11/20/24 12/11/24 empagliflozin 10 mg tablet 10 mg PO DAILY 11/20/24 12/11/24 (Jardiance) metoprolol succinate 25 mg 25 mg PO BID 11/20/24 12/11/24 tablet,extended release 24 hr pantoprazole 40 mg tablet,delayed 40 mg PO DAILY 11/20/24 12/11/24 release Previous Rx's Medication Instructions Recorded warfarin 5 mg tablet 5 mg PO .COMPLEX #70 tabs 02/06/24 allopurinol 300 mg tablet 300 mg PO DAILY #90 tabs 10/30/24 potassium chloride 20 mEq 20 meq PO DAILY #180 tabs 12/31/24 tablet,extended release tamsulosin 0.4 mg capsule 0.4 mg PO DAILY #90 caps 01/04/25 Allergies Allergy/AdvReac Type Severity Reaction Status Date / Time empagliflozin AdvReac Intermediate weight gain Verified 12/11/24 10:39 [From Jardiance] Review of Systems Review of Systems ROS Unobtainable: All systems reviewed & are unremarkable except as noted in HPI and below Patient History Medical History (Updated 02/09/25 @ 01:00 by Stan Gill, DO) Coronary artery disease (~10/2024) Ventral hernia Cardiomyopathy Presence of cardiac device Easy bruisability Edema Nonsustained ventricular tachycardia Anemia Peripheral edema Vision disorder Seasonal allergies (~2009) Gout (~1996) Mumps Measles Herpes Chicken pox Hearing loss (~1971) Kidney stones (~2009) Fecal incontinence (~2014) Low testosterone (~2011) Hypertension (~2006) Atrial fibrillation (~2006) Prostate cancer (~2011) Melanoma (~2017) Surgical History (Updated 10/31/24 @ 07:55 by Stan Rizo MD) S/P coronary artery stent placement (~10/2024) S/P repair of ventral hernia (~03/2023) Carcinoma (~2016) History of rotator cuff surgery (~1994) Family History Father Cancer Hypertension Sister Stomach problems Grandfather Lung disease Grandmother No problems noted. Social History marital status: household members: spouse lives independently: Yes occupational status: previously employed alcohol intake: current substance use type: does not use alcohol intake frequency: 0-2 drinks per day Alcohol type: wine Exam Narrative Exam Narrative: GENERAL: [84] year old patient appears stated age. Well-developed patient, in mild distress. HEAD: Atraumatic. Normocephalic. EYES: Pupils equal round and reactive. Extraocular motions intact. No scleral icterus. No injection or drainage. ENT: Nose without bleeding, purulent drainage. Throat without erythema, tonsillar hypertrophy or exudate. Airway patent. NECK: Trachea midline. Non tender CARDIOVASCULAR: Regular rate and rhythm without murmurs, gallops, or rubs. RESPIRATORY: Clear to auscultation. Breath sounds equal bilaterally. No wheezes, rales, or rhonchi. GASTROINTESTINAL: Abdomen soft, non-tender, nondistended. EXTREMITIES: Chronic b/l lower extremity edema +3 b/l pitting edema BACK: Nontender without deformity or crepitance. No flank tenderness. NEURO: AOx3. GCS 15 nonfocal neuro exam. Moving all extremities. Neg romberg. SKIN: No rash or erythema of visible areas Initial Vital Signs Initial Vital Signs: Vital Signs Pulse Rate 78 02/08/25 19:40 Pulse Oximetry 85 L 02/08/25 19:40 Course Orders Ordered: ED Orders 02/08/25 20:00 CT angio head and neck Stat CT head/brain wo con Stat Urinalysis and Microscopic Stat Urine Drug Screen, Rapid Stat EKG-12 Lead Stat 02/08/25 20:06 Complete Blood Count AUTO DIFF Stat Comprehensive Metabolic Panel Stat Ethanol (ETOH) Stat PTT Partial Thromboplastin Joaquin Stat Prothrombin Time INR Stat Troponin & CK Cardiac Panel Stat 02/08/25 20:45 Covid-19 + FLU A/B + RSV - PCR Stat 02/08/25 22:02 Troponin I Stat Discontinued Medications Lactated Ringer's (Lactated Ringers) 500 mls @ 500 mls/hr IV BOLUS ONE Stop: 02/08/25 22:07 Last Infusion: 02/08/25 22:02 Dose: Infused Documented By: Admin: 02/08/25 21:10 Dose: 500 mls/hr Documented By: ANDREIA Vital Signs Vital signs: Vital Signs - 8 hr 02/08/25 20:00 02/08/25 20:00 02/08/25 20:00 Pulse Rate 84 Pulse Rate [Orthostatic Lying] Pulse Rate [Orthostatic Sitting] Pulse Rate [Orthostatic Standing] 77 Respiratory Rate Blood Pressure 100/64 Blood Pressure [Orthostatic Lying] Blood Pressure [Orthostatic Sitting] Blood Pressure [Orthostatic Standing] 92/62 Pulse Oximetry 94 02/08/25 20:22 02/08/25 20:22 02/08/25 20:25 Pulse Rate 73 130 H Pulse Rate [Orthostatic Lying] Pulse Rate [Orthostatic Sitting] Pulse Rate [Orthostatic Standing] Respiratory Rate 32 H 32 H Blood Pressure 108/68 Blood Pressure [Orthostatic Lying] Blood Pressure [Orthostatic Sitting] Blood Pressure [Orthostatic Standing] Pulse Oximetry 94 78 L 02/08/25 20:26 02/08/25 20:29 02/08/25 20:29 Pulse Rate 0 L Pulse Rate [Orthostatic Lying] Pulse Rate [Orthostatic Sitting] Pulse Rate [Orthostatic Standing] Respiratory Rate 15 Blood Pressure 114/74 101/66 Blood Pressure [Orthostatic Lying] Blood Pressure [Orthostatic Sitting] Blood Pressure [Orthostatic Standing] Pulse Oximetry 96 02/08/25 20:30 02/08/25 20:38 02/08/25 20:42 Pulse Rate 73 60 Pulse Rate [Orthostatic Lying] 68 Pulse Rate [Orthostatic Sitting] 77 Pulse Rate [Orthostatic Standing] Respiratory Rate 23 Blood Pressure Blood Pressure [Orthostatic Lying] 114/74 Blood Pressure [Orthostatic Sitting] 101/66 Blood Pressure [Orthostatic Standing] Pulse Oximetry 97 97 02/08/25 20:42 02/08/25 21:00 02/08/25 21:00 Pulse Rate 76 Pulse Rate [Orthostatic Lying] Pulse Rate [Orthostatic Sitting] Pulse Rate [Orthostatic Standing] Respiratory Rate 13 Blood Pressure 92/62 100/64 Blood Pressure [Orthostatic Lying] Blood Pressure [Orthostatic Sitting] Blood Pressure [Orthostatic Standing] Pulse Oximetry 96 02/08/25 21:30 02/08/25 21:30 02/08/25 22:00 Pulse Rate 75 Pulse Rate [Orthostatic Lying] Pulse Rate [Orthostatic Sitting] Pulse Rate [Orthostatic Standing] Respiratory Rate 28 H Blood Pressure 110/68 112/76 Blood Pressure [Orthostatic Lying] Blood Pressure [Orthostatic Sitting] Blood Pressure [Orthostatic Standing] Pulse Oximetry 96 02/08/25 22:00 02/08/25 22:30 02/08/25 23:00 Pulse Rate 71 78 94 H Pulse Rate [Orthostatic Lying] Pulse Rate [Orthostatic Sitting] Pulse Rate [Orthostatic Standing] Respiratory Rate 44 H 43 H 18 Blood Pressure Blood Pressure [Orthostatic Lying] Blood Pressure [Orthostatic Sitting] Blood Pressure [Orthostatic Standing] Pulse Oximetry 96 96 96 02/08/25 23:00 02/08/25 23:30 02/08/25 23:30 Pulse Rate 76 Pulse Rate [Orthostatic Lying] Pulse Rate [Orthostatic Sitting] Pulse Rate [Orthostatic Standing] Respiratory Rate 46 H Blood Pressure 118/67 118/71 Blood Pressure [Orthostatic Lying] Blood Pressure [Orthostatic Sitting] Blood Pressure [Orthostatic Standing] Pulse Oximetry 97 02/09/25 00:00 02/09/25 00:00 02/09/25 00:30 Pulse Rate 77 88 Pulse Rate [Orthostatic Lying] Pulse Rate [Orthostatic Sitting] Pulse Rate [Orthostatic Standing] Respiratory Rate 38 H 46 H Blood Pressure 122/78 Blood Pressure [Orthostatic Lying] Blood Pressure [Orthostatic Sitting] Blood Pressure [Orthostatic Standing] Pulse Oximetry 95 97 02/09/25 00:30 02/09/25 00:59 02/09/25 01:00 Pulse Rate 71 Pulse Rate [Orthostatic Lying] Pulse Rate [Orthostatic Sitting] Pulse Rate [Orthostatic Standing] Respiratory Rate 44 H Blood Pressure 112/71 104/71 Blood Pressure [Orthostatic Lying] Blood Pressure [Orthostatic Sitting] Blood Pressure [Orthostatic Standing] Pulse Oximetry 97 02/09/25 01:00 Pulse Rate 78 Pulse Rate [Orthostatic Lying] Pulse Rate [Orthostatic Sitting] Pulse Rate [Orthostatic Standing] Respiratory Rate 18 Blood Pressure Blood Pressure [Orthostatic Lying] Blood Pressure [Orthostatic Sitting] Blood Pressure [Orthostatic Standing] Pulse Oximetry 96 MDM - Dizziness Lab Data 02/08/25 20:06 02/08/25 20:06 Labs: Lab Results 02/08/25 02/08/25 02/08/25 Range/Units 20:06 20:45 22:02 WBC 4.9 (4.5-11.0) X10^3/uL RBC 3.49 L (4.5-5.9) X10^6/uL Hgb 11.8 L (13.5-17.5) g/dL Hct 35.0 L (41-53) % MCV 100.5 H (80-100) fL MCH 33.9 (26-34) PG MCHC 33.7 (30-36) % RDW 16.0 H (11.6-14.8) % Plt Count 178 (150-400) X10^3/uL Neut % (Auto) 71.3 (50-75) % Lymph % (Auto) 15.3 L (25-40) % Hendricks % (Auto) 10.0 (3-14) % Eos % (Auto) 2.3 (2-4) % Baso % (Auto) 1.1 (0-2) % Neut # (Auto) 3500 (6013-1150) /uL Lymph # (Auto) 800 L (3034-3606) /uL Hendricks # (Auto) 500 (0-900) /uL Eos # (Auto) 100 (0-450) /uL Baso # (Auto) 100 (0-100) /uL PT 24.6 H (9.4-12.5) SECONDS INR 2.2 H (0.9-1.3) APTT 41 H (25.1-36.5) SECONDS Sodium 136 L (137-145) mmol/L Potassium 4.0 (3.4-5.1) mmol/L Chloride 100 (98-107) mmol/L Carbon Dioxide 28 (22-32) mmol/L BUN 47 H (9-20) mg/dL Creatinine 1.60 H (0.66-1.25) mg/dL Estimated GFR 42 L (>60) mL/min BUN/Creatinine Ratio 29.4 H (6-22) Glucose 104 H (70-99) mg/dL Calcium 9.2 (8.4-10.2) mg/dL Total Bilirubin 2.2 H (0.2-1.3) mg/dL AST 35 (17-59) IU/L ALT 23 (<50) IU/L Alkaline Phosphatase 129 H (38-126) U/L Total Creatine Kinase 52 L (55-170) U/L Troponin I 0.102 H 0.088 H (0.01-0.034) ng/mL Total Protein 6.4 (6.3-8.2) g/dL Albumin 3.9 (3.5-5.0) g/dL Globulin 2.5 (1.7-4.1) g/dL Albumin/Globulin Ratio 1.6 (1.0-2.8) Ethyl Alcohol < 10 ( - 10) mg/dL SARS-CoV-2 (PCR) Negative (Negative) Influenza A (RT-PCR) Flu a negative (NEGATIVE) Influenza B (RT-PCR) Flu b negative (NEGATIVE) RSV (PCR) Negative (Negative) Imaging Data CT scan - head: Radiologist's Impression: [place] [address] CT Scan Report Signed Patient: Wilfredo Lara MR#: [id number] : 1940 Acct:[id number] Age/Sex: 84 / M Date of Service: 02/08/25 Loc: ED Accession Number: [id number] Procedure: CT head/brain wo con Ordering Provider: Stan Gill D.O. PROCEDURE: CT HEAD/BRAIN WO CON INDICATIONS: dizziness, falls, on coumadin TECHNIQUE: Noncontrast 4.5 mm thick angled axial sections acquired from the foramen magnum to the vertex, with coronal and sagittal reformats. For radiation dose reduction, the following was used: automated exposure control, adjustment of mA and/or kV according to patient size. COMPARISON: [facility], CT, CT HEAD/BRAIN WO CON, 11/28/2024, 20:36. FINDINGS: Image quality: Diagnostic. CSF spaces: Basal cisterns are patent. No extra-axial fluid collections. The ventricles are symmetric in size and shape. Brain: No intracranial bleeds or mass effect. There is cerebral volume loss, with resultant ventricular and sulcal prominence. There are periventricular and deep white matter chronic small vessel ischemic changes. There is intracranial internal carotid artery atherosclerosis. Skull and face: Calvarium and visualized facial bones appear intact, without suspicious lesions. Sinuses: Visualized sinuses and mastoids are clear. IMPRESSION: No acute intracranial pathology. Dictated by: Dariusz Walker M.D. on 02/08/2025 at 20:38 Approved by: Dariusz Walker M.D. on 02/08/2025 at 20:39 [place] [address] CT Scan Report Signed Patient: Wilfredo Lara MR#: [id number] : 1940 Acct:[id number] Age/Sex: 84 / M Date of Service: 02/08/25 Loc: ED Accession Number: [id number] Procedure: CT angio head and neck Ordering Provider: Stan Gill D.O. PROCEDURE: CT ANGIO HEAD AND NECK INDICATIONS: dizziness, falls, on coumadin TECHNIQUE: After the administration of intravenous contrast, 1 mm thick sections acquired from the aortic arch through the [place] of [place]. 3-dimensional jzjvhtu-woqpxttlx-rohdjivdfs (MIP) and/or volume rendering reformats were acquired of the central intracranial vasculature and neck separately. For radiation dose reduction, the following was used: automated exposure control, adjustment of mA and/or kV according to patient size. COMPARISON: None. FINDINGS: Image quality: Diagnostic. BRAIN: CSF spaces: Ventricles are normal in size and shape. Basal cisterns are patent. No extra-axial fluid collections. Brain: No significant abnormality of the brain can be seen. Skull and face: Calvarium and facial bones appear intact, without suspicious lesions. Orbits appear normal. Sinuses: Sinuses and mastoids are clear. HEAD CT ANGIOGRAPHY: Anterior circulation: Intracranial internal carotid arteries are normal in size and flow. The flow within the paired anterior cerebral arteries is normal and symmetric. The flow within the middle cerebral arteries is normal and symmetric. The anterior communicating artery is seen. No aneurysms are seen. 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 No evidence of rupture. Flow within the posterior cerebral arteries is normal and symmetric. No aneurysms are seen. NECK CT ANGIOGRAPHY: Carotid system: The great vessels demonstrate a conventional anatomy as they arise from the aortic arch. The origins of the common carotid arteries appear patent. The common carotid arteries demonstrate normal caliber and courses. The bifurcation regions are both widely patent. The internal carotid arteries demonstrate normal calibers and courses. Posterior circulation: The origins of the vertebral arteries both appear widely patent. The more superior extracranial portions of both vertebral arteries also demonstrate normal courses and calibers. They join to form a normal appearing basilar artery. Soft tissues: Small right pleural effusion. Trace fluid within the pericardiac recess. Bones: No suspicious bony lesions. Visualized cervical spine appears normally aligned. 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 Unclear clinical significance but probably an incidental finding. No significant abnormality is seen within the arteries of the neck. Any quantitative measurements of stenosis were performed using NASCET criteria. Dictated by: Dariusz Walker M.D. on 02/08/2025 at 20:40 Approved by: Dariusz Walker M.D. on 02/08/2025 at 20:44 ECG Data Interpretation: AFib HR 84 QRS 66 QT 430 Indeterminate axis Indeterminate HI low voltage NO st-t wave change Unchanged from 01/27/25 [facility] Narrative Medical decision making narrative: All lab work, EKG, chest x-ray, CT scans, previous ER visits, imaging studies, vital signs, nurse triage note, medication list all reviewed. Case was discussed with the [facility] neurologist Dr. 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 She reviewed the films with me and stated there was no yenny aneurysm no treatment no vascular compromise of the brainstem no flow issues and that this should not be contributing to his dizziness. Patient was orthostatic and given lactated ringer 500 mL bolus here. Stitches were removed from his right lower extremity for which he started to have weeping fluid expressed spontaneously for which a pressure dressing was placed. Differential diagnosis includes CVA, subarachnoid hemorrhage, epidural, subdural, vertigo, mass, tumor, orthostatic hypotension. Will have patient follow up with his PCP for which he has missed 2 appointments already next week. Discharge Plan Departure Patient Disposition: Home Clinical Impression: Orthostatic hypotension, Acute kidney injury, Dizziness Prescriptions: No Action warfarin 5 mg tablet 5 mg PO .COMPLEX Qty: 70 3RF Protocol: Dose Management Condition: Tuesday Dose/Route: 2.5 mg Instruction: 0.5 x 5 mg tablets Condition: Tuesday Dose/Route: 2.5 mg Instruction: 0.5 x 5 mg tablets Condition: Tuesday Dose/Route: 2.5 mg Instruction: 0.5 x 5 mg tablets Condition: Tuesday Dose/Route: 2.5 mg Instruction: 0.5 x 5 mg tablets Condition: Dose/Route: 2.5 mg Instruction: 0.5 x 5 mg tablets Condition: Tuesday Dose/Route: 2.5 mg Instruction: 0.5 x 5 mg tablets Condition: Tuesday Dose/Route: 2.5 mg Instruction: 0.5 x 5 mg tablets Protocol Text: Adjustment Start Date: Tuesday01/28/25 INR Value: 2.5 INR Date: 01/27/25 Recheck Date: 02/11/25 Rx Instructions: Take 5 mg orally (1 tab) Tuesday and Tuesday; 2.5 mg (1/2 tab) all other days or as directed. allopurinol 300 mg tablet 300 mg PO DAILY Qty: 90 3RF potassium chloride 20 mEq tablet extended release 20 meq PO DAILY Qty: 180 3RF tamsulosin 0.4 mg capsule 0.4 mg PO DAILY Qty: 90 3RF fluticasone propionate [Flonase Allergy Relief] 50 mcg/actuation spray,suspension 1 spray intranasal DAILY PRN (Reason: allergy symptoms) Rx Instructions: administer into each nostril metoprolol succinate 25 mg tablet extended release 24 hr 25 mg PO BID atorvastatin 40 mg tablet 40 mg PO BEDTIME clopidogrel 75 mg tablet 75 mg PO DAILY Jardiance 10 mg tablet 10 mg PO DAILY pantoprazole 40 mg tablet,delayed release (DR/EC) 40 mg PO DAILY loperamide 2 mg capsule 2 mg PO DAILY PRN (Reason: fecal incontinence) Referrals: Stan Rizo MD [Primary Care Provider] - Stand Alone Forms: Patient Portal/API/Survey
[2025-02-08 20:15] LABS: Add Manual Diff / Slide Review NO; Basophils Absolute Auto 100 /uL (0-100); Basophils Percent Auto 1.1 % (0-2); Eosinophils Absolute Auto 100 /uL (0-450); Eosinophils Percent Auto 2.3 % (2-4); Hemoglobin 11.8 g/dL (13.5-17.5); Lymphocytes Absolute Auto 800 /uL (1100-4500); Lymphocytes Percent Auto 15.3 % (25-40); Mean Corpuscular HGB Conc 33.7 % (30-36); Mean Corpuscular Hemoglobin 33.9 PG (26-34); Mean Corpuscular Volume 100.5 fL (80-100); Monocytes Absolute Auto 500 /uL (0-900); Neutrophils Absolute Auto 3500 /uL (1500-7000); Neutrophils Percent Auto 71.3 % (50-75); Platelet Count 178 X10^3/uL (150-400); Red Blood Cell Count 3.49 X10^6/uL (4.5-5.9); White Blood Cell Count 4.9 X10^3/uL (4.5-11.0)
[2025-02-08 20:20] LABS: INR 2.2 (0.9-1.3); Prothrombin Time 24.6 SECONDS (9.4-12.5)
[2025-02-08 20:22] LABS: PTT Partial Thromboplastin Tim 41 SECONDS (25.1-36.5)
[2025-02-08 20:25] LABS: Alanine Aminotransferase 23 IU/L (<50); Albumin 3.9 g/dL (3.5-5.0); Albumin Globulin Ratio 1.6 (1.0-2.8); Alkaline Phosphatase 129 U/L (38-126); Aspartate Aminotransferase 35 IU/L (17-59); BUN Creatinine Ratio 29.4 (6-22); Bilirubin Total 2.2 mg/dL (0.2-1.3); Blood Urea Nitrogen 47 mg/dL (9-20); Calcium 9.2 mg/dL (8.4-10.2); Carbon Dioxide 28 mmol/L (22-32); Chloride 100 mmol/L (98-107); Creatine Kinase 52 U/L (55-170); Estimated Glomerular Filt Rate 42 mL/min (>60); Ethanol (ETOH) < 10 mg/dL; Globulin 2.5 g/dL (1.7-4.1); Glucose 104 mg/dL (70-99); HEMOLYSIS < 15 (0-50); Sodium 136 mmol/L (137-145); Total Protein 6.4 g/dL (6.3-8.2)
[2025-02-08 20:36] LABS: Troponin I 0.102 ng/mL (0.01-0.034)
[2025-02-08] MEDS: LACTATED RINGERS 500 ML IV (21:10)
[2025-02-08 21:23] LABS: COVID-19 CEPHEID 4-PLEX PCR Negative (Negative); Influenza A - CEPHEID Flu A NEGATIVE (NEGATIVE); Influenza B - CEPHEID Flu B NEGATIVE (NEGATIVE); Respiratory Syncytial Virus Negative (Negative)
[2025-02-08 22:41] LABS: Troponin I 0.088 ng/mL (0.01-0.034)
[2025-02-09] VITALS: BP 122/78; PULSE 77; RESP 38; O2SAT 95
[2025-02-09 00:30] VITALS: BP 112/71; PULSE 88; RESP 46; O2SAT 97
[2025-02-09 00:59] VITALS: PULSE 71; RESP 44; O2SAT 97
[2025-02-09 01:00] VITALS: BP 104/71; PULSE 78; RESP 18; O2SAT 96
--- NOTE | 2025-02-09 01:00 | PC.NURSE ---
Patient discharged. Unable to get him a ride home so he will stay in the room until tomorrow morning when we can get a taxi for him
[2025-02-09 05:54] VITALS: BP 113/74; PULSE 72; RESP 14; O2SAT 96
== END 2025-02-09 05:55 | disposition home or self-care (01) ==
PROVIDERS: Emergency Provider Family Medicine; Family Provider Internal Medicine; PCP Internal Medicine
DX: I95.1 Orthostatic hypotension (principal); N17.9 Acute kidney failure, unspecified; R42 Dizziness and giddiness; Z86.79 Personal history of other diseases of the circulatory system; Z95.5 Presence of coronary angioplasty implant and graft; I48.91 Unspecified atrial fibrillation; Z79.01 Long term (current) use of anticoagulants; I25.10 Atherosclerotic heart disease of native coronary artery without angina pectoris
CPT/HCPCS: 0241U; 36415; 70450; 70496; 70498; 80053; 80320; 82550; 84484; 85025; 85610; 85730; 93005; 93010; 96360; 99284; Q9967

== ENCOUNTER → 2025-03-25 09:36 | Outpatient (CLI) | payer MEDICARE, SELFPAY ==
[2025-03-25 10:55] LABS: Add Manual Diff / Slide Review NO; Basophils Absolute Auto 100 /uL (0-100); Basophils Percent Auto 1.3 % (0-2); Eosinophils Absolute Auto 200 /uL (0-450); Eosinophils Percent Auto 3.8 % (2-4); Hematocrit 36.2 % (41-53); Hemoglobin 12.6 g/dL (13.5-17.5); Lymphocytes Absolute Auto 900 /uL (1100-4500); Lymphocytes Percent Auto 16.8 % (25-40); Mean Corpuscular HGB Conc 34.9 % (30-36); Mean Corpuscular Hemoglobin 34.1 PG (26-34); Mean Corpuscular Volume 97.5 fL (80-100); Monocytes Absolute Auto 600 /uL (0-900); Monocytes Percent Auto 12.2 % (3-14); Neutrophils Absolute Auto 3400 /uL (1500-7000); Neutrophils Percent Auto 65.9 % (50-75); Platelet Count 233 X10^3/uL (150-400); Red Blood Cell Count 3.71 X10^6/uL (4.5-5.9); Red Cell Distribution Width 14.5 % (11.6-14.8); White Blood Cell Count 5.2 X10^3/uL (4.5-11.0)
[2025-03-25 11:16] LABS: Free T4, Direct Thyroxine 2.17 ng/dL (0.78-2.19)
[2025-03-25 11:30] LABS: Thyroid Stimulating Hormone 3.15 uIU/mL (0.47-4.68)
== END ==
PROVIDERS: Family Provider Internal Medicine; PCP Internal Medicine; Referring Provider Internal Medicine; Visit Provider Internal Medicine
DX: I48.21 Permanent atrial fibrillation (principal)
CPT/HCPCS: 36415; 84439; 84443; 85025

== ENCOUNTER → 2025-07-02 14:25 | Outpatient (CLI) | payer MEDICARE, SELFPAY ==
[2025-07-02 17:27] LABS: Blood Urea Nitrogen 26 mg/dL (9-20); Calcium 9.1 mg/dL (8.4-10.2); Carbon Dioxide 31 mmol/L (22-32); Chloride 99 mmol/L (98-107); Estimated Glomerular Filt Rate > 60 mL/min (>60); Glucose 110 mg/dL (70-99); HEMOLYSIS < 15 (0-50); Potassium 3.8 mmol/L (3.4-5.1); Sodium 139 mmol/L (137-145)
== END ==
PROVIDERS: Family Provider Internal Medicine; PCP Internal Medicine; Referring Provider Internal Medicine; Visit Provider Internal Medicine
DX: I42.9 Cardiomyopathy, unspecified (principal)
CPT/HCPCS: 36415; 80048

== ENCOUNTER 2025-09-25 18:08 | Emergency (ER) | payer MEDICARE, SELFPAY ==
[2025-09-25 18:17] VITALS: BP 101/60; PULSE 70; RESP 20; TEMP 36.3; O2SAT 97; BMI 23.0
--- NOTE | 2025-09-25 18:27 | ED_ITS ---
HPI - General Adult General Chief complaint: Fall Stated complaint: GLF Time Seen by Provider: 09/25/25 18:26 History of Present Illness HPI narrative: 85-year-old male with history of atrial fibrillation and chronic anticoagulation, was bringing home groceries, tripped on entry way in his garage into home elevator, fell predominantly to the right side, complains of right shoulder pain, has small laceration and pain to his right elbow, please see might have hit his head, no loss of consciousness. No numbness weakness to face arm or leg. Denies nausea or vomiting. Related Data Home Medications ?Medication ?Instructions ?Recorded ?Confirmed fluticasone propionate 50 1 spray intranasal DAILY PRN 10/28/22 07/19/25 mcg/actuation nasal allergy symptoms spray,suspension (Flonase Allergy Relief) loperamide 2 mg capsule 2 mg PO DAILY PRN fecal 11/1707/19/25 incontinence atorvastatin 40 mg tablet 40 mg PO BEDTIME 11/20/24 clopidogrel 75 mg tablet 75 mg PO DAILY 11/20/2401/08 empagliflozin 10 mg tablet 10 mg PO DAILY 11/20/2401/08 (Jardiance) pantoprazole 40 mg tablet,delayed 40 mg PO DAILY 11/2007/19/25 release bumetanide 1 mg tablet 1 mg PO DAILY edema, diureti c 06/28/25 07/19/25 metoprolol tartrate 37.5 mg tablet 37.5 mg PO DAILY 07/19/25 Previous Rx's ?Medication ?Instructions ?Recorded allopurinol 300 mg tablet 300 mg PO DAILY #90 tabs potassium chloride 20 mEq 20 meq PO DAILY #180 tabs tablet,extended release tamsulosin 0.4 mg capsule 0.4 mg PO DAILY #90 caps warfarin 5 mg tablet 5 mg PO .COMPLEX #70 tabs hydrocodone 5 mg-acetaminophen 325 1 tab PO Q6H PRN pa in #10 tabs 09/26/25 mg tablet Allergies Allergy/AdvReac Type Severity Reaction Status Date / Time empagliflozin (From AdvReac Intermediate weight gain Verified 09/25/25 18:17 Jardiance) Patient History Medical History (Updated 09/26/25 @ 00:13 by Michael Govea MD) Right heart failure Severe tricuspid regurgitation Coronary artery disease (~10/2024) Ventral hernia Cardiomyopathy Presence of cardiac device Easy bruisability Edema Nonsustained ventricular tachycardia Anemia Peripheral edema Vision disorder Seasonal allergies (~2009) Gout (~1996) Mumps Measles Herpes Chicken pox Hearing loss (~1971) Kidney stones (~2009) Fecal incontinence (~2014) Low testosterone (~2011) Hypertension (~2006) Atrial fibrillation (~2006) Prostate cancer (~2011) Melanoma (~2017) Surgical History (Updated 10/31/24 @ 07:55 by Stan Rizo MD) S/P coronary artery stent placement (~10/2024) S/P repair of ventral hernia (~03/2023) Carcinoma (~2016) History of rotator cuff surgery (~1994) Family History Father Cancer Hypertension Sister Stomach problems Grandfather Lung disease Grandmother No problems noted. Social History marital status: household members: spouse lives independently: Yes occupational status: previously employed Smoking Status: Never smoker alcohol intake: current substance use type: does not use alcohol intake frequency: 0-2 drinks per day Alcohol type: wine Exam Narrative Exam Narrative: GENERAL: Well-developed patient, in mild distress. HEAD: Atraumatic. Normocephalic. EYES: Pupils equal round and reactive. Extraocular motions intact. No scleral icterus. No injection or drainage. ENT: Nose without bleeding, purulent drainage. Throat without erythema, tonsillar hypertrophy or exudate. Airway patent. NECK: Trachea midline. Non tender CARDIOVASCULAR: Regular rate and rhythm without murmurs, gallops, or rubs. RESPIRATORY: Clear to auscultation. Breath sounds equal bilaterally. No wheezes, rales, or rhonchi. GASTROINTESTINAL: Abdomen soft, non-tender, nondistended. EXTREMITIES: Tenderness to upper right humerus, no anterior fullness. Avulsion laceration to right elbow, without gross deformity. No obvious tenderness to mid humerus, nor to mid distal forearm to wrist, hand, fingers. BACK: Nontender without deformity or crepitance. No flank tenderness. NEURO: AOx3. Motor functions grossly nonfocal. SKIN: No rash or erythema of visible areas Initial Vital Signs Initial Vital Signs: Vital Signs Temperature 97.4 F L 09/25/25 18:17 Pulse Rate 70 09/25/25 18:17 Respiratory Rate 20 09/25/25 18:17 Blood Pressure 101/60 09/25/25 18:17 Pulse Oximetry 97 09/25/25 18:17 Oxygen Delivery Method Room Air 09/25/25 18:17 Course Orders Ordered: ED Orders 09/25/25 21:20 Troponin I Stat 09/26/25 00:15 Consult to [facility] Stat Discontinued Medications Hydrocodone Bitart/Acetaminophen (Hydrocodone/Acet 5/325 Tablet) 1 tab PO NOW ONE Stop: 09/25/25 22:08 Last Admin: 09/25/25 23:04 Dose: 1 tab Documented By: ESTHER Hydrocodone Bitart/Acetaminophen (Hydrocodone/Acet 5/325 Prepack) 1 bottle MISC DIRECTED ONE Stop: 09/25/25 23:58 Last Admin: 09/26/25 01:04 Dose: 1 bottle Documented By: ESTHER Sodium Chloride (Normal Saline 0.9%) 1,000 mls @ 500 mls/hr IV BOLUS ONE Stop: 09/25/25 23:04 Last Infusion: 09/26/25 00:38 Dose: Infused Documented By: Admin: 09/25/25 21:43 Dose: 500 mls/hr Documented By: ESTHER Morphine Sulfate (Morphine 4 Mg/Ml Inj) 4 mg IV NOW ONE Stop: 09/25/25 20:32 Last Admin: 09/25/25 20:36 Dose: 4 mg Documented By: BO Vital Signs Vital signs: Vital Signs - 8 hr 09/26/25 02:50 Temperature 97.8 F Pulse Rate 76 Respiratory Rate 20 Blood Pressure 112/62 Pulse Oximetry 96 Oxygen Delivery Method Room Air Medical Decision Making Lab Data Lab results reviewed: Yes I reviewed the patient's lab results. Lab results narrative: White blood cell count 5900, hemoglobin 12.4, platelets adequate. Glucose 129. BUN 30 with creatinine 1.08, serum CO2 and electrolytes normal. Mild elevation of total bilirubin and alkaline phosphatase, transaminases normal. Lipase normal. Troponin 0.115 upper limit normal, history of prior troponin elevations noted as well. BNP 3730 also elevated, further elevated in the past as well. Ethanol negative. 09/25/25 18:18 09/25/25 18:18 Labs: Lab Results 09/25/25 09/25/25 Range/Units 18:18 21:20 WBC 5.9 (4.5-11.0) X10^3/uL RBC 3.95 L (4.5-5.9) X10^6/uL Hgb 12.4 L (13.5-17.5) g/dL Hct 36.4 L (41-53) % MCV 92.2 (80-100) fL MCH 31.4 (26-34) PG MCHC 34.1 (30-36) % RDW 15.9 H (11.6-14.8) % Plt Count 223 (150-400) X10^3/uL Neut % (Auto) 66.6 (50-75) % Lymph % (Auto) 22.3 L (25-40) % [place] % (Auto) 8.6 (3-14) % Eos % (Auto) 2.1 (2-4) % Baso % (Auto) 0.4 (0-2) % Neut # (Auto) 3900 (0988-7278) /uL Lymph # (Auto) 1300 (4980-0458) /uL [place] # (Auto) 500 (0-900) /uL Eos # (Auto) 100 (0-450) /uL Baso # (Auto) 0 (0-100) /uL Sodium 138 (137-145) mmol/L Potassium 3.9 (3.4-5.1) mmol/L Chloride 100 (98-107) mmol/L Carbon Dioxide 30 (22-32) mmol/L BUN 31 H (9-20) mg/dL Creatinine 1.08 (0.66-1.25) mg/dL Estimated GFR > 60 (>60) mL/min BUN/Creatinine Ratio 28.7 H (6-22) Glucose 129 H (70-99) mg/dL Lactate 2.0 (0.7-2.1) mmol/L Calcium 9.0 (8.4-10.2) mg/dL Total Bilirubin 1.8 H (0.2-1.3) mg/dL AST 44 (17-59) IU/L ALT 27 (<50) IU/L Alkaline Phosphatase 161 H (38-126) U/L Troponin I 0.115 H 0.095 H (0.01-0.034) ng/mL NT-Pro-B Natriuret Pep 3730 H (<450) pg/mL Total Protein 7.1 (6.3-8.2) g/dL Albumin 4.0 (3.5-5.0) g/dL Globulin 3.1 (1.7-4.1) g/dL Albumin/Globulin Ratio 1.3 (1.0-2.8) Lipase 236 (23-300) U/L Ethyl Alcohol < 10 (<10) mg/dL Imaging Data CT scan - head: Radiologist's Impression: [address] [address] [address] Scan Report Signed Patient: Wilfredo Lara MR#: [id number] : 1940 Acct:[id number] Age/Sex: 85 / M Date of Service: 09/25/25 Loc: ED Accession Number: [id number] Procedure: CT head/brain wo con Ordering Provider: Michael Govea MD PROCEDURE: CT HEAD/BRAIN WO CON INDICATIONS: GLF TECHNIQUE: Noncontrast 4.5 mm thick angled axial sections acquired from the foramen magnum to the vertex, with coronal and sagittal reformats. For radiation dose reduction, the following was used: automated exposure control, adjustment of mA and/or kV according to patient size. COMPARISON: [facility], CT, CT HEAD/BRAIN WO CON, 02/08/2025, 20:08. [facility], CT, CT HEAD/BRAIN WO CON, 11/28/2024, 20:36. FINDINGS: Image quality: Diagnostic. CSF spaces: Basal cisterns are patent. No extra-axial fluid collections. The ventricles are symmetric in size and shape. Brain: No acute intracranial hemorrhage or mass effect. There is cerebral volume loss, with resultant ventricular and sulcal prominence. There are periventricular and deep white matter chronic small vessel ischemic changes. There is intracranial internal carotid artery atherosclerosis. Skull and face: Calvarium and visualized facial bones appear intact, without suspicious lesions. Sinuses: Visualized sinuses and mastoids are clear. IMPRESSION: No acute intracranial pathology. Approved by: Reilly Bonilla M.D. on 09/25/2025 at 18:58 CT - cervical spine: Radiologist's Impression: [address] [address] [address] Scan Report Signed Patient: Wilfredo Lara MR#: [id number] : 1940 Acct:[id number] Age/Sex: 85 / M Date of Service: 09/25/25 Loc: ED Accession Number: [id number] Procedure: CT cervical spine wo con Ordering Provider: Michael Govea MD PROCEDURE: CT CERVICAL SPINE WO CON INDICATIONS: GLF TECHNIQUE: Noncontrast 3 mm thick sections acquired from the skull base to the T4 level. Sagittal and coronal reformats were then constructed. For radiation dose reduction, the following was used: automated exposure control, adjustment of mA and/or kV according to patient size. COMPARISON: [facility], CT, CT CERVICAL SPINE WO CON, 11/28/2024, 20:36. [facility], CT, CT CERVICAL SPINE WO CON, 06/06/2020, 13:06. FINDINGS: Image quality: Excellent. Bones: No acute fractures or dislocations. Visualized superior ribs are intact. Generalized bony demineralization. Multilevel disc space narrowing and degenerative endplate changes. Multilevel uncovertebral joint and facet hypertrophy. Soft tissues: Prevertebral soft tissues are normal in thickness. No paravertebral hematomas. No apical pneumothoraces. IMPRESSION: No acute displaced fracture or traumatic subluxation. Approved by: Reilly Bonilla M.D. on 09/25/2025 at 19:00 Chest x-ray: Radiologist's Impression: [facility] [address] [place] [id number] XRay Report Signed Patient: Wilfredo Lara MR#: [id number] : 1940 Acct:[id number] Age/Sex: 85 / M Date of Service: 09/25/25 Loc: ED Accession Number: [id number] Procedure: XR chest 1V Ordering Provider: Michael Govea MD PROCEDURE: XR CHEST 1V INDICATIONS: GLF TECHNIQUE: One view of the chest was acquired. COMPARISON: Merged With [facility], CT, CT CHEST WITH CONTRAST, 06/10/2025, 20:20. Merged With [facility], CR, XR CHEST 1 VIEW, 06/09/2025, 16:34. [facility], CR, XR CHEST 1V, 01/27/2025, 15:24. [facility], CR, XR CHEST 1V, 11/28/2024, 19:34. FINDINGS: Surgical changes and devices: Electronic device projects over the central chest. Lungs and pleura: Lungs are clear. No pleural effusions or pneumothorax. Mediastinum: Stable marked enlargement of the cardiac silhouette. Bones and chest wall: No suspicious bony lesions. Overlying soft tissues appear unremarkable. IMPRESSION: Stable marked enlargement of the cardiac silhouette. No acute cardiopulmonary abnormality is seen. Approved by: Reilly Bonilla M.D. on 09/25/2025 at 19:26 Extremity x-ray #1: Radiologist's Impression: [address] [address] XRay Report Signed Patient: Wilfredo Lara MR#: [id number] : 1940 Acct:[id number] Age/Sex: 85 / M Date of Service: 09/25/25 Loc: ED Accession Number: [id number] Procedure: XR shoulder RT 2+ views Ordering Provider: Michael Govea MD PROCEDURE: XR SHOULDER RT MIN 2V INDICATIONS: fall R shoulder pain TECHNIQUE: 2 views of the shoulder were acquired. COMPARISON: None. FINDINGS: Bones: Comminuted mildly displaced fracture of the proximal humeral shaft. The humeral head articular surface is poorly evaluated due to positioning. Soft tissues: No suspicious soft tissue calcifications. IMPRESSION: Comminuted mildly displaced fracture of the proximal humeral shaft. Approved by: Reilly Bonilla M.D. on 09/25/2025 at 19:29 Extremity x-ray #2: Radiologist's Impression: [address] [address] XRay Report Signed Patient: Wilfredo Lara MR#: [id number] : 1940 Acct:[id number] Age/Sex: 85 / M Date of Service: 09/25/25 Loc: ED Accession Number: [id number] Procedure: XR elbow RT min 3V Ordering Provider: Michael Govea MD PROCEDURE: XR ELBOW RT MIN 3V INDICATIONS: fall, elbow pain TECHNIQUE: 2 views of the elbow were acquired. COMPARISON: None. FINDINGS: Bones: Suboptimal positioning. No acute fractures or dislocations. No suspicious bony lesions. Soft tissues: No true lateral view to evaluate for joint effusion. Suspected chondrocalcinosis. IMPRESSION: No acute osseous abnormality. If there is continued clinical concern or persistent symptoms, repeat radiographs or cross-sectional imaging (e.g. CT, MRI) may be helpful for further evaluation. Approved by: Reilly Bonilla M.D. on 09/25/2025 at 19:28 CTA chest PE protocol: Radiologist's Impression: [address] [address] [address] Scan Report Signed Patient: Wilfredo Lara MR#: [id number] : 1940 Acct:[id number] Age/Sex: 85 / M Date of Service: 09/25/25 Loc: ED Accession Number: [id number] Procedure: CT angio chest PE protocol Ordering Provider: Michael Govea MD PROCEDURE: CT ANGIO CHEST PE PROTOCOL INDICATIONS: elev trop, eval for PE TECHNIQUE: After the administration of intravenous contrast, 2 mm thick sections acquired from the pulmonary apices to the posterior costophrenic angles. 3-dimensional maximum intensity projection (MIP) coronal and sagittal reformats were then acquired through the thorax. For radiation dose reduction, the following was used: automated exposure control, adjustment of mA and/or kV according to patient size. COMPARISON: None. FINDINGS: Image quality: Diagnostic. Pulmonary arteries: Pulmonary arteries are normal in size, and demonstrate no intraluminal filling defects to suggest central pulmonary embolism. Lower Neck: No enlarged lymph nodes. Thyroid: 2 cm right thyroid nodule. Axillae: No enlarged lymph nodes. Chest Wall: Unremarkable. Bones: Unremarkable. Lungs and Pleura: Smooth interstitial thickening. Bibasilar atelectasis. Mild central bronchial thickening. No consolidation. No effusions. Juxtapleural nodules with smooth margins, favoring benign intrapulmonary lymph nodes. Heart: Marked cardiomegaly. Bulky three-vessel coronary calcifications. Moderate pericardial effusion. No evidence of cardiac tamponade. Thoracic Vessels: No aortic aneurysm. Mediastinum and Michelle: No enlarged lymph nodes. Esophagus: No wall thickening. No hiatal hernia. Upper Abdomen: Separately dictated. IMPRESSION: No pulmonary embolus. Three-vessel coronary calcifications, which are bulky. Moderate pulmonary edema without pleural effusions. Marked cardiomegaly with a moderate pericardial effusion. No CT evidence of cardiac tamponade. 2 cm right thyroid nodule. Recommend outpatient thyroid ultrasound for further characterization. Dictated by: Dariusz Walker M.D. on 09/25/2025 at 20:24 Approved by: Dariusz Walker M.D. on 09/25/2025 at 20:27 CT scan - abdomen/pelvis: Radiologist's Impression: [address] [address] [address] Scan Report Signed Patient: Wilfredo Lara MR#: [id number] : 1940 Acct:[id number] Age/Sex: 85 / M Date of Service: 09/25/25 Loc: ED Accession Number: [id number] Procedure: CT abdomen pelvis w con Ordering Provider: Michael Govea MD PROCEDURE: CT ABDOMEN PELVIS W CON INDICATIONS: left and right hip pain after fall TECHNIQUE: After the administration of intravenous contrast, axial sections acquired from the lung bases to the pubic symphysis. Coronal and sagittal reformats were performed. For radiation dose reduction, the following was used: automated exposure control, adjustment of mA and/or kV according to patient size. COMPARISON: [facility], CT, CT ABDOMEN PELVIS W CON, 10/13/2023, 13:00. FINDINGS: Image quality: Diagnostic. Lower Chest: Separately dictated. ABDOMEN: Liver: Cirrhosis. Single phase contrast evaluation is suboptimal for detection of hepatocellular carcinoma. No large mass identified. Patent portal vein. Gallbladder: Cholelithiasis without wall thickening or adjacent fat stranding to suggest acute cholecystitis. Biliary ducts: No biliary dilation. Pancreas: No ductal dilation. Spleen: Size is within normal limits. Adrenal Glands: No adrenal nodules. Kidneys and Ureters: No hydronephrosis. No solid mass. No complex renal cystic lesion which requires follow up. Stomach and Bowel: Normal colonic caliber, without significant wall thickening. Large colonic stool load and rectal stool load. Colonic diverticulosis without evidence of diverticulitis. The appendix is borderline dilated at 9 mm. Wall thickness measures 2 mm. No periappendiceal fat stranding. Peritoneum: No abnormal intraperitoneal fluid. No free air. Ventral Wall: Wide-mouth ventral hernia containing nonobstructed large and small bowel. Abdominal Nodes: No retroperitoneal or mesenteric adenopathy by size criteria. Vessels: Aorta and inferior vena cava are normal in size. PELVIS: Pelvic Organs: Prostate is small, with brachytherapy clips present.. Bladder: No bladder wall thickening, accounting for underdistention. Pelvic Nodes: No enlarged lymph nodes. Miscellaneous: No inguinal hernias are seen. Bones: No aggressive osseous abnormality. 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 Decreased bone mineralization. Chronic appearing compression deformity of the L1 vertebral body, new from and 2022. No acute, displaced fracture. IMPRESSION: No displaced fracture. Appendix is borderline dilated, without secondary evidence of acute appendicitis. Correlate with right lower quadrant pain. Other ancillary findings as above. Dictated by: Dariusz Walker M.D. on 09/25/2025 at 20:19 Approved by: Dariusz Walker M.D. on 09/25/2025 at 20:24 ECG Data Attestation: I personally reviewed and interpreted this ECG as follows: Interpretation: 1939, atrial fibrillation with ventricular rate response 80, no obvious ST segment elevation or depression changes. Low voltage throughout noted. QRS 112, QTC 498. MDM Narrative Medical decision making narrative: 85-year-old male with history of atrial fibrillation on chronic anticoagulation, had mechanical fall tripping on entry way to garage while carrying groceries, struck head, no loss of consciousness, predominance of pain right shoulder, also pain right and left hip, right elbow area with avulsion laceration. Does not believe that he lost consciousness. No nausea or vomiting. No focal numbness or weakness. CT head, cervical spine, chest x-ray, x-rays right shoulder and right elbow. Lab data: White blood cell count 5900, hemoglobin 12.4, platelets adequate. Glucose 129. BUN 30 with creatinine 1.08, serum CO2 and electrolytes normal. Mild elevation of total bilirubin and alkaline phosphatase, transaminases normal. Lipase normal. Troponin 0.115 upper limit normal, history of prior troponin elevations noted as well. BNP 3730 also elevated, further elevated in the past as well. Ethanol negative. CT head no acute changes, senescent changes. See radiology report. CT cervical spine, no acute bony changes. See radiology report. Chest x-ray no acute changes, however there was no mention of right proximal humerus fracture that was noted on dedicated right shoulder x-rays. See radiology report. Right shoulder x-ray, no dislocation but mildly displaced humeral head fracture noted. See radiology report. Right elbow x-ray series, no obvious fracture/dislocation. See radiology report. Initial troponin upper limit normal range, elevated in the past. We will add CTA chest with CT abdomen and pelvis imaging. CTA chest PE protocol. IMPRESSION: No pulmonary embolus. Three-vessel coronary calcifications, which are bulky. Moderate pulmonary edema without pleural effusions. Marked cardiomegaly with a moderate pericardial effusion. No CT evidence of cardiac tamponade. 2 cm right thyroid nodule. Recommend outpatient thyroid ultrasound for further characterization. See radiology report. CT abdomen and pelvis. IMPRESSION: No displaced fracture. Appendix is borderline dilated, without secondary evidence of acute appendicitis. Correlate with right lower quadrant pain. See radiology report. Patient informed no blood clot changes, moderate fluid, Modic cardiomegaly, moderate pericardial effusion without CT tamponade evidence, incidental right thyroid nodule noted needs further workup as an outpatient. On CT scan patient has borderline dilated appendix, but does not have tenderness or abdominal pain on examination. No acute abdominal changes to explain his fall, or sequelae of fall. Right elbow local wound care, irrigation of avulsion, with Steri-Strips. Placed in right shoulder sling. IV morphine 4 mg for pain control, decreased blood pressure, 500 cc fluid bolus given. Blood pressure improved. Records review. Echocardiogram report 03/06/2024. Impression: Ejection fraction estimated 35-40%. Apical hypokinesis. Interventricular septum is flattened, consistent with a right ventricular volume overload condition. Diastolic function could not be accurately assessed due to atrial fibrillation. Right ventricle severely dilated. Right ventricular systolic function moderately reduced. Severe biatrial enlargement. [id number] mitral regurgitation. Mild aortic regurgitation. Severe tricuspid regurgitation. Pulmonary artery systolic blood pressure under estimated due to severity of TR. Ascending aorta moderately enlarged 4.6 cm. Compared to prior study 04/2023 the right ventricle is more dilated and there is increase in tricuspid regurgitation. There is also mention of small pericardial effusion. Await repeat troponin and discussion of disposition plan. Repeat trop 0.09 decreasing. 2330, case discussed with cardiology [facility] Dr. 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 Zhu to see if the severe TR needs to be treated, possible clip treatment candidate. She thinks that patient from a cardiology standpoint can go home, and follow up with Dr. Reynaga as planned, amarilis procedure is still to be scheduled. Patient tolerated placement of sling right shoulder. Was able to take oral fluids. Was able to ambulate. Discharged home with family. Follow up with Orthopedic surgery [facility] for proximal humeral fracture management Discharge Plan Departure Patient Disposition: Home Clinical Impression: Fall from ground level, Fracture of proximal end of humerus, Laceration of elbow, Chronic pericardial effusion, Tricuspid regurgitation, Elevated troponin, Thyroid nodule Activity Restrictions/Additional Instructions: History of severe tricuspid regurgitation, awaiting consultation trans esophageal echocardiogram [facility] in [place], for possible tricuspid valve treatment, and further evaluation also of known moderate pericardial effusion. Today with mechanical like ground level fall, tripping while carrying groceries. Right shoulder and right elbow pain, with small avulsion type superficial left elbow skin flap laceration. X-ray elbow without obvious fracture/dislocation. There is a proximal humerus (upper arm bone) fracture, placed in shoulder sling, follow up with Orthopedic surgery advised. Blood testing showed elevation of troponin, however in similar range to have in the past, repeat troponin was decreasing and not increasing. CT angiogram of the chest showed pericardial effusion moderate size. Incidental thyroid nodule was noted, which needs further workup as an outpatient. CT abdomen of the pelvis showed no acute abdominopelvic problems. Case was discussed with [facility] on-call, who was able to review prior records, moderate pericardial effusion also noted May 2025 earlier this year on echocardiogram, and also has been mentioned on previous CT imaging. Repeat troponin was decreasing. Cardiology on-call did not feel like we needed further workup tonight, felt that you can follow up with your [place] cardiologists for transesophageal echocardiogram as planned. Further workup as an outpatient for now. You were able to tolerate the sling well. Pain medication given hydrocodone/acetaminophen, which you have taken in the past, home pack dose also provided, with prescription sent to your requested pharmacy. Follow up with Orthopedic surgery later this week or early next week. Follow up with Cardiology as planned. Continue your other chronic medications for now. Return to this/nearest emergency department for any change worsening symptoms or concerns prior. Prescriptions: New hydrocodone-acetaminophen 5-325 mg tablet 1 tab PO Q6H PRN (Reason: pain) Qty: 10 0RF No Action allopurinol 300 mg tablet 300 mg PO DAILY Qty: 90 3RF potassium chloride 20 mEq tablet extended release 20 meq PO DAILY Qty: 180 3RF tamsulosin 0.4 mg capsule 0.4 mg PO DAILY Qty: 90 3RF warfarin 5 mg tablet 5 mg PO .COMPLEX Qty: 70 3RF Protocol: Dose Management Condition: Tuesday Dose/Route: 2.5 mg Instruction: 0.5 x 5 mg tablets Condition: Tuesday Dose/Route: 2.5 mg Instruction: 0.5 x 5 mg tablets Condition: Tuesday Dose/Route: 2.5 mg Instruction: 0.5 x 5 mg tablets Condition: Tuesday Dose/Route: 2.5 mg Instruction: 0.5 x 5 mg tablets Condition: Dose/Route: 2.5 mg Instruction: 0.5 x 5 mg tablets Condition: Tuesday Dose/Route: 2.5 mg Instruction: 0.5 x 5 mg tablets Condition: Tuesday Dose/Route: 2.5 mg Instruction: 0.5 x 5 mg tablets Protocol Text: Adjustment Start Date: Tuesday08/14/25 INR Value: 2.0 INR Date: 08/14/25 Recheck Date: 08/28/25 Rx Instructions: Take 5 mg orally (1 tab) Tuesday and Tuesday; 2.5 mg (1/2 tab) all other days or as directed. bumetanide 1 mg tablet 1 mg PO DAILY metoprolol tartrate 37.5 mg tablet 37.5 mg PO DAILY Rx Instructions: Dr. Gonzalez / [facility] fluticasone propionate [Flonase Allergy Relief] 50 mcg/actuation spray,suspension 1 spray intranasal DAILY PRN (Reason: allergy symptoms) Rx Instructions: administer into each nostril atorvastatin 40 mg tablet 40 mg PO BEDTIME clopidogrel 75 mg tablet 75 mg PO DAILY Jardiance 10 mg tablet 10 mg PO DAILY pantoprazole 40 mg tablet,delayed release (DR/EC) 40 mg PO DAILY loperamide 2 mg capsule 2 mg PO DAILY PRN (Reason: fecal incontinence) Referrals: Stan Rizo MD [Primary Care Provider, Internal Medicine] Elfego Manzano MD [Physician, Orthopedics] Stand Alone Forms: Patient Portal/API
[2025-09-25 18:32] LABS: Add Manual Diff / Slide Review NO; Hematocrit 36.4 % (41-53); Hemoglobin 12.4 g/dL (13.5-17.5); Lymphocytes Absolute Auto 1300 /uL (1100-4500); Mean Corpuscular HGB Conc 34.1 % (30-36); Mean Corpuscular Hemoglobin 31.4 PG (26-34); Mean Corpuscular Volume 92.2 fL (80-100); Platelet Count 223 X10^3/uL (150-400)
--- NOTE | 2025-09-25 18:32 | DI.RAD.S_ITS ---
PROCEDURE: XR SHOULDER RT MIN 2V INDICATIONS: fall R shoulder pain TECHNIQUE: 2 views of the shoulder were acquired. COMPARISON: None. FINDINGS: Bones: Comminuted mildly displaced fracture of the proximal humeral shaft. The humeral head articular surface is poorly evaluated due to positioning. Soft tissues: No suspicious soft tissue calcifications. IMPRESSION: Comminuted mildly displaced fracture of the proximal humeral shaft. Approved by: Reilly Bonilla M.D. on 09/25/2025 at 19:29
--- NOTE | 2025-09-25 18:32 | DI.RAD.S_ITS ---
PROCEDURE: XR ELBOW RT MIN 3V INDICATIONS: fall, elbow pain TECHNIQUE: 2 views of the elbow were acquired. COMPARISON: None. FINDINGS: Bones: Suboptimal positioning. No acute fractures or dislocations. No suspicious bony lesions. Soft tissues: No true lateral view to evaluate for joint effusion. Suspected chondrocalcinosis. IMPRESSION: No acute osseous abnormality. If there is continued clinical concern or persistent symptoms, repeat radiographs or cross-sectional imaging (e.g. CT, MRI) may be helpful for further evaluation. Approved by: Reilly Bonilla M.D. on 09/25/2025 at 19:28
[2025-09-25 18:38] LABS: Alanine Aminotransferase 27 IU/L (<50); Albumin 4.0 g/dL (3.5-5.0); Albumin Globulin Ratio 1.3 (1.0-2.8); Alkaline Phosphatase 161 U/L (38-126); Blood Urea Nitrogen 31 mg/dL (9-20); Calcium 9.0 mg/dL (8.4-10.2); Carbon Dioxide 30 mmol/L (22-32); Chloride 100 mmol/L (98-107); Estimated Glomerular Filt Rate > 60 mL/min (>60); Globulin 3.1 g/dL (1.7-4.1); Glucose 129 mg/dL (70-99); HEMOLYSIS < 15 (0-50); Lipase 236 U/L (23-300); Potassium 3.9 mmol/L (3.4-5.1); Sodium 138 mmol/L (137-145); Total Protein 7.1 g/dL (6.3-8.2)
[2025-09-25 18:41] LABS: Lactate (Lactic Acid) 2.0 mmol/L (0.7-2.1)
[2025-09-25 18:43] LABS: Ethanol (ETOH) < 10 mg/dL (<10)
[2025-09-25 18:50] LABS: NT-proBNP (BNP-Adult 18+) 3730 pg/mL (<450); Troponin I 0.115 ng/mL (0.01-0.034)
--- NOTE | 2025-09-25 19:22 | DI.CT.S_ITS ---
PROCEDURE: CT ABDOMEN PELVIS W CON INDICATIONS: left and right hip pain after fall TECHNIQUE: After the administration of intravenous contrast, axial sections acquired from the lung bases to the pubic symphysis. Coronal and sagittal reformats were performed. For radiation dose reduction, the following was used: automated exposure control, adjustment of mA and/or kV according to patient size. COMPARISON: [facility], CT, CT ABDOMEN PELVIS W CON, 10/13/2023, 13:00. FINDINGS: Image quality: Diagnostic. Lower Chest: Separately dictated. ABDOMEN: Liver: Cirrhosis. Single phase contrast evaluation is suboptimal for detection of hepatocellular carcinoma. No large mass identified. Patent portal vein. Gallbladder: Cholelithiasis without wall thickening or adjacent fat stranding to suggest acute cholecystitis. Biliary ducts: No biliary dilation. Pancreas: No ductal dilation. Spleen: Size is within normal limits. Adrenal Glands: No adrenal nodules. Kidneys and Ureters: No hydronephrosis. No solid mass. No complex renal cystic lesion which requires follow up. Stomach and Bowel: Normal colonic caliber, without significant wall thickening. Large colonic stool load and rectal stool load. Colonic diverticulosis without evidence of diverticulitis. The appendix is borderline dilated at 9 mm. Wall thickness measures 2 mm. No periappendiceal fat stranding. Peritoneum: No abnormal intraperitoneal fluid. No free air. Ventral Wall: Wide-mouth ventral hernia containing nonobstructed large and small bowel. Abdominal Nodes: No retroperitoneal or mesenteric adenopathy by size criteria. Vessels: Aorta and inferior vena cava are normal in size. PELVIS: Pelvic Organs: Prostate is small, with brachytherapy clips present.. Bladder: No bladder wall thickening, accounting for underdistention. Pelvic Nodes: No enlarged lymph nodes. Miscellaneous: No inguinal hernias are seen. Bones: No aggressive osseous abnormality. 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 Decreased bone mineralization. Chronic appearing compression deformity of the L1 vertebral body, new from 2022. No acute, displaced fracture. IMPRESSION: No displaced fracture. Appendix is borderline dilated, without secondary evidence of acute appendicitis. Correlate with right lower quadrant pain. Other ancillary findings as above. Dictated by: Dariusz Walker M.D. on 09/25/2025 at 20:19 Approved by: Dariusz Walker M.D. on 09/25/2025 at 20:24
--- NOTE | 2025-09-25 19:37 | EKG_ITS ---
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
--- NOTE | 2025-09-25 19:41 | DI.CT.S_ITS ---
PROCEDURE: CT ANGIO CHEST PE PROTOCOL INDICATIONS: elev trop, eval for PE TECHNIQUE: After the administration of intravenous contrast, 2 mm thick sections acquired from the pulmonary apices to the posterior costophrenic angles. 3-dimensional maximum intensity projection (MIP) coronal and sagittal reformats were then acquired through the thorax. For radiation dose reduction, the following was used: automated exposure control, adjustment of mA and/or kV according to patient size. COMPARISON: None. FINDINGS: Image quality: Diagnostic. Pulmonary arteries: Pulmonary arteries are normal in size, and demonstrate no intraluminal filling defects to suggest central pulmonary embolism. Lower Neck: No enlarged lymph nodes. Thyroid: 2 cm right thyroid nodule. Axillae: No enlarged lymph nodes. Chest Wall: Unremarkable. Bones: Unremarkable. Lungs and Pleura: Smooth interstitial thickening. Bibasilar atelectasis. Mild central bronchial thickening. No consolidation. No effusions. Juxtapleural nodules with smooth margins, favoring benign intrapulmonary lymph nodes. Heart: Marked cardiomegaly. Bulky three-vessel coronary calcifications. Moderate pericardial effusion. No evidence of cardiac tamponade. Thoracic Vessels: No aortic aneurysm. Mediastinum and Michelle: No enlarged lymph nodes. Esophagus: No wall thickening. No hiatal hernia. Upper Abdomen: Separately dictated. IMPRESSION: No pulmonary embolus. Three-vessel coronary calcifications, which are bulky. Moderate pulmonary edema without pleural effusions. Marked cardiomegaly with a moderate pericardial effusion. No CT evidence of cardiac tamponade. 2 cm right thyroid nodule. Recommend outpatient thyroid ultrasound for further characterization. Dictated by: Dariusz Walker M.D. on 09/25/2025 at 20:24 Approved by: Dariusz Walker M.D. on 09/25/2025 at 20:27
[2025-09-25] MEDS: MORPHINE 4 MG/ML INJ IV (20:36)
[2025-09-25 20:58] VITALS: BP 109/66; PULSE 74; RESP 22; O2SAT 93
[2025-09-25] MEDS: SODIUM CHLORIDE 0.9% 1,000 ML 500 ML IV (21:43)
[2025-09-25 22:02] LABS: Troponin I 0.095 ng/mL (0.01-0.034)
--- NOTE | 2025-09-26 01:40 | W.PC.EDHO ---
Pt to be transported home by [facility]. ETA [id number]
[2025-09-26 02:50] VITALS: BP 112/62; PULSE 76; RESP 20; TEMP 36.6; O2SAT 96
== END 2025-09-26 02:53 | disposition home or self-care (01) ==
PROVIDERS: Emergency Provider Emergency Medicine; Family Provider Internal Medicine; PCP Internal Medicine
DX: S42.291A Other displaced fracture of upper end of right humerus, initial encounter for closed fracture (principal); S51.011A Laceration without foreign body of right elbow, initial encounter; S09.90XA Unspecified injury of head, initial encounter; I48.91 Unspecified atrial fibrillation; I31.39 Other pericardial effusion (noninflammatory); I07.1 Rheumatic tricuspid insufficiency; R79.89 Other specified abnormal findings of blood chemistry; E04.1 Nontoxic single thyroid nodule; M25.552 Pain in left hip; M25.551 Pain in right hip; W01.0XXA Fall on same level from slipping, tripping and stumbling without subsequent striking against object, initial encounter; Z79.01 Long term (current) use of anticoagulants
CPT/HCPCS: 36415; 70450; 71045; 71275; 72125; 73030; 73080; 74177; 80053; 80320; 83605; 83690; 83880; 84484; 85025; 93005; 96374; 99284; J2272; J7030; Q9967

== ENCOUNTER 2025-09-28 14:36 | Emergency (ER) | payer MEDICARE, SELFPAY ==
[2025-09-28] VITALS (147 sets, daily range): BP systolic 67–193; BP diastolic 37–119; PULSE 0–223; RESP 12–59; TEMP 34.6–38.1; O2SAT 93–100
--- NOTE | 2025-09-28 14:33 | EKG_ITS ---
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
--- NOTE | 2025-09-28 14:35 | DI.CT.S_ITS ---
PROCEDURE: CT HEAD/BRAIN WO CON INDICATIONS: found down TECHNIQUE: Noncontrast 4.5 mm thick angled axial sections acquired from the foramen magnum to the vertex, with coronal and sagittal reformats. For radiation dose reduction, the following was used: automated exposure control, adjustment of mA and/or kV according to patient size. COMPARISON: [facility], CT, CT HEAD/BRAIN WO CON, 09/25/2025, 18:28. FINDINGS: Image quality: Diagnostic. CSF spaces: Basal cisterns are patent. No extra-axial fluid collections. The ventricles are symmetric in size and shape. Brain: No intracranial bleeds or mass effect. There is cerebral volume loss, with resultant ventricular and sulcal prominence. There are periventricular and deep white matter chronic small vessel ischemic changes. There is intracranial internal carotid artery atherosclerosis. Skull and face: Calvarium and visualized facial bones appear intact, without suspicious lesions. Sinuses: Visualized sinuses and mastoids are clear. IMPRESSION: No acute intracranial pathology. Dictated by: Brody Cruz M.D. on 09/28/2025 at 14:55 Approved by: Brody Cruz M.D. on 09/28/2025 at 14:55
--- NOTE | 2025-09-28 14:35 | DI.CT.S_ITS ---
PROCEDURE: CT ANGIO CHEST PE PROTOCOL INDICATIONS: hypoxia TECHNIQUE: After the administration of intravenous contrast, 2 mm thick sections acquired from the pulmonary apices to the posterior costophrenic angles. 3-dimensional maximum intensity projection (MIP) coronal and sagittal reformats were then acquired through the thorax. For radiation dose reduction, the following was used: automated exposure control, adjustment of mA and/or kV according to patient size. COMPARISON: [facility], CT, CT ANGIO CHEST PE PROTOCOL, 09/25/2025, 19:44. FINDINGS: Image quality: Diagnostic. Pulmonary arteries: Pulmonary arteries are normal in size, and demonstrate no intraluminal filling defects to suggest central pulmonary embolism. Lower Neck: No enlarged lymph nodes. Thyroid: 2 cm right thyroid lobe nodule. Axillae: No enlarged lymph nodes. Chest Wall: Anasarca.. Bones: Findings of DISH. Diffuse osseous demineralization. Again seen comminuted fracture of the right humeral surgical neck.. Lungs and Pleura: No pneumothorax or pleural effusions. No consolidation. No effusion. Dependent atelectasis in the posterior left lower lobe secondary to cardiomegaly. Decreased smooth interlobular septal thickening. Heart: Heart size is severely enlarged with biatrial enlargement. Changes of coronary artery stenting.. Small to moderate pericardial effusion. Thoracic Vessels: Ectasia of the ascending thoracic aorta, measures 4.6 cm, previously 4.6 cm 3 days ago. Mediastinum and Michelle: No enlarged lymph nodes. Esophagus: No wall thickening. No hiatal hernia. Upper Abdomen: Separately dictated IMPRESSION: 1. No pulmonary embolus. 2. Severe cardiomegaly with decreased mild interstitial pulmonary edema. 3. Stable small to moderate pericardial effusion. No CT cardiac tamponade. 4. Unchanged ectasia of the ascending thoracic aorta. Recommend follow-up CT chest angiogram in 12 months. 5. Right thyroid lobe 2 cm nodule, recommend follow-up outpatient thyroid ultrasound for further characterization. Dictated by: Brody Cruz M.D. on 09/28/2025 at 15:15 Approved by: Brody Cruz M.D. on 09/28/2025 at 15:24
--- NOTE | 2025-09-28 14:35 | DI.CT.S_ITS ---
PROCEDURE: CT ABDOMEN PELVIS W CON INDICATIONS: ab pain TECHNIQUE: After the administration of intravenous contrast, axial sections acquired from the lung bases to the pubic symphysis. Coronal and sagittal reformats were performed. For radiation dose reduction, the following was used: automated exposure control, adjustment of mA and/or kV according to patient size. COMPARISON: [facility], CT, CT ANGIO CHEST ABDOMEN PELVIS, 11/28/2024, 20:36. [facility], CT, CT ABDOMEN PELVIS W CON, 09/25/2025, 19:39. FINDINGS: Image quality: Diagnostic. Lower Chest: Separately dictated. ABDOMEN: Liver: No solid mass. Gallbladder: Punctate 2 mm stones in the gallbladder lumen. No gallbladder wall thickening. No pericholecystic edema. Biliary ducts: No biliary dilation. Pancreas: No ductal dilation. Spleen: Size is within normal limits. Adrenal Glands: No adrenal nodules. Kidneys and Ureters: No hydronephrosis. No solid mass. No complex renal cystic lesion which requires follow up. Stomach and Bowel: Gastric mural thickening which may be secondary to underdistention versus possible gastritis.. Diverticulosis without diverticulitis. Nonvisualized appendix. The bowel is normal in caliber without findings of obstruction. Peritoneum: No abnormal intraperitoneal fluid. No free air. Ventral Wall: Broad-based abdominal wall defect, which measures up to 6.9 cm in diameter mild with anterior herniation of the omental fat and several loops of nondilated bowel. Abdominal Nodes: No retroperitoneal or mesenteric adenopathy by size criteria. Vessels: Aorta and inferior vena cava are normal in size. PELVIS: Pelvic Organs: Radiation seeds in the prostate. Bladder: Decompressed by Cook catheter with excreted contrast in the bladder lumen. Pelvic Nodes: No enlarged lymph nodes. Miscellaneous: No inguinal hernias are seen. Anasarca with more confluent edema along the midline to right mid abdomen, correlate for overlying soft tissue cellulitis versus dependent edema. Fat stranding along the bilateral gluteal soft tissues, concerning for decubitus ulcers. No discrete fluid collection. Bones: No aggressive osseous abnormality. Compression deformity of L1, results in 25% central and anterior vertebral body height loss. This fracture is indeterminate in age, new when compared to November. Chronic compression deformities of L3 and L4. Multilevel degenerative changes of the lumbar spine. IMPRESSION: 1. Anasarca with more confluent edema along the right posterior mid abdominal wall, concerning for adjacent cellulitis and dependent edema. More focal possible partial cyst along the posterior gluteus soft tissues. Recommend correlation with physical exam findings. No deep abscess. 2. Gastric wall thickening which may be secondary to underdistention or possible gastritis, correlate with clinical symptoms. 3. Diverticulosis without diverticulitis. 4. Punctate cholelithiasis without CT findings of acute cholecystitis. 5. Age indeterminate compression fracture of L1 results in 25% central anterior vertebral body height loss. This is new when compared to November. No retropulsed bony fragment or significant spinal canal stenosis at this level. Dictated by: Brody Cruz M.D. on 09/28/2025 at 14:55 Approved by: Brody Cruz M.D. on 09/28/2025 at 15:10
--- NOTE | 2025-09-28 14:38 | ED_ITS ---
HPI - Altered Mental Status <Silva Downs, DO - Last Filed: 09/29/25 10:24> General Chief Complaint: Unresponsive Stated Complaint: Found Down Time Seen by Provider: 09/28/25 14:37 History of Present Illness HPI narrative: hronic patient is a 85-year-old male history of atrial fibrillation on chronic anticoagulation presenting today has a found down. EMS reports that they were production operations engineer for someone else in the house when they found him unresponsive in the bathroom. It is unclear how long he had been there but based on the bodily fluids they found around and they suspect 12-24 hours. There was initial thought of intubation however with IV fluids and an epi drip patient started to come around and speak a little bit more. He was seen evaluated here on September 25 after a ground level fall. He had a full workup including blood work and ultimately a CT scan. He has a mildly displaced comminuted humeral shaft fracture. He also had a CT chest with an elevated troponin he was found to have three-vessel coronary calcifications and a moderate pericardial effusion without evidence of tamponade. Ultimately cardiology was called at [facility] in regards to the posterior pericardial effusion is found that he also had a pericardial effusion in May of 2025 this was thought to not be new would need further evaluation with a amarilis with his epic kaleidoscope analyst. Today he is hypotensive, requiring vasopressors. He became more awake alert oriented very dry in his mucous membranes, has a very large right shoulder hematoma Related Data Home Medications ?Medication ?Instructions ?Recorded ?Confirmed fluticasone propionate 50 1 spray intranasal DAILY PRN 10/28/22 07/19/25 mcg/actuation nasal allergy symptoms spray,suspension (Flonase Allergy Relief) loperamide 2 mg capsule 2 mg PO DAILY PRN fecal 11/1707/19/25 incontinence atorvastatin 40 mg tablet 40 mg PO BEDTIME 11/20/24 clopidogrel 75 mg tablet 75 mg PO DAILY 11/20/2401/08 empagliflozin 10 mg tablet 10 mg PO DAILY 11/20/2401/08 (Jardiance) pantoprazole 40 mg tablet,delayed 40 mg PO DAILY 11/2007/19/25 release bumetanide 1 mg tablet 1 mg PO DAILY edema, diureti c 06/28/25 07/19/25 metoprolol tartrate 37.5 mg tablet 37.5 mg PO DAILY 07/19/25 Previous Rx's ?Medication ?Instructions ?Recorded allopurinol 300 mg tablet 300 mg PO DAILY #90 tabs potassium chloride 20 mEq 20 meq PO DAILY #180 tabs tablet,extended release tamsulosin 0.4 mg capsule 0.4 mg PO DAILY #90 caps warfarin 5 mg tablet 5 mg PO .COMPLEX #70 tabs hydrocodone 5 mg-acetaminophen 325 1 tab PO Q6H PRN pa in #10 tabs 09/26/25 mg tablet Allergies Allergy/AdvReac Type Severity Reaction Status Date / Time empagliflozin (From AdvReac Intermediate weight gain Verified 09/28/25 16:26 Jardiance) Patient History <Silva Downs DO - Last Filed: 09/29/25 10:24> Medical History Right heart failure Severe tricuspid regurgitation Coronary artery disease (~10/2024) Ventral hernia Cardiomyopathy Presence of cardiac device Easy bruisability Edema Nonsustained ventricular tachycardia Anemia Peripheral edema Vision disorder Seasonal allergies (~2009) Gout (~1996) Mumps Measles Herpes Chicken pox Hearing loss (~1971) Kidney stones (~2009) Fecal incontinence (~2014) Low testosterone (~2011) Hypertension (~2006) Atrial fibrillation (~2006) Prostate cancer (~2011) Melanoma (~2017) Surgical History S/P coronary artery stent placement (~10/2024) S/P repair of ventral hernia (~03/2023) Carcinoma (~2016) History of rotator cuff surgery (~1994) Family History Father Cancer Hypertension Sister Stomach problems Grandfather Lung disease Grandmother No problems noted. Social History marital status: household members: spouse lives independently: Yes occupational status: previously employed alcohol intake: current substance use type: does not use alcohol intake frequency: 0-2 drinks per day Alcohol type: wine Exam <Silva Downs DO - Last Filed: 09/29/25 10:24> Initial Vital Signs Initial Vital Signs: Vital Signs Pulse Rate 93 H 09/28/25 14:37 Pulse Oximetry 98 09/28/25 14:37 GENERAL: Alert able to follow commands HEENT: Head atraumatic,EOMI, pupils reactive, face symmetric, dry mucous membranes EARS: Tympanic membranes visualized, no erythema or bulging, no hemotympanum PHARYNX: No erythema, no tonsillar exudate, no cervical lymphadenopathy CARDIOVASCULAR: Regular rate and rhythm without murmurs, rubs or gallops. RESPIRATORY: Breath sounds equal bilaterally, no wheezes rales or rhonchi. ABDOMEN: Soft, reducible hernia appreciated soft nontender EXTREMITIES: Normal range of motion, no clubbing or edema. Neurovascularly intact NEUROLOGICAL: Asw Specialist strength equal bilaterally able to move toes follow some commands answers some questions mildly confused SKIN: Right shoulder large hematoma <Michael Govea MD - Last Filed: 09/29/25 03:26> Initial Vital Signs Initial Vital Signs: Vital Signs Pulse Rate 93 H 09/28/25 14:37 Pulse Oximetry 98 09/28/25 14:37 Procedures <Michael Govea MD - Last Filed: 09/29/25 03:26> Central Line Placement Right IJ: Time of procedure: 20:45 Time Out Performed: Yes Patient Placed on Monitor/Pulse Ox: Yes Prep: mask, gown and gloves Central Line Prep: Chlorhexidine scrub Local Anesthetic: lidocaine 1% Amount of anesthesia used (mL): 5 Ultrasound Used for Placement: Yes Central Line Lumen Inserted: triple Post Procedure: sutured in place, good blood return, all ports aspirated, flushed, capped, sterile dressing applied and line stabilization device Post Procedure X-Ray: tip of catheter in good position Patient Tolerated Procedure: Well Complications: none Course <Silva Downs DO - Last Filed: 09/29/25 10:24> Orders Ordered: Discontinued Medications Heparin Sodium (Porcine) (Heparin 5,000 Unit/Ml Vial) 4,500 unit 60 unit/kg (4500 unit) IV NOW ONE Stop: 09/28/25 18:59 Last Admin: 09/28/25 19:38 Dose: 4,500 unit Documented By: GUS Sodium Chloride (Normal Saline 0.9%) 1,000 mls @ 1,000 mls/hr IV BOLUS ONE Stop: 09/28/25 15:32 Last Infusion: 09/28/25 16:02 Dose: Infused Documented By: Admin: 09/28/25 14:42 Dose: 1,000 mls/hr Documented By: JONNY NOREPINEPHRINE BIT/0.9 % NACL (Norepinephr 4 Mg/250-0.9% Nacl) 4 mg in 250 mls @ 27.216 mls/hr IV TITRATE HEIKE; Protocol Last Titration: 09/28/25 20:00 Dose: 0.1 mcg/kg/min, 27.216 mls/hr Documented By: Titration: 09/28/25 19:54 Dose: 0.075 mcg/kg/min, 20.412 mls/hr Documented By: Titration: 09/28/25 19:35 Dose: 0 mcg/kg/min, 0 mls/hr Documented By: Titration: 09/28/25 19:16 Dose: 0.025 mcg/kg/min, 6.804 mls/hr Documented By: Titration: 09/28/25 17:04 Dose: 0 mcg/kg/min, 0 mls/hr Documented By: Titration: 09/28/25 17:01 Dose: 0.025 mcg/kg/min, 6.804 mls/hr Documented By: Titration: 09/28/25 16:44 Dose: 0.05 mcg/kg/min, 13.608 mls/hr Documented By: Titration: 09/28/25 16:06 Dose: 0.075 mcg/kg/min, 20.412 mls/hr Documented By: Admin: 09/28/25 15:30 Dose: 0.1 mcg/kg/min, 27.216 mls/hr Documented By: JONNY Piperacillin Sod/Tazobactam (Sod 4.5 gm/ Sodium Chloride) 100 mls @ 200 mls/hr IV NOW ONE Stop: 09/28/25 14:38 Last Infusion: 09/28/25 15:30 Dose: Infused Documented By: Admin: 09/28/25 15:00 Dose: 200 mls/hr Documented By: JONNY Sodium Chloride (Normal Saline 0.9%) 2,177.25 mls @ 1,451.5 mls/hr 30 ml/kg infuse over 90 min (2177.25 ml) IV NOW ONE Stop: 09/28/25 16:56 Last Infusion: 09/28/25 16:32 Dose: Infused Documented By: Admin: 09/28/25 15:37 Dose: 1,451.5 mls/hr Documented By: JONNY Sodium Chloride (Normal Saline 0.9%) 1,000 mls @ 100 mls/hr IV CONT HEIKE Last Admin: 09/28/25 16:54 Dose: 100 mls/hr Documented By: GUS Heparin Sodium/Dextrose (Heparin Drip) 25,000 unit in 500 mls @ 17.418 mls/hr IV CONT HEIKE; Protocol Last Titration: 09/28/25 20:33 Dose: 0 units/kg/hr, 0 mls/hr Documented By: GUS Co-signed By: TEE Admin: 09/28/25 19:42 Dose: 12 units/kg/hr, 17.418 mls/hr Documented By: GUS Co-signed By: LACHELLE Lorazepam (Lorazepam 2 Mg/Ml Inj) 1 mg IV NOW ONE Stop: 09/28/25 20:47 Last Admin: 09/28/25 20:48 Dose: 1 mg Documented By: GUS Vital Signs Vital signs: Vital Signs - 8 hr 09/28/25 19:44 09/28/25 19:46 09/28/25 19:46 Temperature 100.0 F H Pulse Rate 125 H Respiratory Rate 20 Blood Pressure 83/48 L 80/41 L Pulse Oximetry 100 Oxygen Delivery Method Oximask Oxygen Flow Rate 6 09/28/25 19:47 09/28/25 19:47 09/28/25 19:48 Temperature 100.0 F H Pulse Rate 108 H Respiratory Rate 24 Blood Pressure 84/46 L 85/48 L Pulse Oximetry 99 Oxygen Delivery Method Oximask Oxygen Flow Rate 6 09/28/25 19:48 09/28/25 19:49 09/28/25 19:49 Temperature 100.0 F H 100.0 F H Pulse Rate 116 H 123 H Respiratory Rate 24 Blood Pressure 81/44 L Pulse Oximetry 100 100 Oxygen Delivery Method Oximask Oximask Oxygen Flow Rate 6 6 09/28/25 19:50 09/28/25 19:50 09/28/25 19:51 Temperature 100.0 F H 100.0 F H Pulse Rate 115 H 117 H Respiratory Rate Blood Pressure 76/52 L Pulse Oximetry 99 98 Oxygen Delivery Method Oximask Oximask Oxygen Flow Rate 6 6 09/28/25 19:51 09/28/25 19:52 09/28/25 19:52 Temperature 100.0 F H Pulse Rate 127 H Respiratory Rate Blood Pressure 81/43 L 78/51 L Pulse Oximetry 98 Oxygen Delivery Method Oximask Oxygen Flow Rate 6 09/28/25 19:53 09/28/25 19:53 09/28/25 19:55 Temperature 100.0 F H 100.2 F H Pulse Rate 148 H 140 H Respiratory Rate 21 Blood Pressure 72/40 L Pulse Oximetry 95 95 Oxygen Delivery Method Oximask Oximask Oxygen Flow Rate 6 6 09/28/25 19:55 09/28/25 19:56 09/28/25 19:56 Temperature 100.0 F H Pulse Rate 122 H Respiratory Rate 16 Blood Pressure 75/45 L 72/47 L Pulse Oximetry 93 Oxygen Delivery Method Oximask Oxygen Flow Rate 6 09/28/25 19:58 09/28/25 19:58 09/28/25 19:59 Temperature 100.0 F H Pulse Rate 133 H Respiratory Rate 20 Blood Pressure 74/41 L 76/48 L Pulse Oximetry 94 Oxygen Delivery Method Oximask Oxygen Flow Rate 6 09/28/25 19:59 09/28/25 20:00 09/28/25 20:01 Temperature 100.2 F H 100.2 F H Pulse Rate 95 H 145 H Respiratory Rate 20 Blood Pressure 88/53 L Pulse Oximetry 95 98 Oxygen Delivery Method Oximask Oximask Oxygen Flow Rate 6 6 09/28/25 20:01 09/28/25 20:02 09/28/25 20:02 Temperature 100.2 F H 100.2 F H Pulse Rate 132 H 134 H Respiratory Rate 24 19 Blood Pressure 94/52 L Pulse Oximetry 98 99 Oxygen Delivery Method Oximask Ambu Bag Oxygen Flow Rate 6 6 09/28/25 20:03 09/28/25 20:03 09/28/25 20:04 Temperature 100.2 F H 100.2 F H Pulse Rate 137 H 137 H Respiratory Rate 26 H 14 Blood Pressure 97/54 L Pulse Oximetry 98 97 Oxygen Delivery Method Oximask Oximask Oxygen Flow Rate 6 6 09/28/25 20:04 09/28/25 20:06 09/28/25 20:06 Temperature 100.2 F H Pulse Rate 149 H Respiratory Rate Blood Pressure 86/53 L 131/57 L Pulse Oximetry 97 Oxygen Delivery Method Oximask Oxygen Flow Rate 6 09/28/25 20:08 09/28/25 20:08 09/28/25 20:08 Temperature 100.2 F H Pulse Rate 116 H 134 H Respiratory Rate 19 Blood Pressure 114/86 84/51 L Pulse Oximetry 97 95 Oxygen Delivery Method Oximask Oxygen Flow Rate 6 09/28/25 20:10 09/28/25 20:10 09/28/25 20:11 Temperature 100.2 F H 100.2 F H Pulse Rate 154 H 136 H Respiratory Rate Blood Pressure 100/59 L Pulse Oximetry 94 95 Oxygen Delivery Method Oximask Oximask Oxygen Flow Rate 6 6 09/28/25 20:11 09/28/25 20:14 09/28/25 20:14 Temperature 100.2 F H Pulse Rate 145 H Respiratory Rate 22 Blood Pressure 94/54 L 95/58 L Pulse Oximetry 96 Oxygen Delivery Method Ambu Bag Oxygen Flow Rate 6 09/28/25 20:15 09/28/25 20:15 09/28/25 20:16 Temperature 100.2 F H Pulse Rate 137 H Respiratory Rate 24 Blood Pressure 100/52 L 99/56 L Pulse Oximetry 96 Oxygen Delivery Method Oximask Oxygen Flow Rate 6 09/28/25 20:16 09/28/25 20:17 09/28/25 20:17 Temperature 100.2 F H 100.2 F H Pulse Rate 147 H 145 H Respiratory Rate 16 Blood Pressure 92/53 L Pulse Oximetry 97 95 Oxygen Delivery Method Oximask Oximask Oxygen Flow Rate 6 6 09/28/25 20:55 09/28/25 20:56 09/28/25 20:56 Temperature 94.3 F L Pulse Rate 161 H Respiratory Rate 20 Blood Pressure 88/57 L 95/62 Pulse Oximetry 100 Oxygen Delivery Method Oximask Oxygen Flow Rate 6 09/28/25 20:57 09/28/25 20:57 09/28/25 20:58 Temperature 97.5 F L Pulse Rate 145 H Respiratory Rate 26 H Blood Pressure 98/54 L 101/57 L Pulse Oximetry 100 Oxygen Delivery Method Ambu Bag Oxygen Flow Rate 6 09/28/25 20:58 09/28/25 21:00 09/28/25 21:00 Temperature 98.1 F 98.4 F Pulse Rate 158 H 136 H Respiratory Rate Blood Pressure 86/50 L Pulse Oximetry 100 100 Oxygen Delivery Method Oximask Oximask Oxygen Flow Rate 6 6 09/28/25 21:02 09/28/25 21:02 09/28/25 21:04 Temperature 98.8 F Pulse Rate 134 H Respiratory Rate 24 Blood Pressure 92/54 L 92/52 L Pulse Oximetry 100 Oxygen Delivery Method Oximask Oxygen Flow Rate 6 09/28/25 21:04 09/28/25 21:06 09/28/25 21:06 Temperature 99.0 F 99.1 F Pulse Rate 158 H 145 H Respiratory Rate 16 Blood Pressure 88/52 L Pulse Oximetry 100 100 Oxygen Delivery Method Oximask Oximask Oxygen Flow Rate 6 6 09/28/25 21:08 09/28/25 21:08 09/28/25 21:11 Temperature 99.3 F 99.5 F Pulse Rate 136 H 148 H Respiratory Rate 16 21 Blood Pressure 88/48 L Pulse Oximetry 100 100 Oxygen Delivery Method Oximask Oximask Oxygen Flow Rate 6 6 09/28/25 21:11 09/28/25 21:12 09/28/25 21:12 Temperature 99.7 F H Pulse Rate 157 H Respiratory Rate 31 H Blood Pressure 95/61 84/59 L Pulse Oximetry 100 Oxygen Delivery Method Oximask Oxygen Flow Rate 6 09/28/25 21:14 09/28/25 21:14 09/28/25 21:16 Temperature 99.9 F H 99.9 F H Pulse Rate 147 H 159 H Respiratory Rate 16 Blood Pressure 90/51 L Pulse Oximetry 99 98 Oxygen Delivery Method Oximask Oximask Oxygen Flow Rate 6 6 09/28/25 21:16 09/28/25 21:18 09/28/25 21:18 Temperature 99.9 F H Pulse Rate 153 H Respiratory Rate 22 Blood Pressure 86/53 L 87/55 L Pulse Oximetry 98 Oxygen Delivery Method Oximask Oxygen Flow Rate 6 09/28/25 21:20 09/28/25 21:20 09/28/25 21:22 Temperature 100.0 F H 100.0 F H Pulse Rate 158 H 165 H Respiratory Rate 59 H 22 Blood Pressure 69/49 L Pulse Oximetry 98 98 Oxygen Delivery Method Oximask Oximask Oxygen Flow Rate 6 6 09/28/25 21:22 09/28/25 21:25 09/28/25 21:25 Temperature 100.2 F H Pulse Rate 166 H Respiratory Rate 24 Blood Pressure 74/52 L 72/52 L Pulse Oximetry 97 Oxygen Delivery Method Oximask Oxygen Flow Rate 6 09/28/25 21:26 09/28/25 21:26 09/28/25 21:28 Temperature 100.2 F H 100.2 F H Pulse Rate 167 H 114 H Respiratory Rate 22 20 Blood Pressure 81/57 L Pulse Oximetry 97 96 Oxygen Delivery Method Oxygen Flow Rate 09/28/25 21:28 09/28/25 21:30 09/28/25 21:30 Temperature 100.4 F H Pulse Rate 157 H Respiratory Rate Blood Pressure 83/65 L 93/62 Pulse Oximetry 97 Oxygen Delivery Method Oxygen Flow Rate 09/28/25 21:32 09/28/25 21:32 09/28/25 21:34 Temperature 100.4 F H 100.4 F H Pulse Rate 154 H 156 H Respiratory Rate 24 Blood Pressure 99/54 L Pulse Oximetry 96 96 Oxygen Delivery Method Oxygen Flow Rate 09/28/25 21:34 09/28/25 21:36 09/28/25 21:36 Temperature 100.4 F H Pulse Rate 155 H Respiratory Rate 19 Blood Pressure 73/50 L 73/57 L Pulse Oximetry 95 Oxygen Delivery Method Oxygen Flow Rate 09/28/25 21:38 09/28/25 21:38 09/28/25 21:40 Temperature 100.4 F H Pulse Rate 137 H Respiratory Rate Blood Pressure 88/65 L 75/56 L Pulse Oximetry 96 Oxygen Delivery Method Oxygen Flow Rate 09/28/25 21:40 Temperature 100.6 F H Pulse Rate 164 H Respiratory Rate 24 Blood Pressure Pulse Oximetry 96 Oxygen Delivery Method Oxygen Flow Rate <Michael Govea MD - Last Filed: 09/29/25 03:26> Orders Ordered: Discontinued Medications Heparin Sodium (Porcine) (Heparin 5,000 Unit/Ml Vial) 4,500 unit 60 unit/kg (4500 unit) IV NOW ONE Stop: 09/28/25 18:59 Last Admin: 09/28/25 19:38 Dose: 4,500 unit Documented By: GUS Sodium Chloride (Normal Saline 0.9%) 1,000 mls @ 1,000 mls/hr IV BOLUS ONE Stop: 09/28/25 15:32 Last Infusion: 09/28/25 16:02 Dose: Infused Documented By: Admin: 09/28/25 14:42 Dose: 1,000 mls/hr Documented By: JONNY NOREPINEPHRINE BIT/0.9 % NACL (Norepinephr 4 Mg/250-0.9% Nacl) 4 mg in 250 mls @ 27.216 mls/hr IV TITRATE HEIKE; Protocol Last Titration: 09/28/25 20:00 Dose: 0.1 mcg/kg/min, 27.216 mls/hr Documented By: Titration: 09/28/25 19:54 Dose: 0.075 mcg/kg/min, 20.412 mls/hr Documented By: Titration: 09/28/25 19:35 Dose: 0 mcg/kg/min, 0 mls/hr Documented By: Titration: 09/28/25 19:16 Dose: 0.025 mcg/kg/min, 6.804 mls/hr Documented By: Titration: 09/28/25 17:04 Dose: 0 mcg/kg/min, 0 mls/hr Documented By: Titration: 09/28/25 17:01 Dose: 0.025 mcg/kg/min, 6.804 mls/hr Documented By: Titration: 09/28/25 16:44 Dose: 0.05 mcg/kg/min, 13.608 mls/hr Documented By: Titration: 09/28/25 16:06 Dose: 0.075 mcg/kg/min, 20.412 mls/hr Documented By: Admin: 09/28/25 15:30 Dose: 0.1 mcg/kg/min, 27.216 mls/hr Documented By: JONNY Piperacillin Sod/Tazobactam (Sod 4.5 gm/ Sodium Chloride) 100 mls @ 200 mls/hr IV NOW ONE Stop: 09/28/25 14:38 Last Infusion: 09/28/25 15:30 Dose: Infused Documented By: Admin: 09/28/25 15:00 Dose: 200 mls/hr Documented By: JONNY Sodium Chloride (Normal Saline 0.9%) 2,177.25 mls @ 1,451.5 mls/hr 30 ml/kg infuse over 90 min (2177.25 ml) IV NOW ONE Stop: 09/28/25 16:56 Last Infusion: 09/28/25 16:32 Dose: Infused Documented By: Admin: 09/28/25 15:37 Dose: 1,451.5 mls/hr Documented By: JONNY Sodium Chloride (Normal Saline 0.9%) 1,000 mls @ 100 mls/hr IV CONT HEIKE Last Admin: 09/28/25 16:54 Dose: 100 mls/hr Documented By: GUS Heparin Sodium/Dextrose (Heparin Drip) 25,000 unit in 500 mls @ 17.418 mls/hr IV CONT HEIKE; Protocol Last Titration: 09/28/25 20:33 Dose: 0 units/kg/hr, 0 mls/hr Documented By: GUS Co-signed By: LUCRETIAC Admin: 09/28/25 19:42 Dose: 12 units/kg/hr, 17.418 mls/hr Documented By: GUS Co-signed By: LACHELLE Lorazepam (Lorazepam 2 Mg/Ml Inj) 1 mg IV NOW ONE Stop: 09/28/25 20:47 Last Admin: 09/28/25 20:48 Dose: 1 mg Documented By: GUS Vital Signs Vital signs: Vital Signs - 8 hr 09/28/25 19:44 09/28/25 19:46 09/28/25 19:46 Temperature 100.0 F H Pulse Rate 125 H Respiratory Rate 20 Blood Pressure 83/48 L 80/41 L Pulse Oximetry 100 Oxygen Delivery Method Oximask Oxygen Flow Rate 6 09/28/25 19:47 09/28/25 19:47 09/28/25 19:48 Temperature 100.0 F H Pulse Rate 108 H Respiratory Rate 24 Blood Pressure 84/46 L 85/48 L Pulse Oximetry 99 Oxygen Delivery Method Oximask Oxygen Flow Rate 6 09/28/25 19:48 09/28/25 19:49 09/28/25 19:49 Temperature 100.0 F H 100.0 F H Pulse Rate 116 H 123 H Respiratory Rate 24 Blood Pressure 81/44 L Pulse Oximetry 100 100 Oxygen Delivery Method Oximask Oximask Oxygen Flow Rate 6 6 09/28/25 19:50 09/28/25 19:50 09/28/25 19:51 Temperature 100.0 F H 100.0 F H Pulse Rate 115 H 117 H Respiratory Rate Blood Pressure 76/52 L Pulse Oximetry 99 98 Oxygen Delivery Method Oximask Oximask Oxygen Flow Rate 6 6 09/28/25 19:51 09/28/25 19:52 09/28/25 19:52 Temperature 100.0 F H Pulse Rate 127 H Respiratory Rate Blood Pressure 81/43 L 78/51 L Pulse Oximetry 98 Oxygen Delivery Method Oximask Oxygen Flow Rate 6 09/28/25 19:53 09/28/25 19:53 09/28/25 19:55 Temperature 100.0 F H 100.2 F H Pulse Rate 148 H 140 H Respiratory Rate 21 Blood Pressure 72/40 L Pulse Oximetry 95 95 Oxygen Delivery Method Oximask Oximask Oxygen Flow Rate 6 6 09/28/25 19:55 09/28/25 19:56 09/28/25 19:56 Temperature 100.0 F H Pulse Rate 122 H Respiratory Rate 16 Blood Pressure 75/45 L 72/47 L Pulse Oximetry 93 Oxygen Delivery Method Oximask Oxygen Flow Rate 6 09/28/25 19:58 09/28/25 19:58 09/28/25 19:59 Temperature 100.0 F H Pulse Rate 133 H Respiratory Rate 20 Blood Pressure 74/41 L 76/48 L Pulse Oximetry 94 Oxygen Delivery Method Oximask Oxygen Flow Rate 6 09/28/25 19:59 09/28/25 20:00 09/28/25 20:01 Temperature 100.2 F H 100.2 F H Pulse Rate 95 H 145 H Respiratory Rate 20 Blood Pressure 88/53 L Pulse Oximetry 95 98 Oxygen Delivery Method Oximask Oximask Oxygen Flow Rate 6 6 09/28/25 20:01 09/28/25 20:02 09/28/25 20:02 Temperature 100.2 F H 100.2 F H Pulse Rate 132 H 134 H Respiratory Rate 24 19 Blood Pressure 94/52 L Pulse Oximetry 98 99 Oxygen Delivery Method Oximask Ambu Bag Oxygen Flow Rate 6 6 09/28/25 20:03 09/28/25 20:03 09/28/25 20:04 Temperature 100.2 F H 100.2 F H Pulse Rate 137 H 137 H Respiratory Rate 26 H 14 Blood Pressure 97/54 L Pulse Oximetry 98 97 Oxygen Delivery Method Oximask Oximask Oxygen Flow Rate 6 6 09/28/25 20:04 09/28/25 20:06 09/28/25 20:06 Temperature 100.2 F H Pulse Rate 149 H Respiratory Rate Blood Pressure 86/53 L 131/57 L Pulse Oximetry 97 Oxygen Delivery Method Oximask Oxygen Flow Rate 6 09/28/25 20:08 09/28/25 20:08 09/28/25 20:08 Temperature 100.2 F H Pulse Rate 116 H 134 H Respiratory Rate 19 Blood Pressure 114/86 84/51 L Pulse Oximetry 97 95 Oxygen Delivery Method Oximask Oxygen Flow Rate 6 09/28/25 20:10 09/28/25 20:10 09/28/25 20:11 Temperature 100.2 F H 100.2 F H Pulse Rate 154 H 136 H Respiratory Rate Blood Pressure 100/59 L Pulse Oximetry 94 95 Oxygen Delivery Method Oximask Oximask Oxygen Flow Rate 6 6 09/28/25 20:11 09/28/25 20:14 09/28/25 20:14 Temperature 100.2 F H Pulse Rate 145 H Respiratory Rate 22 Blood Pressure 94/54 L 95/58 L Pulse Oximetry 96 Oxygen Delivery Method Ambu Bag Oxygen Flow Rate 6 09/28/25 20:15 09/28/25 20:15 09/28/25 20:16 Temperature 100.2 F H Pulse Rate 137 H Respiratory Rate 24 Blood Pressure 100/52 L 99/56 L Pulse Oximetry 96 Oxygen Delivery Method Oximask Oxygen Flow Rate 6 09/28/25 20:16 09/28/25 20:17 09/28/25 20:17 Temperature 100.2 F H 100.2 F H Pulse Rate 147 H 145 H Respiratory Rate 16 Blood Pressure 92/53 L Pulse Oximetry 97 95 Oxygen Delivery Method Oximask Oximask Oxygen Flow Rate 6 6 09/28/25 20:55 09/28/25 20:56 09/28/25 20:56 Temperature 94.3 F L Pulse Rate 161 H Respiratory Rate 20 Blood Pressure 88/57 L 95/62 Pulse Oximetry 100 Oxygen Delivery Method Oximask Oxygen Flow Rate 6 09/28/25 20:57 09/28/25 20:57 09/28/25 20:58 Temperature 97.5 F L Pulse Rate 145 H Respiratory Rate 26 H Blood Pressure 98/54 L 101/57 L Pulse Oximetry 100 Oxygen Delivery Method Ambu Bag Oxygen Flow Rate 6 09/28/25 20:58 09/28/25 21:00 09/28/25 21:00 Temperature 98.1 F 98.4 F Pulse Rate 158 H 136 H Respiratory Rate Blood Pressure 86/50 L Pulse Oximetry 100 100 Oxygen Delivery Method Oximask Oximask Oxygen Flow Rate 6 6 09/28/25 21:02 09/28/25 21:02 09/28/25 21:04 Temperature 98.8 F Pulse Rate 134 H Respiratory Rate 24 Blood Pressure 92/54 L 92/52 L Pulse Oximetry 100 Oxygen Delivery Method Oximask Oxygen Flow Rate 6 09/28/25 21:04 09/28/25 21:06 09/28/25 21:06 Temperature 99.0 F 99.1 F Pulse Rate 158 H 145 H Respiratory Rate 16 Blood Pressure 88/52 L Pulse Oximetry 100 100 Oxygen Delivery Method Oximask Oximask Oxygen Flow Rate 6 6 09/28/25 21:08 09/28/25 21:08 09/28/25 21:11 Temperature 99.3 F 99.5 F Pulse Rate 136 H 148 H Respiratory Rate 16 21 Blood Pressure 88/48 L Pulse Oximetry 100 100 Oxygen Delivery Method Oximask Oximask Oxygen Flow Rate 6 6 09/28/25 21:11 09/28/25 21:12 09/28/25 21:12 Temperature 99.7 F H Pulse Rate 157 H Respiratory Rate 31 H Blood Pressure 95/61 84/59 L Pulse Oximetry 100 Oxygen Delivery Method Oximask Oxygen Flow Rate 6 09/28/25 21:14 09/28/25 21:14 09/28/25 21:16 Temperature 99.9 F H 99.9 F H Pulse Rate 147 H 159 H Respiratory Rate 16 Blood Pressure 90/51 L Pulse Oximetry 99 98 Oxygen Delivery Method Oximask Oximask Oxygen Flow Rate 6 6 09/28/25 21:16 09/28/25 21:18 09/28/25 21:18 Temperature 99.9 F H Pulse Rate 153 H Respiratory Rate 22 Blood Pressure 86/53 L 87/55 L Pulse Oximetry 98 Oxygen Delivery Method Oximask Oxygen Flow Rate 6 09/28/25 21:20 09/28/25 21:20 09/28/25 21:22 Temperature 100.0 F H 100.0 F H Pulse Rate 158 H 165 H Respiratory Rate 59 H 22 Blood Pressure 69/49 L Pulse Oximetry 98 98 Oxygen Delivery Method Oximask Oximask Oxygen Flow Rate 6 6 09/28/25 21:22 09/28/25 21:25 09/28/25 21:25 Temperature 100.2 F H Pulse Rate 166 H Respiratory Rate 24 Blood Pressure 74/52 L 72/52 L Pulse Oximetry 97 Oxygen Delivery Method Oximask Oxygen Flow Rate 6 09/28/25 21:26 09/28/25 21:26 09/28/25 21:28 Temperature 100.2 F H 100.2 F H Pulse Rate 167 H 114 H Respiratory Rate 22 20 Blood Pressure 81/57 L Pulse Oximetry 97 96 Oxygen Delivery Method Oxygen Flow Rate 09/28/25 21:28 09/28/25 21:30 09/28/25 21:30 Temperature 100.4 F H Pulse Rate 157 H Respiratory Rate Blood Pressure 83/65 L 93/62 Pulse Oximetry 97 Oxygen Delivery Method Oxygen Flow Rate 09/28/25 21:32 09/28/25 21:32 09/28/25 21:34 Temperature 100.4 F H 100.4 F H Pulse Rate 154 H 156 H Respiratory Rate 24 Blood Pressure 99/54 L Pulse Oximetry 96 96 Oxygen Delivery Method Oxygen Flow Rate 09/28/25 21:34 09/28/25 21:36 09/28/25 21:36 Temperature 100.4 F H Pulse Rate 155 H Respiratory Rate 19 Blood Pressure 73/50 L 73/57 L Pulse Oximetry 95 Oxygen Delivery Method Oxygen Flow Rate 09/28/25 21:38 09/28/25 21:38 09/28/25 21:40 Temperature 100.4 F H Pulse Rate 137 H Respiratory Rate Blood Pressure 88/65 L 75/56 L Pulse Oximetry 96 Oxygen Delivery Method Oxygen Flow Rate 09/28/25 21:40 Temperature 100.6 F H Pulse Rate 164 H Respiratory Rate 24 Blood Pressure Pulse Oximetry 96 Oxygen Delivery Method Oxygen Flow Rate MDM - Altered Mental Status <Silva Downs, DO - Last Filed: 09/29/25 10:24> Lab Data 09/28/25 14:37 09/28/25 14:37 Labs: Lab Results 09/28/25 09/28/25 09/28/25 Range/Units 14:37 14:43 14:50 WBC 11.2 H (4.5-11.0) X10^3/uL RBC 3.78 L (4.5-5.9) X10^6/uL Hgb 11.8 L (13.5-17.5) g/dL Hct 35.3 L (41-53) % MCV 93.4 (80-100) fL MCH 31.3 (26-34) PG MCHC 33.5 (30-36) % RDW 16.6 H (11.6-14.8) % Plt Count 190 (150-400) X10^3/uL Neut % (Auto) 86.7 H (50-75) % Lymph % (Auto) 5.9 L (25-40) % Reagan % (Auto) 7.3 (3-14) % Eos % (Auto) 0.0 L (2-4) % Baso % (Auto) 0.1 (0-2) % Neut # (Auto) 9700 H (8233-9234) /uL Lymph # (Auto) 700 L (8209-9799) /uL Reagan # (Auto) 800 (0-900) /uL Eos # (Auto) 0 (0-450) /uL Baso # (Auto) 0 (0-100) /uL PT (9.4-12.5) SECONDS INR (0.9-1.3) APTT (25.1-36.5) SECONDS ABG Sample Site Left radial ABG pH 7.39 (7.35-7.45) ABG pCO2 31.9 L (35-45) mmHg ABG pO2 71 L (80-100) mmHg ABG HCO3 19 L (23-27) mmol/L ABG Total CO2 18 L (23-27) mmol/L ABG O2 Saturation 94 L (95-100) % ABG Base Excess -5.2 L (-2-3) mmol/L Juanjo Test Positive O2 Delivery Device non rebreather FiO2 % 80.0 % % Sodium 140 (137-145) mmol/L Potassium 3.6 (3.4-5.1) mmol/L Chloride 105 (98-107) mmol/L Carbon Dioxide 22 (22-32) mmol/L BUN 54 H (9-20) mg/dL Creatinine 1.36 H (0.66-1.25) mg/dL Estimated GFR 50 L (>60) mL/min BUN/Creatinine Ratio 39.7 H (6-22) Glucose 133 H (70-99) mg/dL Lactate 4.6 H* (0.7-2.1) mmol/L Calcium 9.6 (8.4-10.2) mg/dL Total Bilirubin 4.0 H (0.2-1.3) mg/dL AST 185 H (17-59) IU/L ALT 78 H (<50) IU/L Alkaline Phosphatase 114 (38-126) U/L Ammonia (9-30) umol/L Total Creatine Kinase (55-170) U/L Troponin I (0.01-0.034) ng/mL NT-Pro-B Natriuret Pep (<450) pg/mL Total Protein 6.6 (6.3-8.2) g/dL Albumin 3.8 (3.5-5.0) g/dL Globulin 2.8 (1.7-4.1) g/dL Albumin/Globulin Ratio 1.4 (1.0-2.8) Procalcitonin 0.243 (<0.5) ng/mL Urine Color Yellow Urine Appearance Clear Urine pH 5.0 (4.5-8.0) Ur Specific [place] 1.020 (1.000-1.035) Urine Protein Trace H (Negative) Urine Glucose (UA) 3+ H (Negative) g/dL Urine Ketones Negative (NEGATIVE) Urine Occult Blood Trace-intact (Negative) Urine Nitrate Negative (Negative) Urine Bilirubin Negative (NEGATIVE) Urine Urobilinogen 0.2 (0.2) E.U./dL Ur Leukocyte Esterase Negative (NEGATIVE) Urine RBC None seen (0-5/HPF) Urine WBC None seen (0-5/HPF) Ur Squamous Epith Cells None seen (0-5/HPF) Ur Renal Epithelial Cell 1-5/hpf H (0-1/HPF) Calcium Oxalate Crystal Urine Bacteria None seen (None) Hyaline Casts 1-5/lpf (None) Ur Culture Indicated? Cult not indicated Vol Urine Centrifuged 10ml (spun) Salicylates < 1.0 (<20) mg/dL U Opiates 300ng/mL cut Positive H (Negative) Ur Oxycodone Screen Negative (Negative) Urine Methadone Screen Negative (Negative) Acetaminophen < 10 (10-30) ug/mL Ur Barbiturates Screen Negative (Negative) U Tricyclic Antidepress Negative (Negative) Ur Phencyclidine Scrn Negative (Negative) Ur Amphetamines Screen Negative (Negative) U Methamphetamines Scrn Negative (Negative) Ur MDMA Scrn (Ecstasy) Negative (Negative) U Benzodiazepines Scrn Negative (Negative) Urine Cocaine Screen Negative (Negative) U Marijuana (THC) Screen Negative (Negative) Urine Specific [place] (Normal) Ethyl Alcohol < 10 (<10) mg/dL Ur Creatinine (Normal) 09/28/25 09/28/25 09/28/25 Range/Units 14:50 16:40 17:30 WBC (4.5-11.0) X10^3/uL RBC (4.5-5.9) X10^6/uL Hgb (13.5-17.5) g/dL Hct (41-53) % MCV (80-100) fL MCH (26-34) PG MCHC (30-36) % RDW (11.6-14.8) % Plt Count (150-400) X10^3/uL Neut % (Auto) (50-75) % Lymph % (Auto) (25-40) % Reagan % (Auto) (3-14) % Eos % (Auto) (2-4) % Baso % (Auto) (0-2) % Neut # (Auto) (0965-5913) /uL Lymph # (Auto) (7089-0053) /uL Reagan # (Auto) (0-900) /uL Eos # (Auto) (0-450) /uL Baso # (Auto) (0-100) /uL PT 22.5 H (9.4-12.5) SECONDS INR 2.0 H (0.9-1.3) APTT 30 (25.1-36.5) SECONDS ABG Sample Site ABG pH (7.35-7.45) ABG pCO2 (35-45) mmHg ABG pO2 (80-100) mmHg ABG HCO3 (23-27) mmol/L ABG Total CO2 (23-27) mmol/L ABG O2 Saturation (95-100) % ABG Base Excess (-2-3) mmol/L Juanjo Test O2 Delivery Device FiO2 % % Sodium (137-145) mmol/L Potassium (3.4-5.1) mmol/L Chloride (98-107) mmol/L Carbon Dioxide (22-32) mmol/L BUN (9-20) mg/dL Creatinine (0.66-1.25) mg/dL Estimated GFR (>60) mL/min BUN/Creatinine Ratio (6-22) Glucose (70-99) mg/dL Lactate 2.4 H (0.7-2.1) mmol/L Calcium (8.4-10.2) mg/dL Total Bilirubin (0.2-1.3) mg/dL AST (17-59) IU/L ALT (<50) IU/L Alkaline Phosphatase (38-126) U/L Ammonia < 9 L (9-30) umol/L Total Creatine Kinase 2369 H (55-170) U/L Troponin I 0.390 H* (0.01-0.034) ng/mL NT-Pro-B Natriuret Pep 66750 H (<450) pg/mL Total Protein (6.3-8.2) g/dL Albumin (3.5-5.0) g/dL Globulin (1.7-4.1) g/dL Albumin/Globulin Ratio (1.0-2.8) Procalcitonin (<0.5) ng/mL Urine Color Urine Appearance Urine pH Normal (4.5-8.0) Ur Specific [place] (1.000-1.035) Urine Protein (Negative) Urine Glucose (UA) (Negative) g/dL Urine Ketones (NEGATIVE) Urine Occult Blood (Negative) Urine Nitrate (Negative) Urine Bilirubin (NEGATIVE) Urine Urobilinogen (0.2) E.U./dL Ur Leukocyte Esterase (NEGATIVE) Urine RBC (0-5/HPF) Urine WBC (0-5/HPF) Ur Squamous Epith Cells (0-5/HPF) Ur Renal Epithelial Cell (0-1/HPF) Calcium Oxalate Crystal Urine Bacteria (None) Hyaline Casts (None) Ur Culture Indicated? Vol Urine Centrifuged Salicylates (<20) mg/dL U Opiates 300ng/mL cut (Negative) Ur Oxycodone Screen (Negative) Urine Methadone Screen (Negative) Acetaminophen (10-30) ug/mL Ur Barbiturates Screen (Negative) U Tricyclic Antidepress (Negative) Ur Phencyclidine Scrn (Negative) Ur Amphetamines Screen (Negative) U Methamphetamines Scrn (Negative) Ur MDMA Scrn (Ecstasy) (Negative) U Benzodiazepines Scrn (Negative) Urine Cocaine Screen (Negative) U Marijuana (THC) Screen (Negative) Urine Specific [place] Normal (Normal) Ethyl Alcohol (<10) mg/dL Ur Creatinine Normal (Normal) 12/13/25 Range/Units 18:40 WBC (4.5-11.0) X10^3/uL RBC (4.5-5.9) X10^6/uL Hgb (13.5-17.5) g/dL Hct (41-53) % MCV (80-100) fL MCH (26-34) PG MCHC (30-36) % RDW (11.6-14.8) % Plt Count (150-400) X10^3/uL Neut % (Auto) (50-75) % Lymph % (Auto) (25-40) % Reagan % (Auto) (3-14) % Eos % (Auto) (2-4) % Baso % (Auto) (0-2) % Neut # (Auto) (3215-3991) /uL Lymph # (Auto) (5845-4507) /uL Reagan # (Auto) (0-900) /uL Eos # (Auto) (0-450) /uL Baso # (Auto) (0-100) /uL PT (9.4-12.5) SECONDS INR (0.9-1.3) APTT (25.1-36.5) SECONDS ABG Sample Site ABG pH (7.35-7.45) ABG pCO2 (35-45) mmHg ABG pO2 (80-100) mmHg ABG HCO3 (23-27) mmol/L ABG Total CO2 (23-27) mmol/L ABG O2 Saturation (95-100) % ABG Base Excess (-2-3) mmol/L Juanjo Test O2 Delivery Device FiO2 % % Sodium (137-145) mmol/L Potassium (3.4-5.1) mmol/L Chloride (98-107) mmol/L Carbon Dioxide (22-32) mmol/L BUN (9-20) mg/dL Creatinine (0.66-1.25) mg/dL Estimated GFR (>60) mL/min BUN/Creatinine Ratio (6-22) Glucose (70-99) mg/dL Lactate (0.7-2.1) mmol/L Calcium (8.4-10.2) mg/dL Total Bilirubin (0.2-1.3) mg/dL AST (17-59) IU/L ALT (<50) IU/L Alkaline Phosphatase (38-126) U/L Ammonia (9-30) umol/L Total Creatine Kinase 2477 H (55-170) U/L Troponin I 0.429 H* (0.01-0.034) ng/mL NT-Pro-B Natriuret Pep (<450) pg/mL Total Protein (6.3-8.2) g/dL Albumin (3.5-5.0) g/dL Globulin (1.7-4.1) g/dL Albumin/Globulin Ratio (1.0-2.8) Procalcitonin (<0.5) ng/mL Urine Color Urine Appearance Urine pH (4.5-8.0) Ur Specific [place] (1.000-1.035) Urine Protein (Negative) Urine Glucose (UA) (Negative) g/dL Urine Ketones (NEGATIVE) Urine Occult Blood (Negative) Urine Nitrate (Negative) Urine Bilirubin (NEGATIVE) Urine Urobilinogen (0.2) E.U./dL Ur Leukocyte Esterase (NEGATIVE) Urine RBC (0-5/HPF) Urine WBC (0-5/HPF) Ur Squamous Epith Cells (0-5/HPF) Ur Renal Epithelial Cell (0-1/HPF) Calcium Oxalate Crystal Urine Bacteria (None) Hyaline Casts (None) Ur Culture Indicated? Vol Urine Centrifuged Salicylates (<20) mg/dL U Opiates 300ng/mL cut (Negative) Ur Oxycodone Screen (Negative) Urine Methadone Screen (Negative) Acetaminophen (10-30) ug/mL Ur Barbiturates Screen (Negative) U Tricyclic Antidepress (Negative) Ur Phencyclidine Scrn (Negative) Ur Amphetamines Screen (Negative) U Methamphetamines Scrn (Negative) Ur MDMA Scrn (Ecstasy) (Negative) U Benzodiazepines Scrn (Negative) Urine Cocaine Screen (Negative) U Marijuana (THC) Screen (Negative) Urine Specific [place] (Normal) Ethyl Alcohol (<10) mg/dL Ur Creatinine (Normal) Imaging Data CT scan - head: Radiologist's Impression: PROCEDURE: CT HEAD/BRAIN WO CON INDICATIONS: found down TECHNIQUE: Noncontrast 4.5 mm thick angled axial sections acquired from the foramen magnum to the vertex, with coronal and sagittal reformats. For radiation dose reduction, the following was used: automated exposure control, adjustment of mA and/or kV according to patient size. COMPARISON: [facility], CT, CT HEAD/BRAIN WO CON, 09/25/2025, 18:28. FINDINGS: Image quality: Diagnostic. CSF spaces: Basal cisterns are patent. No extra-axial fluid collections. The ventricles are symmetric in size and shape. Brain: No intracranial bleeds or mass effect. There is cerebral volume loss, with resultant ventricular and sulcal prominence. There are periventricular and deep white matter chronic small vessel ischemic changes. There is intracranial internal carotid artery atherosclerosis. Skull and face: Calvarium and visualized facial bones appear intact, without suspicious lesions. Sinuses: Visualized sinuses and mastoids are clear. IMPRESSION: No acute intracranial pathology. Dictated by: Brody Cruz M.D. on 09/28/2025 at 14:55 CT scan - abdomen/pelvis: Radiologist's Impression: PROCEDURE: CT ABDOMEN PELVIS W CON INDICATIONS: ab pain TECHNIQUE: After the administration of intravenous contrast, axial sections acquired from the lung bases to the pubic symphysis. Coronal and sagittal reformats were performed. For radiation dose reduction, the following was used: automated exposure control, adjustment of mA and/or kV according to patient size. COMPARISON: [facility], CT, CT ANGIO CHEST ABDOMEN PELVIS, 11/28/2024, 20:36. [facility], CT, CT ABDOMEN PELVIS W CON, 09/25/2025, 19:39. FINDINGS: Image quality: Diagnostic. Lower Chest: Separately dictated. ABDOMEN: Liver: No solid mass. Gallbladder: Punctate 2 mm stones in the gallbladder lumen. No gallbladder wall thickening. No pericholecystic edema. Biliary ducts: No biliary dilation. Pancreas: No ductal dilation. Spleen: Size is within normal limits. Adrenal Glands: No adrenal nodules. Kidneys and Ureters: No hydronephrosis. No solid mass. No complex renal cystic lesion which requires follow up. Stomach and Bowel: Gastric mural thickening which may be secondary to underdistention versus possible gastritis.. Diverticulosis without diverticulitis. Nonvisualized appendix. The bowel is normal in caliber without findings of obstruction. Peritoneum: No abnormal intraperitoneal fluid. No free air. Ventral Wall: Broad-based abdominal wall defect, which measures up to 6.9 cm in diameter mild with anterior herniation of the omental fat and several loops of nondilated bowel. Abdominal Nodes: No retroperitoneal or mesenteric adenopathy by size criteria. Vessels: Aorta and inferior vena cava are normal in size. PELVIS: Pelvic Organs: Radiation seeds in the prostate. Bladder: Decompressed by Cook catheter with excreted contrast in the bladder lumen. Pelvic Nodes: No enlarged lymph nodes. Miscellaneous: No inguinal hernias are seen. Anasarca with more confluent edema along the midline to right mid abdomen, correlate for overlying soft tissue cellulitis versus dependent edema. Fat stranding along the bilateral gluteal soft tissues, concerning for decubitus ulcers. No discrete fluid collection. Bones: No aggressive osseous abnormality. Compression deformity of L1, results in 25% central and anterior vertebral body height loss. This fracture is indeterminate in age, new when compared to November. Chronic compression deformities of L3 and L4. Multilevel degenerative changes of the lumbar spine. IMPRESSION: 1. Anasarca with more confluent edema along the right posterior mid abdominal wall, concerning for adjacent cellulitis and dependent edema. More focal possible partial cyst along the posterior gluteus soft tissues. Recommend correlation with physical exam findings. No deep abscess. 2. Gastric wall thickening which may be secondary to underdistention or possible gastritis, correlate with clinical symptoms. 3. Diverticulosis without diverticulitis. 4. Punctate cholelithiasis without CT findings of acute cholecystitis. 5. Age indeterminate compression fracture of L1 results in 25% central anterior vertebral body height loss. This is new when compared to November. No retropulsed bony fragment or significant spinal canal stenosis at this level. Dictated by: Brody Cruz M.D. on 09/28/2025 at 14:55 CT scan - chest: Radiologist's Impression: PROCEDURE: CT ANGIO CHEST PE PROTOCOL INDICATIONS: hypoxia TECHNIQUE: After the administration of intravenous contrast, 2 mm thick sections acquired from the pulmonary apices to the posterior costophrenic angles. 3-dimensional maximum intensity projection (MIP) coronal and sagittal reformats were then acquired through the thorax. For radiation dose reduction, the following was used: automated exposure control, adjustment of mA and/or kV according to patient size. COMPARISON: [facility], CT, CT ANGIO CHEST PE PROTOCOL, 09/25/2025, 19:44. FINDINGS: Image quality: Diagnostic. Pulmonary arteries: Pulmonary arteries are normal in size, and demonstrate no intraluminal filling defects to suggest central pulmonary embolism. Lower Neck: No enlarged lymph nodes. Thyroid: 2 cm right thyroid lobe nodule. Axillae: No enlarged lymph nodes. Chest Wall: Anasarca.. Bones: Findings of DISH. Diffuse osseous demineralization. Again seen comminuted fracture of the right humeral surgical neck.. Lungs and Pleura: No pneumothorax or pleural effusions. No consolidation. No effusion. Dependent atelectasis in the posterior left lower lobe secondary to cardiomegaly. Decreased smooth interlobular septal thickening. Heart: Heart size is severely enlarged with biatrial enlargement. Changes of coronary artery stenting.. Small to moderate pericardial effusion. Thoracic Vessels: Ectasia of the ascending thoracic aorta, measures 4.6 cm, previously 4.6 cm 3 days ago. Mediastinum and Michelle: No enlarged lymph nodes. Esophagus: No wall thickening. No hiatal hernia. Upper Abdomen: Separately dictated IMPRESSION: 1. No pulmonary embolus. 2. Severe cardiomegaly with decreased mild interstitial pulmonary edema. 3. Stable small to moderate pericardial effusion. No CT cardiac tamponade. 4. Unchanged ectasia of the ascending thoracic aorta. Recommend follow-up CT chest angiogram in 12 months. 5. Right thyroid lobe 2 cm nodule, recommend follow-up outpatient thyroid ultrasound for further characterization. Dictated by: Brody Cruz M.D. on 09/28/2025 at 15:15 MDM Narrative Medical decision making narrative: MDM CC: Found down altered mental Complicating co-morbidities: Chronic pericardial effusion, atrial fibrillation Data collected from: EMS caregiver Medical records reviewed: Recent ED visit reviewed please see HPI Differential considered: Sepsis trauma altered mental status dehydration pulmonary embolus Exam documented above, pertinent findings include: Week dry mucous membranes large right hematoma Lab Test results independently reviewed as above. Pertinent findings: CBC leukocytosis 11.2 hemoglobin 11.8 hematocrit 35.3 which is similar to prior there is a left shift CMP electrolytes within normal limits BUN elevated at 54 creatinine 1.36 previously had a creatinine of 1.08 Lactate 4.6-->2.4 Bilirubin elevated 4.0 AST ALT 185 and 78 respectively CPK 2300 Troponin positive 0.390, BNP 82091 previously 3733 days ago Ammonia negative Independently reviewed EKG as above Very low voltage AFib versus sinus rhythm no obvious ischemia Imaging studies independently reviewed: CT head no intracranial hemorrhage CT chest no pulmonary embolus severe cardiomegaly mild pulmonary edema small to moderate pericardial effusion no tamponade 9 CT abdomen pelvis anasarca punctate cholelithiasis without CT findings of cholecystitis age indeterminate L1 compression Ultrasound right upper quadrant cholelithiasis without evidence of acute cholecystitis Consultations: 1700 Dr. Guo updated patient's symptoms test results recommends transferring for higher level of care Treatments: Sepsis fluids Levophed Re-evaluations: Able to wean off the Levophed lactic acid is improving still requiring an OxyMask but managing his airway no need for emergent intubation Discussion: Patient 85-year-old male presenting today found down unknown amount of time. Does not require intubation at this time he is able to speak in protect his airway but does require an OxyMask. He is found to have mild rhabdomyolysis with a CPK of 2300. He has an elevated lactic acid of 4.6. He was empirically treated for sepsis with IV fluids and antibiotics started on Levophed immediately. He now has an elevated troponin at 0.39 it was previously 3 days ago 0.95. He has a significantly elevated bilirubin of 4.0 which is new it was previously 1.8. Unclear etiology he has some cholelithiasis he may have choledocholithiasis as well but unclear. Liver enzymes are also elevated. Patient has multiple medical problems. Also social issues include severely demented . There is no DPOA. There is a God daughter they do not have children they did not give got daughter power of contracts attorney. However is not capable of making decisions for him. Patient has an elevated troponin rhabdo known pericardial effusion. It sounds like he is followed up [facility]. Patient is signed out to Dr. Govea for further evaluation and manage <Michael Govea MD - Last Filed: 09/29/25 03:26> Lab Data Labs: Lab Results 09/28/25 09/28/25 09/28/25 Range/Units 14:37 14:43 14:50 WBC 11.2 H (4.5-11.0) X10^3/uL RBC 3.78 L (4.5-5.9) X10^6/uL Hgb 11.8 L (13.5-17.5) g/dL Hct 35.3 L (41-53) % MCV 93.4 (80-100) fL MCH 31.3 (26-34) PG MCHC 33.5 (30-36) % RDW 16.6 H (11.6-14.8) % Plt Count 190 (150-400) X10^3/uL Neut % (Auto) 86.7 H (50-75) % Lymph % (Auto) 5.9 L (25-40) % Reagan % (Auto) 7.3 (3-14) % Eos % (Auto) 0.0 L (2-4) % Baso % (Auto) 0.1 (0-2) % Neut # (Auto) 9700 H (4745-0031) /uL Lymph # (Auto) 700 L (6910-7235) /uL Reagan # (Auto) 800 (0-900) /uL Eos # (Auto) 0 (0-450) /uL Baso # (Auto) 0 (0-100) /uL PT (9.4-12.5) SECONDS INR (0.9-1.3) APTT (25.1-36.5) SECONDS ABG Sample Site Left radial ABG pH 7.39 (7.35-7.45) ABG pCO2 31.9 L (35-45) mmHg ABG pO2 71 L (80-100) mmHg ABG HCO3 19 L (23-27) mmol/L ABG Total CO2 18 L (23-27) mmol/L ABG O2 Saturation 94 L (95-100) % ABG Base Excess -5.2 L (-2-3) mmol/L Juanjo Test Positive O2 Delivery Device non rebreather FiO2 % 80.0 % % Sodium 140 (137-145) mmol/L Potassium 3.6 (3.4-5.1) mmol/L Chloride 105 (98-107) mmol/L Carbon Dioxide 22 (22-32) mmol/L BUN 54 H (9-20) mg/dL Creatinine 1.36 H (0.66-1.25) mg/dL Estimated GFR 50 L (>60) mL/min BUN/Creatinine Ratio 39.7 H (6-22) Glucose 133 H (70-99) mg/dL Lactate 4.6 H* (0.7-2.1) mmol/L Calcium 9.6 (8.4-10.2) mg/dL Total Bilirubin 4.0 H (0.2-1.3) mg/dL AST 185 H (17-59) IU/L ALT 78 H (<50) IU/L Alkaline Phosphatase 114 (38-126) U/L Ammonia (9-30) umol/L Total Creatine Kinase (55-170) U/L Troponin I (0.01-0.034) ng/mL NT-Pro-B Natriuret Pep (<450) pg/mL Total Protein 6.6 (6.3-8.2) g/dL Albumin 3.8 (3.5-5.0) g/dL Globulin 2.8 (1.7-4.1) g/dL Albumin/Globulin Ratio 1.4 (1.0-2.8) Procalcitonin 0.243 (<0.5) ng/mL Urine Color Yellow Urine Appearance Clear Urine pH 5.0 (4.5-8.0) Ur Specific [place] 1.020 (1.000-1.035) Urine Protein Trace H (Negative) Urine Glucose (UA) 3+ H (Negative) g/dL Urine Ketones Negative (NEGATIVE) Urine Occult Blood Trace-intact (Negative) Urine Nitrate Negative (Negative) Urine Bilirubin Negative (NEGATIVE) Urine Urobilinogen 0.2 (0.2) E.U./dL Ur Leukocyte Esterase Negative (NEGATIVE) Urine RBC None seen (0-5/HPF) Urine WBC None seen (0-5/HPF) Ur Squamous Epith Cells None seen (0-5/HPF) Ur Renal Epithelial Cell 1-5/hpf H (0-1/HPF) Calcium Oxalate Crystal Urine Bacteria None seen (None) Hyaline Casts 1-5/lpf (None) Ur Culture Indicated? Cult not indicated Vol Urine Centrifuged 10ml (spun) Salicylates < 1.0 (<20) mg/dL U Opiates 300ng/mL cut Positive H (Negative) Ur Oxycodone Screen Negative (Negative) Urine Methadone Screen Negative (Negative) Acetaminophen < 10 (10-30) ug/mL Ur Barbiturates Screen Negative (Negative) U Tricyclic Antidepress Negative (Negative) Ur Phencyclidine Scrn Negative (Negative) Ur Amphetamines Screen Negative (Negative) U Methamphetamines Scrn Negative (Negative) Ur MDMA Scrn (Ecstasy) Negative (Negative) U Benzodiazepines Scrn Negative (Negative) Urine Cocaine Screen Negative (Negative) U Marijuana (THC) Screen Negative (Negative) Urine Specific [place] (Normal) Ethyl Alcohol < 10 (<10) mg/dL Ur Creatinine (Normal) 09/28/25 09/28/25 09/28/25 Range/Units 14:50 16:40 17:30 WBC (4.5-11.0) X10^3/uL RBC (4.5-5.9) X10^6/uL Hgb (13.5-17.5) g/dL Hct (41-53) % MCV (80-100) fL MCH (26-34) PG MCHC (30-36) % RDW (11.6-14.8) % Plt Count (150-400) X10^3/uL Neut % (Auto) (50-75) % Lymph % (Auto) (25-40) % Reagan % (Auto) (3-14) % Eos % (Auto) (2-4) % Baso % (Auto) (0-2) % Neut # (Auto) (1074-8823) /uL Lymph # (Auto) (6150-4876) /uL Reagan # (Auto) (0-900) /uL Eos # (Auto) (0-450) /uL Baso # (Auto) (0-100) /uL PT 22.5 H (9.4-12.5) SECONDS INR 2.0 H (0.9-1.3) APTT 30 (25.1-36.5) SECONDS ABG Sample Site ABG pH (7.35-7.45) ABG pCO2 (35-45) mmHg ABG pO2 (80-100) mmHg ABG HCO3 (23-27) mmol/L ABG Total CO2 (23-27) mmol/L ABG O2 Saturation (95-100) % ABG Base Excess (-2-3) mmol/L Juanjo Test O2 Delivery Device FiO2 % % Sodium (137-145) mmol/L Potassium (3.4-5.1) mmol/L Chloride (98-107) mmol/L Carbon Dioxide (22-32) mmol/L BUN (9-20) mg/dL Creatinine (0.66-1.25) mg/dL Estimated GFR (>60) mL/min BUN/Creatinine Ratio (6-22) Glucose (70-99) mg/dL Lactate 2.4 H (0.7-2.1) mmol/L Calcium (8.4-10.2) mg/dL Total Bilirubin (0.2-1.3) mg/dL AST (17-59) IU/L ALT (<50) IU/L Alkaline Phosphatase (38-126) U/L Ammonia < 9 L (9-30) umol/L Total Creatine Kinase 2369 H (55-170) U/L Troponin I 0.390 H* (0.01-0.034) ng/mL NT-Pro-B Natriuret Pep 52431 H (<450) pg/mL Total Protein (6.3-8.2) g/dL Albumin (3.5-5.0) g/dL Globulin (1.7-4.1) g/dL Albumin/Globulin Ratio (1.0-2.8) Procalcitonin (<0.5) ng/mL Urine Color Urine Appearance Urine pH Normal (4.5-8.0) Ur Specific [place] (1.000-1.035) Urine Protein (Negative) Urine Glucose (UA) (Negative) g/dL Urine Ketones (NEGATIVE) Urine Occult Blood (Negative) Urine Nitrate (Negative) Urine Bilirubin (NEGATIVE) Urine Urobilinogen (0.2) E.U./dL Ur Leukocyte Esterase (NEGATIVE) Urine RBC (0-5/HPF) Urine WBC (0-5/HPF) Ur Squamous Epith Cells (0-5/HPF) Ur Renal Epithelial Cell (0-1/HPF) Calcium Oxalate Crystal Urine Bacteria (None) Hyaline Casts (None) Ur Culture Indicated? Vol Urine Centrifuged Salicylates (<20) mg/dL U Opiates 300ng/mL cut (Negative) Ur Oxycodone Screen (Negative) Urine Methadone Screen (Negative) Acetaminophen (10-30) ug/mL Ur Barbiturates Screen (Negative) U Tricyclic Antidepress (Negative) Ur Phencyclidine Scrn (Negative) Ur Amphetamines Screen (Negative) U Methamphetamines Scrn (Negative) Ur MDMA Scrn (Ecstasy) (Negative) U Benzodiazepines Scrn (Negative) Urine Cocaine Screen (Negative) U Marijuana (THC) Screen (Negative) Urine Specific [place] Normal (Normal) Ethyl Alcohol (<10) mg/dL Ur Creatinine Normal (Normal) 09/28/25 Range/Units 18:40 WBC (4.5-11.0) X10^3/uL RBC (4.5-5.9) X10^6/uL Hgb (13.5-17.5) g/dL Hct (41-53) % MCV (80-100) fL MCH (26-34) PG MCHC (30-36) % RDW (11.6-14.8) % Plt Count (150-400) X10^3/uL Neut % (Auto) (50-75) % Lymph % (Auto) (25-40) % Reagan % (Auto) (3-14) % Eos % (Auto) (2-4) % Baso % (Auto) (0-2) % Neut # (Auto) (1135-9767) /uL Lymph # (Auto) (9731-8358) /uL Reagan # (Auto) (0-900) /uL Eos # (Auto) (0-450) /uL Baso # (Auto) (0-100) /uL PT (9.4-12.5) SECONDS INR (0.9-1.3) APTT (25.1-36.5) SECONDS ABG Sample Site ABG pH (7.35-7.45) ABG pCO2 (35-45) mmHg ABG pO2 (80-100) mmHg ABG HCO3 (23-27) mmol/L ABG Total CO2 (23-27) mmol/L ABG O2 Saturation (95-100) % ABG Base Excess (-2-3) mmol/L Juanjo Test O2 Delivery Device FiO2 % % Sodium (137-145) mmol/L Potassium (3.4-5.1) mmol/L Chloride (98-107) mmol/L Carbon Dioxide (22-32) mmol/L BUN (9-20) mg/dL Creatinine (0.66-1.25) mg/dL Estimated GFR (>60) mL/min BUN/Creatinine Ratio (6-22) Glucose (70-99) mg/dL Lactate (0.7-2.1) mmol/L Calcium (8.4-10.2) mg/dL Total Bilirubin (0.2-1.3) mg/dL AST (17-59) IU/L ALT (<50) IU/L Alkaline Phosphatase (38-126) U/L Ammonia (9-30) umol/L Total Creatine Kinase 2477 H (55-170) U/L Troponin I 0.429 H* (0.01-0.034) ng/mL NT-Pro-B Natriuret Pep (<450) pg/mL Total Protein (6.3-8.2) g/dL Albumin (3.5-5.0) g/dL Globulin (1.7-4.1) g/dL Albumin/Globulin Ratio (1.0-2.8) Procalcitonin (<0.5) ng/mL Urine Color Urine Appearance Urine pH (4.5-8.0) Ur Specific [place] (1.000-1.035) Urine Protein (Negative) Urine Glucose (UA) (Negative) g/dL Urine Ketones (NEGATIVE) Urine Occult Blood (Negative) Urine Nitrate (Negative) Urine Bilirubin (NEGATIVE) Urine Urobilinogen (0.2) E.U./dL Ur Leukocyte Esterase (NEGATIVE) Urine RBC (0-5/HPF) Urine WBC (0-5/HPF) Ur Squamous Epith Cells (0-5/HPF) Ur Renal Epithelial Cell (0-1/HPF) Calcium Oxalate Crystal Urine Bacteria (None) Hyaline Casts (None) Ur Culture Indicated? Vol Urine Centrifuged Salicylates (<20) mg/dL U Opiates 300ng/mL cut (Negative) Ur Oxycodone Screen (Negative) Urine Methadone Screen (Negative) Acetaminophen (10-30) ug/mL Ur Barbiturates Screen (Negative) U Tricyclic Antidepress (Negative) Ur Phencyclidine Scrn (Negative) Ur Amphetamines Screen (Negative) U Methamphetamines Scrn (Negative) Ur MDMA Scrn (Ecstasy) (Negative) U Benzodiazepines Scrn (Negative) Urine Cocaine Screen (Negative) U Marijuana (THC) Screen (Negative) Urine Specific [place] (Normal) Ethyl Alcohol (<10) mg/dL Ur Creatinine (Normal) Imaging Data Chest x-ray: Radiologist's Impression: [address] [address] XRay Report Signed Patient: Wilfredo Lara MR#: [id number] : 1940 Acct:[id number] Age/Sex: 85 / M Date of Service: 09/28/25 Loc: ED Accession Number: [id number] Procedure: XR chest 1V Ordering Provider: Michael Govea MD PROCEDURE: XR CHEST 1V INDICATIONS: confirm central line placement TECHNIQUE: One view of the chest was acquired. COMPARISON: [facility], JERARDO, XR CHEST 1V, 09/25/2025, 18:36. FINDINGS: Surgical changes and devices: New right IJ central venous line is present. The just below the level of the aortic knob. There are overlying defibrillator pads and cardiac device peer Lungs and pleura: Lungs are clear. No pleural effusions or pneumothorax. Mediastinum: Stable significant cardiomegaly. Mediastinum is normal. Bones and chest wall: No suspicious bony lesions. Overlying soft tissues appear unremarkable. IMPRESSION: Placement right CVL as described. No change to heart and lungs. Dictated by: Devorah Palomares M.D. on 09/28/2025 at 22:45 Approved by: Devorah Palomares M.D. on 09/28/2025 at 22:47 MDM Narrative Medical decision making narrative: MDM CC: Found down altered mental Complicating co-morbidities: Chronic pericardial effusion, atrial fibrillation Data collected from: EMS caregiver Medical records reviewed: Recent ED visit reviewed please see HPI Differential considered: Sepsis trauma altered mental status dehydration pulmonary embolus Exam documented above, pertinent findings include: Week dry mucous membranes large right hematoma Lab Test results independently reviewed as above. Pertinent findings: CBC leukocytosis 11.2 hemoglobin 11.8 hematocrit 35.3 which is similar to prior there is a left shift CMP electrolytes within normal limits BUN elevated at 54 creatinine 1.36 previously had a creatinine of 1.08 Lactate 4.6-->2.4 Bilirubin elevated 4.0 AST ALT 185 and 78 respectively CPK 2300 Troponin positive 0.390, BNP 31096 previously 3733 days ago Ammonia negative Independently reviewed EKG as above Very low voltage AFib versus sinus rhythm no obvious ischemia Imaging studies independently reviewed: CT head no intracranial hemorrhage CT chest no pulmonary embolus severe cardiomegaly mild pulmonary edema small to moderate pericardial effusion no tamponade 9 CT abdomen pelvis anasarca punctate cholelithiasis without CT findings of cholecystitis age indeterminate L1 compression Ultrasound right upper quadrant cholelithiasis without evidence of acute cholecystitis Consultations: 1700 Dr. Guo updated patient's symptoms test results recommends transferring for higher level of care Treatments: Sepsis fluids Levophed Re-evaluations: Able to wean off the Levophed lactic acid is improving still requiring an OxyMask but managing his airway no need for emergent intubation Discussion: Patient 85-year-old male presenting today found down unknown amount of time. Does not require intubation at this time he is able to speak in protect his airway but does require an OxyMask. He is found to have mild rhabdomyolysis with a CPK of 2300. He has an elevated lactic acid of 4.6. He was empirically treated for sepsis with IV fluids and antibiotics started on Levophed immediately. He now has an elevated troponin at 0.39 it was previously 3 days ago 0.95. He has a significantly elevated bilirubin of 4.0 which is new it was previously 1.8. Unclear etiology he has some cholelithiasis he may have choledocholithiasis as well but unclear. Liver enzymes are also elevated. Patient has multiple medical problems. Also social issues include severely demented . There is no DPOA. There is a God daughter they do not have children they did not give got daughter power of contracts attorney. However is not capable of making decisions for him. Patient has an elevated troponin rhabdo known pericardial effusion. It sounds like he is followed up [facility] for Cardiology. Patient is signed out to Dr. Govea for further evaluation and manage 09/28/25, Jeferson Weaver. Sign-out from Dr. Downs. Patient with recent ground level fall and right humeral head fracture, found down tonight, soft blood pressure, possible sepsis, rising troponin, possible non STEMI, known severe TR, known pericardial effusion, needs transfer to higher level of care. 85-year-old male known to me from recent evaluation here on 09/25/2025 visit after ground level fall and acute right humeral neck fracture, had elevated troponin normal range 0.115 at that time that decreased to 0.09, had eventual imaging Chest CT at that visit showed pericardial effusion, patient seemed to be aware of prior diagnosis pericardial effusion, has history severe tricuspid regurgitation awaiting AMARILIS study and further Cardiology consultation with Dr. Nicole at [facility] for possible tricuspid valve surgery, on that ED visit 09/25/25 I spoke with [facility] cardiology Dr. Martell who felt patient could go home then with decreasing troponin, chronic appearing pericardial effusion, has had similar troponin elevations in the past, has had coronary artery intervention earlier this year, to follow-up with Dr Corey Herrera cardiology as planned. Went home 09/25/25 with right arm sling. Patient was at yard sale this afternoon when police were called due to severe agitation of , when patient was found down in the bathroom. Altered mental status. CT head negative here tonight. EKG without obvious ischemic changes, troponin 0.390 elevated from previous visit, on repeat tonight has risen further to 0.429. Was started on IV heparin after negative head scan for possible non STEMI. Blood culture sent, IV antibiotics initiated empirically. Patient was on peripheral Levophed, fluids given, blood pressure improved. Blood pressure seems to be drifting down again, MAP<65, [place] [address], hold further IVF boluses. Peripheral Levophed re- started, will transition to central line. CT angiogram chest tonight showed no PE, did show pulmonary edema and moderate pericardial effusion without tamponade physiology. CT abdomen and pelvis component showed cholelithiasis without cholecystitis changes, indeterminate L1 compression fracture. Ultrasound right upper quadrant tonight showed cholelithiasis without acute cholecystitis changes. Total bilirubin elevated noted. PCP Dr Guo contacted, who felt patient needed transfer to higher level of care. We will reach out to [facility] where he is anticipated to have Cardiology consultation and upcoming AMARILIS for possible tricuspid valve surgery and further evaluation of his chronic pericardial effusion. Assumed care. 1999, case discussed with [facility] cardiology Dr Marcus, who can consult, agrees with need for transfer, agrees with above treatments. Await call back from [facility] hospitalist. Patient has been prescribed warfarin in the past for his atrial fibrillation, INR 2.0 tonight, will stop heparin. Case discussed with [facility] communication electronic technician Dr. Ventura who accepts patient for transfer. Verbal consent from patient for right IJ central line placement, single stick using sterile technique and bedside ultrasound, ports flushed/aspirated easily with good blood return, good position catheter tip postprocedure chest x-ray, that demonstrates his known right humeral head fracture, and his prior cardiomegaly. No pneumothorax. See line placement procedure note. Will transition norepinephrine from peripheral to central line. Chest x-ray postprocedure, right IJ line placement, tip above level of right atrium, no pneumothorax, right proximal known humerus fracture again seen. My wet read. Placed in sling for his right humeral fracture. Ecchymosis changes to the right anterior shoulder and right superior trapezius, patient on chronic warfarin anticoagulation. Bed available [facility], air ambulance transport to be arranged Critical Care Time <Michael Govea MD - Last Filed: 09/29/25 03:26> Critical Care Time Critical Care Time: Yes Total Critical Care Time: 60 Attestation: The high probability of a clinically significant, sudden or life threatening deterioration of the [cardiopulmonary, neurologic, hematologic] system(s) required my full and direct attention, intervention and personal management. The aggregate critical care time was [60] minutes. This time is in addition to time spent performing reported procedures but includes the following: [x] Data Review and interpretation [x] Patient assessment and monitoring of vital signs [x] Documentation [x] Medication orders and management Discharge Plan Departure Patient Disposition: [facility] Clinical Impression: Acute non-ST elevation myocardial infarction (NSTEMI), Rhabdomyolysis, Cholelithiasis, Chronic pericardial effusion, Chronic anticoagulation, Closed right humeral fracture, Abnormal liver function test Prescriptions: No Action allopurinol 300 mg tablet 300 mg PO DAILY Qty: 90 3RF potassium chloride 20 mEq tablet extended release 20 meq PO DAILY Qty: 180 3RF tamsulosin 0.4 mg capsule 0.4 mg PO DAILY Qty: 90 3RF warfarin 5 mg tablet 5 mg PO .COMPLEX Qty: 70 3RF Protocol: Dose Management Condition: Tuesday Dose/Route: 2.5 mg Instruction: 0.5 x 5 mg tablets Condition: Tuesday Dose/Route: 2.5 mg Instruction: 0.5 x 5 mg tablets Condition: Tuesday Dose/Route: 2.5 mg Instruction: 0.5 x 5 mg tablets Condition: Tuesday Dose/Route: 2.5 mg Instruction: 0.5 x 5 mg tablets Condition: Dose/Route: 2.5 mg Instruction: 0.5 x 5 mg tablets Condition: Tuesday Dose/Route: 2.5 mg Instruction: 0.5 x 5 mg tablets Condition: Tuesday Dose/Route: 2.5 mg Instruction: 0.5 x 5 mg tablets Protocol Text: Adjustment Start Date: Tuesday08/14/25 INR Value: 2.0 INR Date: 08/14/25 Recheck Date: 08/28/25 Rx Instructions: Take 5 mg orally (1 tab) Tuesday and Tuesday; 2.5 mg (1/2 tab) all other days or as directed. bumetanide 1 mg tablet 1 mg PO DAILY metoprolol tartrate 37.5 mg tablet 37.5 mg PO DAILY Rx Instructions: Dr. Gonzalez / [facility] fluticasone propionate [Flonase Allergy Relief] 50 mcg/actuation spray,suspension 1 spray intranasal DAILY PRN (Reason: allergy symptoms) Rx Instructions: administer into each nostril atorvastatin 40 mg tablet 40 mg PO BEDTIME clopidogrel 75 mg tablet 75 mg PO DAILY Jardiance 10 mg tablet 10 mg PO DAILY pantoprazole 40 mg tablet,delayed release (DR/EC) 40 mg PO DAILY loperamide 2 mg capsule 2 mg PO DAILY PRN (Reason: fecal incontinence) hydrocodone-acetaminophen 5-325 mg tablet 1 tab PO Q6H PRN (Reason: pain) Qty: 10 0RF Referrals: Stan Rizo MD [Primary Care Provider, Internal Medicine] Stand Alone Forms: Naloxone Standing Order EMY
[2025-09-28] MEDS: SODIUM CHLORIDE 0.9% 1,000 ML 1000 ML IV (14:42)
[2025-09-28 14:46] LABS: Allen Test for ABG Passed? Positive; Blood Gas Collection Site Left Radial; HCO3 ABG 19 mmol/L (23-27); Oxygen Saturation ABG 94 % (95-100); PCO2 ABG 31.9 mmHg (35-45); PO2 ABG 71 mmHg (80-100); TCO2 ABG 18 mmol/L (23-27)
[2025-09-28 14:58] LABS: Add Manual Diff / Slide Review NO; Hematocrit 35.3 % (41-53); Hemoglobin 11.8 g/dL (13.5-17.5); Lymphocytes Absolute Auto 700 /uL (1100-4500); Mean Corpuscular HGB Conc 33.5 % (30-36); Mean Corpuscular Hemoglobin 31.3 PG (26-34); Mean Corpuscular Volume 93.4 fL (80-100); Platelet Count 190 X10^3/uL (150-400)
[2025-09-28] MEDS: PIPERACILLIN/TAZO 4.5 GM in SODIUM CHLORIDE 0.9% 100 ML IV (15:00)
[2025-09-28 15:13] LABS: Alanine Aminotransferase 78 IU/L (<50); Albumin 3.8 g/dL (3.5-5.0); Albumin Globulin Ratio 1.4 (1.0-2.8); Alkaline Phosphatase 114 U/L (38-126); Blood Urea Nitrogen 54 mg/dL (9-20); Calcium 9.6 mg/dL (8.4-10.2); Carbon Dioxide 22 mmol/L (22-32); Chloride 105 mmol/L (98-107); Estimated Glomerular Filt Rate 50 mL/min (>60); Globulin 2.8 g/dL (1.7-4.1); Glucose 133 mg/dL (70-99); HEMOLYSIS < 15 (0-50); Potassium 3.6 mmol/L (3.4-5.1); Sodium 140 mmol/L (137-145); Total Protein 6.6 g/dL (6.3-8.2)
[2025-09-28 15:14] LABS: Acetaminophen < 10 ug/mL (10-30); Ethanol (ETOH) < 10 mg/dL (<10); Salicylate < 1.0 mg/dL (<20)
[2025-09-28 15:19] LABS: Lactate (Lactic Acid) 4.6 mmol/L (0.7-2.1)
[2025-09-28 15:29] LABS: Procalcitonin 0.243 ng/mL (<0.5)
[2025-09-28] MEDS: NOREPINEPHRINE BIT/0.9 % NACL 4 MG/250 ML PLAST..BAG 27.216 MG IV (15:30)
[2025-09-28] MEDS: SODIUM CHLORIDE 0.9% 2,177.25 ML 1451.5 ML IV (15:37)
[2025-09-28 16:00] LABS: Appearance Urine UA CLEAR; Bilirubin Urine UA NEGATIVE (NEGATIVE); Color Urine UA YELLOW; Glucose Urine UA 3+ g/dL (Negative); Ketones Urine UA NEGATIVE (NEGATIVE); Leukocyte Esterase Urine UA NEGATIVE (NEGATIVE); Nitrite Urine UA NEGATIVE (Negative); Occult Blood Urine UA TRACE-INTACT (Negative); Protein Urine UA TRACE (Negative); Specific Gravity Urine UA 1.020 (1.000-1.035); Urobilinogen Urine UA 0.2 E.U./dL (0.2); pH Urine UA 5.0 (4.5-8.0)
[2025-09-28 16:10] LABS: Culture Indicated Urine Cult Not Indicated
[2025-09-28 16:28] LABS: Reflexed Lactate in 2 Hours Y
--- NOTE | 2025-09-28 16:39 | PC.NURSE ---
Spouse stood up in the room and started walking towards the door and then stopped and sat precariously on a rolling stool. Tried to redirect for safety, unable to, would not get off rolling stool, is not redirectable, agitated. There is another support person with her who is aware of safety risk of rolling stool, also trying to redirect spouse.
[2025-09-28] MEDS: SODIUM CHLORIDE 0.9% 1,000 ML 100 ML IV (16:54)
--- NOTE | 2025-09-28 16:54 | DI.US.S_ITS ---
PROCEDURE: US ABDOMEN LIMITED INDICATIONS: elevated bili TECHNIQUE: Real-time scanning was performed of the abdominal and retroperitoneal organs, with image documentation. COMPARISON: [facility], US, US ABDOMEN LIMITED, 02/28/2023, 11:02. FINDINGS: Liver: Mildly coarsened hepatic echotexture. No focal lesion is identified.. Gallbladder: Small, 4 mm, layering echogenic gallstones. No wall thickening. No pericholecystic edema. Negative sonographic Park's sign. Biliary ducts: Intrahepatic bile ducts are non-dilated. Extrahepatic bile duct caliber measures 4 mm. Normal is 6-7 mm or less in diameter, or 10 mm or less post-cholecystectomy. Pancreas: Visualized portions of the pancreas are sonographically normal. Miscellaneous: No free abdominal fluid. IMPRESSION: Cholelithiasis without sonographic acute cholecystitis. Mildly coarsened hepatic echotexture, which can be seen with hepatocellular dysfunction. Recommend correlation with liver panel. Dictated by: Brody Cruz M.D. on 09/28/2025 at 17:11 Approved by: Brody Cruz M.D. on 09/28/2025 at 17:14
[2025-09-28 17:07] LABS: Lactate 2HR (Lactic Acid Rflx) 2.4 mmol/L (0.7-2.1)
[2025-09-28 17:13] LABS: Creatine Kinase 2369 U/L (55-170)
[2025-09-28 17:17] LABS: NT-proBNP (BNP-Adult 18+) 12500 pg/mL (<450)
[2025-09-28 17:29] LABS: Troponin I 0.390 ng/mL (0.01-0.034)
[2025-09-28 17:45] LABS: UR Morphine/Opiate cutoff 300 Positive (Negative); Ur Specific Gravity Normal (Normal); Urine MDMA Negative (Negative); Urine Methamphetamines Negative (Negative); Urine Tetrahydrocannabinol Negative (Negative); Urine Tricyclic Antidepressant Negative (Negative)
[2025-09-28 17:53] LABS: INR 2.0 (0.9-1.3); Prothrombin Time 22.5 SECONDS (9.4-12.5)
[2025-09-28 17:55] LABS: PTT Partial Thromboplastin Tim 30 SECONDS (25.1-36.5)
[2025-09-28 17:58] LABS: Ammonia (NH3) < 9 umol/L (9-30)
--- NOTE | 2025-09-28 18:45 | PC.NURSE ---
upon pt arrival ,pacheco catheter placed, with core temperature guage
[2025-09-28 19:09] LABS: Creatine Kinase 2477 U/L (55-170)
[2025-09-28 19:17] LABS: Troponin I 0.429 ng/mL (0.01-0.034)
--- NOTE | 2025-09-28 19:27 | CM.SWNOTE ---
ED THIOKOL OPERATOR Note: Pt is a 85yo male, resident of [place], is seen in the ED after being found unresponsive. Pt lives in a house with his , Lexi. Pt's Primary Care Provider is Dr. Stan Rizo and insurance is Medicare and [facility]. Reviewed chart and discussed with multidisciplinary team pt's medical status and initial discharge needs. THIOKOL OPERATOR consulted by ED Provider to meet with pt family, assist in obtain requested planishing hammer operator at bedside. THIOKOL OPERATOR called [facility] and spoke with Fr. Amy Morales who states a Fr. Gonzales Carrero will come to the ED at around 1815. THIOKOL OPERATOR spoke with pt goddaughter, Ambar Manuel ph# [phone], who states she has been encouraging her godparents to get into an assisted living facility for the past year but they have declined. She states pt has been rapidly declining for the past 2-3 months in mentation. She is concerned that neither patient or his are at decisional capacity to designate anyone as a POA. Pt goddaughter states she does not know if there is a POA or POLST completed. THIOKOL OPERATOR updated pt EMR with goddaughter contact information. THIOKOL OPERATOR reviewed pt chart and even looked at [facility] records and could not find a POLST or Advanced Directive on pt EMR. Per ED Provider, bed search for higher level of care has been initiated. Plan: Pending tertiary level of care, ED staff to coordinate. CLAUDIA Daniels
[2025-09-28] MEDS: HEPARIN 5,000 UNIT/ML VIAL 4500 UNIT IV (19:38)
[2025-09-28] MEDS: HEPARIN DRIP 25,000 UNIT/500 ML IV.SOLN 17.418 UNIT IV (19:42)
--- NOTE | 2025-09-28 20:10 | PC.NURSE ---
Ambar God daughter [phone]
--- NOTE | 2025-09-28 20:23 | PC.NURSE ---
THE FOLLOWING IS A DRUM SAW OPERATOR OF THE CODE [employer]. 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 NO CPR STARTED IN FIELD. CODE CALLED OVERHEAD AT 1425. CODE START AT 1430. [address]B IN [address]. PATIENT COLORING NOTED TO BE V[place]ZQUEZ. PATIENT TALKING. 1435 LABS DRAWN 1436 HR 116 1437 HR 92 1438 BP 114/86 O2 97% NRB 1440 ABG DRAWN. LARGE PERICARDIAL EFFUSION NOTED. BG WNL 1442 NOREPINEPHRINE STARTED AT 13.6 ML/HR. OXIMASK PLACED AT 15 L. 1450 TEMPERATURE SENSING SALES 16 FR 10 CC PLACED. 1455 TEMP 96.0 F. 1500 BP 113/[address] NO FURTHER DOCUMENTATION NOTED IN THE CODE BLUE WORKSHEET.
--- NOTE | 2025-09-28 21:15 | PC.NURSE ---
Dr. Govea placed 7fr 3 lumen 20 cm .032 inch yaneth pressure injectable three-lumen CVC to the right external jugular. Dr. Govea verified placement with CXR at bedside.
--- NOTE | 2025-09-28 21:31 | DI.RAD.S_ITS ---
PROCEDURE: XR CHEST 1V INDICATIONS: confirm central line placement TECHNIQUE: One view of the chest was acquired. COMPARISON: [facility], CR, XR CHEST 1V, 09/25/2025, 18:36. FINDINGS: Surgical changes and devices: New right IJ central venous line is present. The just below the level of the aortic knob. There are overlying defibrillator pads and cardiac device peer Lungs and pleura: Lungs are clear. No pleural effusions or pneumothorax. Mediastinum: Stable significant cardiomegaly. Mediastinum is normal. Bones and chest wall: No suspicious bony lesions. Overlying soft tissues appear unremarkable. IMPRESSION: Placement right CVL as described. No change to heart and lungs. Dictated by: Devorah Palomares M.D. on 09/28/2025 at 22:45 Approved by: Devorah Palomares M.D. on 09/28/2025 at 22:47
== END 2025-09-28 22:30 | disposition short-term general hospital (02) ==
PROVIDERS: Emergency Medicine; Emergency Provider Emergency Medicine; Family Provider Internal Medicine; PCP Internal Medicine
DX: I21.4 Non-ST elevation (NSTEMI) myocardial infarction (principal); M62.82 Rhabdomyolysis; K80.20 Calculus of gallbladder without cholecystitis without obstruction; I31.39 Other pericardial effusion (noninflammatory); Z79.01 Long term (current) use of anticoagulants; R94.5 Abnormal results of liver function studies; I48.91 Unspecified atrial fibrillation; S42.351A Displaced comminuted fracture of shaft of humerus, right arm, initial encounter for closed fracture; W18.30XA Fall on same level, unspecified, initial encounter
CPT/HCPCS: 36415; 36556; 36600; 70450; 71045; 71275; 74177; 76705; 80053; 80305; 80320; 80329; 81001; 82140; 82550; 82805; 83605; 83880; 84145; 84484; 85025; 85610; 85730; 87040; 87077; 92950; 93005; 96365; 96366; 96367; 96375; 99284; 99291; 99292; G0480; J0165; J1644; J2060; J2543; J7030; J7050; Q9967